=== PATIENT | male | born 1935 | race Caucasian/White ===

== ENCOUNTER 2017-01-14 07:39 | Emergency (ER) | payer MEDICARE, OTHER ==
--- NOTE | 2017-01-14 09:01 | ER Document Report ---
ED Fall - General Chief Complaint: Shoulder Pain Stated Complaint: SYNCOPE Time seen by provider: 08:57 Mode of Arrival: Medic Information source: Patient, Relative Notes: 81-year-old male presents to ED for left shoulder pain after having a possible syncopal episode this morning around 3:00. Patient is on Plavix. Patient denies headache but states he does have left shoulder pain. Patient is not sure why he fell. - HPI Occurred: This morning Where: Home Context: Lost balance - Patient states he is not sure if he lost his balance or if he just blacked out Associated symptoms: None Location of injury/pain: Shoulder - Left shoulder Quality of pain: Burning, Sharp Severity: Moderate Pain Level: 3 - Related data Allergies/Adverse Reactions: No Known Allergies Allergy (Unverified 04/01/14 01:48) Past Medical History - General Information source: Patient - Social History Smoking Status: Never Smoker Cigarette use (# per day): No Smoking Education Provided: No Frequency of alcohol use: None Drug Abuse: None Lives with: Family Family History: Reviewed & Not Pertinent, Other - Not obtainable due to patient condition - Past Medical History Cardiac Medical History: Reports: Hx Congestive Heart Failure, Hx Heart Attack - per family, Hx Hypercholesterolemia, Hx Hypertension Pulmonary Medical History: Reports: None Denies: Hx Tuberculosis EENT Medical History: Reports: None Neurological Medical History: Reports: Other - Previous syncopal episodes Endocrine Medical History: Reports: Hx Diabetes Mellitus Type 2 - On an insulin pump Renal/ Medical History: Reports: None Malignancy Medical History: Reports None GI Medical History: Reports: None Musculoskeltal Medical History: Reports Hx Arthritis, Reports Hx Musculoskeletal Deformity, Reports Hx Musculoskeletal Trauma Skin Medical History: Reports None Psychiatric Medical History: Reports: None Traumatic Medical History: Reports: None Infectious Medical History: Reports: None Past Surgical History: Reports: Hx Cardiac Surgery - stent - Immunizations Hx Diphtheria, Pertussis, Tetanus Vaccination: Yes Hx Pneumococcal Vaccination: 12/08/13 Review of Systems - Review of Systems Constitutional: No symptoms reported EENT: No symptoms reported Cardiovascular: Syncope - Possible syncopal episode Respiratory: No symptoms reported Gastrointestinal: No symptoms reported Genitourinary: No symptoms reported Male Genitourinary: No symptoms reported Musculoskeletal: Other - Left shoulder pain Skin: No symptoms reported Hematologic/Lymphatic: No symptoms reported Neurological/Psychological: No symptoms reported -: Yes All other systems reviewed and negative Physical Exam - Vital signs Vitals: Temp Pulse Resp BP Pulse Ox 98.1 F 76 18 129/56 H 97 01/14/17 08:00 01/14/17 08:00 01/14/17 08:00 01/14/17 08:00 01/14/17 08:00 Interpretation: Normal - General General appearance: Appears well, Alert - HEENT Head: Normocephalic, Atraumatic Eyes: Normal Pupils: PERRL - Respiratory Respiratory status: No respiratory distress Chest status: Nontender Breath sounds: Normal Chest palpation: Normal - Cardiovascular Rhythm: Regular Heart sounds: Normal auscultation Murmur: No - Abdominal Inspection: Normal Distension: No distension Bowel sounds: Normal Tenderness: Nontender Organomegaly: No organomegaly - Back Back: Normal, Nontender - Extremities General upper extremity: Normal inspection, Normal color, Normal temperature General lower extremity: Normal inspection, Nontender, Normal color, Normal ROM , Normal temperature, Normal weight bearing. No: Arnulfo's sign Shoulder: Tender, Limited ROM - Neurological Neuro grossly intact: Yes Cognition: Normal Orientation: AAOx4 [place] Coma Scale Eye Opening: Spontaneous [place] Coma Scale Verbal: Oriented [place] Coma Scale Motor: Obeys Commands Anthony Coma Scale Total: 15 Speech: Normal Motor strength normal: LUE, RUE, LLE, RLE Sensory: Normal - Psychological Associated symptoms: Normal affect, Normal mood - Skin Skin Temperature: Warm Skin Moisture: Dry Skin Color: Normal Course - Re-evaluation Re-evalutation: 01/14/17 10:06 Discussed x-ray and CT with patient. CT was ordered due to fall and patient on Plavix Dr. Akanksha Lehman was consulted she improved the CAT scan. 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 We'll have patient follow-up with orthopedic due to left shoulder pain. - Vital Signs Vital signs: Temp Pulse Resp BP Pulse Ox 97.9 F 78 18 142/67 H 95 01/14/17 10:20 01/14/17 10:20 01/14/17 10:20 01/14/17 10:20 01/14/17 10:20 - Laboratory Result Diagrams: 01/14/17 08:03 01/14/17 08:03 Laboratory results interpreted by me: 01/14/17 01/14/17 08:03 08:03 RBC 4.34 L Hgb 13.3 L Lymphocytes % 12.7 L Glucose 169 H Total Protein 5.9 L Albumin 3.2 L - Diagnostic Test Radiology reviewed: Image reviewed, Reports reviewed Discharge - Discharge Clinical Impression: Fall Qualifiers: Encounter type: initial encounter Qualified Code(s): W19.XXXA - Unspecified fall, initial encounter Left shoulder pain Qualifiers: Chronicity: acute Qualified Code(s): M25.512 - Pain in left shoulder Condition: Stable Disposition: HOME, SELF-CARE Instructions: Exercise Program for the Shoulder ([facility]) Additional Instructions: Shoulder Injury You have injured your shoulder. This usually results from stretching or tearing of the tendons during trauma. Time and protection are required in order to heal properly. Many injuries are quite disabling, and should be taken seriously. Initial treatment includes cold packs and a sling to rest the shoulder. The physician has assessed the seriousness of your injury, and has outlined a treatment plan. Understand that this treatment may change, depending on how you progress. If a re-examination was recommended, it is important that you follow up as instructed. Some shoulder injuries (such as partial tear of the rotator cuff) are only suspected after you've failed to improve. Call us if there's severe pain, numbness, or loss of function. Acetaminophen Acetaminophen may be taken for pain relief or fever control. It's much safer than aspirin, offering a wider range of "safe" dosages. It is safe during . Some brand names are Tylenol, Panadol, Datril, Anacin 3, Tempra, and Liquiprin. Acetaminophen can be repeated every four hours. The following are maximum recommended dosages: WEIGHT Dose Drops Elixir Chewable( 80mg) (LBS.) drprs=droppers tsp=teaspoon 6 40 mg .4 ml (1/2) 6-11 80 mg .8 ml (full) 1/2 tsp 1 tab 12-16 120 mg 1 1/2 drprs 3/4 tsp 1 1/2 tabs 17-23 160 mg 2 drprs 1 tsp 2 tabs 24-30 240 mg 3 drprs 1 1/2 tsp 3 tabs 30-35 320 mg 2 tsp 4 tabs 36-41 360 mg 2 1/4 tsp 4 1 /2 tabs 42-47 400 mg 2 1/2 tsp 5 tabs 48-53 480 mg 3 tsp 6 tabs 54-59 520 mg 3 1/4 tsp 6 1 /2 tabs 60-64 560 mg 3 1/2 tsp 7 tabs 65-70 600 mg 3 3/4 tsp 7 1 /2 tabs 71-76 640 mg 4 tsp 8 tabs 77-82 720 mg 4 1/2 tsp 9 tabs 83-88 800 mg 5 tsp 10 tabs >89 pounds or adults 650 mg to 900 mg Acetaminophen can be repeated every four hours. Maximum daily dose not to exceed 4000 mg. These maximum recommended dosages are slightly higher than the dosages written on the product container, but these dosages are very safe and well below the toxic dosage for acetaminophen. FOLLOW-UP CARE: If you have been referred to a physician for follow-up care, call the physician s office for an appointment as you were instructed or within the next two days. If you experience worsening or a significant change in your symptoms, notify the physician immediately or return to the Emergency Department at any time for re-evaluation. Forms: Elevated Blood Pressure Referrals: PARKER ANGELES MD [Primary Care Provider] - Follow up as needed DARIEL SCHULZ MD [ACTIVE STAFF] - Follow up as needed
[2017-01-14 09:09] LABS: ABSOLUTE EOSINOPHILS # (AUTO) 0.3 10^3/uL (0.0-0.6); ABSOLUTE MONOCYTES (AUTO) 0.8 10^3/uL (0.1-1.4); ABSOLUTE NEUT (AUTO) 5.6 10^3/uL (1.7-8.2); BASOPHILS % (AUTO) 0.4 % (0-2); EOSINOPHILS % (AUTO) 4.2 % (0-6); HEMOGLOBIN 13.3 g/dL (13.5-17.0); HGB HCT DIFFERENCE 1.9; LYMPHOCYTES % (AUTO) 12.7 % (13-45); MEAN CORPUSCULAR HEMOGLOBIN 30.6 pg (27.0-33.4); MEAN CORPUSCULAR HGB CONC 34.9 g/dL (32.0-36.0); MEAN CORPUSCULAR VOLUME 88 fl (80-97); RED BLOOD COUNT 4.34 10^6/uL (4.35-5.55); RED CELL DISTRIBUTION WIDTH 13.2 % (11.5-14.0); SEGMENTED NEUTROPHILS % (AUTO) 72.7 % (42-78); WHITE BLOOD COUNT 7.7 10^3/uL (4.0-10.5)
[2017-01-14 09:15] LABS: ALANINE AMINOTRANSFERASE 44 U/L (21-72); ALBUMIN 3.2 g/dL (3.5-5.0); ALKALINE PHOSPHATASE 79 U/L (38-126); ANION GAP 13 (5-19); ASPARTATE AMINO TRANSFERASE 33 U/L (17-59); BILIRUBIN,TOTAL 0.8 mg/dL (0.2-1.3); BLOOD UREA NITROGEN 14 mg/dL (7-20); CARBON DIOXIDE 23 mmol/L (22-30); CHLORIDE 103 mmol/L (98-107); CREATINE KINASE 82 U/L (55-170); CREATININE RESULT 0.72 mg/dL (0.52-1.25); GLUCOSE 169 mg/dL (75-110); POTASSIUM 4.1 mmol/L (3.6-5.0); SODIUM 138.7 mmol/L (137-145); TOTAL PROTEIN 5.9 g/dL (6.3-8.2)
[2017-01-14 09:25] LABS: CREATINE KINASE MB 1.56 ng/mL (<4.55)
[2017-01-14 09:28] LABS: TROPONIN I < 0.012 ng/mL
[2017-01-14 10:33] VITALS: BP 142/67
--- NOTE | 2017-01-14 16:11 | EKG REPORT ---
SEVERITY:- ABNORMAL ECG - SINUS RHYTHM RIGHT BUNDLE BRANCH BLOCK : Confirmed by: Evelia Kumar MD 14-Jan-2017 16:10:52
== END 2017-01-14 10:30 | disposition home or self-care (01) ==
LOC: ER 07:39
DX: M25.512 Pain in left shoulder (principal); R55 Syncope and collapse; W19.XXXA Unspecified fall, initial encounter
CPT/HCPCS: 36415; 70450; 80053; 82550; 82553; 84484; 85025; 93005; 93010; 99284

== ENCOUNTER 2017-05-21 00:27 | Inpatient (IN) | payer MEDICARE, OTHER ==
--- NOTE | 2017-05-21 01:08 | ER Document Report ---
ED Blood Sugar Problem - General Chief Complaint: Low Blood Sugar Stated Complaint: POSSIBLE LOW BLOOD SUGER LEVEL Time Seen by Provider: 05/21/17 01:04 Mode of Arrival: Stretcher Information source: Emergency Med Personnel - [facility] Patient complains to provider of: Altered mental status, low blood sugar Onset: This evening Quality of pain: No pain Notes: Patient is an 81-year-old male brought to the emergency room by EMS for low blood sugar, patient's son reports he spoke to him around 6 PM and he was acting normal, a caregiver stop by at 10 PM to check on patient, found him on the floor, cold, clammy, unresponsive, blood sugar was measured to be 36, family and caregiver are unsure how long patient was in this condition, EMS arrived and administered IV dextrose, patient's family members report he is still not quite back to his baseline status at this point in time even though his blood sugar has been adequately improved, they deny any recent illness or injury, no cough, cold or congestion, no recent fevers, no nausea, vomiting or diarrhea, patient lives at home alone, has a history of diabetes as well as other medical problems, including Alzheimer's, he has an insulin pump, family is really unable to provide accurate details given the fact the patient lives home alone - Related Data Allergies/Adverse Reactions: No Known Allergies Allergy (Unverified 04/01/14 01:48) Past Medical History - General Information source: Relative, Emergency Med Personnel - Social History Smoking Status: Former Smoker Family History: Reviewed & Not Pertinent, Other - Not obtainable due to patient condition - Past Medical History Cardiac Medical History: Reports: Hx Congestive Heart Failure, Hx Heart Attack - per family, Hx Hypercholesterolemia, Hx Hypertension Pulmonary Medical History: Denies: Hx Tuberculosis Endocrine Medical History: Reports: Hx Diabetes Mellitus Type 2 - On an insulin pump Musculoskeltal Medical History: Reports Hx Arthritis, Reports Hx Musculoskeletal Deformity, Reports Hx Musculoskeletal Trauma Psychiatric Medical History: Reports: Hx Schizophrenia Past Surgical History: Reports: Hx Cardiac Surgery - stent - Immunizations Hx Diphtheria, Pertussis, Tetanus Vaccination: Yes Hx Pneumococcal Vaccination: 12/08/13 Review of Systems - Review of Systems -: Yes ROS unobtainable due to patient's medical condition Neurological/Psychological: No symptoms reported Physical Exam - Vital signs Vitals: Resp Pulse Ox 22 H 92 05/21/17 00:29 05/21/17 00:29 Interpretation: Tachypneic - General General appearance: Alert - HEENT Head: Normocephalic, Atraumatic Eyes: Normal Conjunctiva: Normal Extraocular movements intact: Yes Eyelashes: Normal Pupils: PERRL Mucous membranes: Dry Pharynx: Normal Neck: Normal - Respiratory Respiratory status: No respiratory distress Chest status: Nontender Breath sounds: Normal Chest palpation: Normal - Cardiovascular Rhythm: Regular Heart sounds: Normal auscultation Murmur: No - Abdominal Distension: Distended Bowel sounds: Hypoactive Tenderness: Nontender Organomegaly: No organomegaly - Back Back: Normal - Extremities General upper extremity: Normal inspection General lower extremity: Normal inspection - Neurological Orientation: Disoriented to place, Disoriented to time, Disoriented to events Anthony Coma Scale Eye Opening: Spontaneous [place] Coma Scale Verbal: Confused Anthony Coma Scale Motor: Obeys Commands Anthony Coma Scale Total: 14 Cranial nerves: Normal - Skin Skin Temperature: Cool Skin Moisture: Dry Skin Color: Pale Course - Re-evaluation Re-evalutation: 05/21/17 02:40 Patient with hypercapnia and acidosis, likely related to low blood sugar and unknown time of patient being hypoxic related to this, patient was discussed with the hospitalist who agrees to admit for further evaluation and treatment - Vital Signs Vital signs: Temp Pulse Resp BP Pulse Ox 97.9 F 18 157/109 H 94 05/21/17 01:00 05/21/17 01:01 05/21/17 01:00 05/21/17 01:01 - Laboratory Result Diagrams: 05/21/17 01:21 05/21/17 01:21 Laboratory results interpreted by me: 05/21/17 05/21/17 05/21/17 00:33 01:21 01:21 WBC 11.7 H Seg Neutrophils % 85.2 H Lymphocytes % 8.0 L Absolute Neutrophils 9.9 H VBG pH VBG pCO2 BUN 27 H POC Glucose 111 H 05/21/17 01:21 WBC Seg Neutrophils % Lymphocytes % Absolute Neutrophils VBG pH 7.24 L VBG pCO2 66.3 H* BUN POC Glucose - Diagnostic Test Radiology reviewed: Image reviewed, Reports reviewed - EKG Interpretation by Me EKG shows normal: Sinus rhythm [place]/QRS: RBBB Additional EKG results interpreted by me: 05/21/17 02:41 Ventricular trigeminy - Transfer of Care Care transferred to following provider: Dr. Sparks Critical Care Note - Critical Care Note Total time excluding time spent on procedures (mins): 40 Comments: Patient with altered mental status, low blood sugar, hypercapnic on blood gas, likely from possible anoxic brain injury related to hypoglycemia, patient was discussed with the hospitalist who agrees to admit for further evaluation and treatment Discharge - Discharge Clinical Impression: Hypercapnic acidosis, Hypoglycemia, Metabolic encephalopathy Condition: Serious Disposition: ADMITTED INPATIENT Admitting Provider: Hospitalist Unit Admitted: [facility]
[2017-05-21 01:37] LABS: VENOUS BLOOD BASE EXCESS -1.6 mmol/L; VENOUS BLOOD HCO3 27.6 mmol/L (20-32); VENOUS BLOOD PH 7.24 (7.30-7.42)
[2017-05-21 01:44] LABS: ABSOLUTE BASOPHILS # (AUTO) 0.1 10^3/uL (0.0-0.2); ABSOLUTE EOSINOPHILS # (AUTO) 0.1 10^3/uL (0.0-0.6); ABSOLUTE LYMPHOCYTES (AUTO) 0.9 10^3/uL (0.5-4.7); ABSOLUTE MONOCYTES (AUTO) 0.7 10^3/uL (0.1-1.4); ABSOLUTE NEUT (AUTO) 9.9 10^3/uL (1.7-8.2); BASOPHILS % (AUTO) 0.5 % (0-2); EOSINOPHILS % (AUTO) 0.5 % (0-6); HEMOGLOBIN 15.5 g/dL (13.5-17.0); HGB HCT DIFFERENCE 1.5; MEAN CORPUSCULAR HGB CONC 34.4 g/dL (32.0-36.0); MEAN CORPUSCULAR VOLUME 90 fl (80-97); MONOCYTES % (AUTO) 5.8 % (3-13); RED BLOOD COUNT 4.99 10^6/uL (4.35-5.55); RED CELL DISTRIBUTION WIDTH 13.2 % (11.5-14.0); SEGMENTED NEUTROPHILS % (AUTO) 85.2 % (42-78); WHITE BLOOD COUNT 11.7 10^3/uL (4.0-10.5)
[2017-05-21 01:48] LABS: VENOUS BLOOD PCO2 66.3 mmHg (35-63)
[2017-05-21 01:52] LABS: ALANINE AMINOTRANSFERASE 37 U/L (21-72); ALBUMIN 4.3 g/dL (3.5-5.0); ALKALINE PHOSPHATASE 107 U/L (38-126); ANION GAP 13 (5-19); ASPARTATE AMINO TRANSFERASE 57 U/L (17-59); BILIRUBIN,DIRECT 0.3 mg/dL (0.0-0.4); BILIRUBIN,TOTAL 0.7 mg/dL (0.2-1.3); BLOOD UREA NITROGEN 27 mg/dL (7-20); CALCIUM 9.2 mg/dL (8.4-10.2); CARBON DIOXIDE 24 mmol/L (22-30); CHLORIDE 105 mmol/L (98-107); CREATININE RESULT 1.12 mg/dL (0.52-1.25); GLUCOSE 84 mg/dL (75-110); POTASSIUM 3.9 mmol/L (3.6-5.0); SODIUM 142.1 mmol/L (137-145); TOTAL PROTEIN 7.8 g/dL (6.3-8.2)
--- NOTE | 2017-05-21 01:56 | RADIOLOGY REPORT (SQ) ---
EXAM DESCRIPTION: CHEST SINGLE VIEW COMPLETED DATE/TIME: 05/21/2017 1:48 am REASON FOR STUDY: ams COMPARISON: 04/28/2014 EXAM PARAMETERS: NUMBER OF VIEWS: One view. TECHNIQUE: Single frontal radiographic view of the chest acquired. RADIATION DOSE: NA LIMITATIONS: None. FINDINGS: LUNGS AND PLEURA: No opacities, masses or pneumothorax. No pleural effusion. MEDIASTINUM AND HILAR STRUCTURES: No masses. Contour normal. HEART AND VASCULAR STRUCTURES: Heart normal in size. Normal vasculature. BONES: No acute findings. HARDWARE: None in the chest. OTHER: No other significant finding. IMPRESSION: NO ACUTE RADIOGRAPHIC FINDING IN THE CHEST. TECHNICAL DOCUMENTATION: JOB ID: [id number]
--- NOTE | 2017-05-21 01:56 | RADIOLOGY REPORT (SQ) ---
EXAM DESCRIPTION: CT HEAD WITHOUT COMPLETED DATE/TIME: 05/21/2017 1:47 am REASON FOR STUDY: ams, fall, low glucose COMPARISON: 01/14/2017 TECHNIQUE: Axial images acquired through the brain without intravenous contrast. Images reviewed wi th bone, brain and subdural windows. Images stored on PACS. All CT scanners at this facility use dose modulation, iterative reconstruction, and/or weight based d osing when appropriate to reduce radiation dose to as low as reasonably achievable (ALARA). [facility]: Dose Right [facility]: CareDose [facility]: Dose Right [facility]: Teradose 4D [facility]: SocialVolt RADIATION DOSE: mGy. LIMITATIONS: None. FINDINGS: VENTRICLES: Prominent. CEREBRUM: No masses. No hemorrhage. No midline shift. Areas of low density in the white matter mos t likely due to chronic micro-vascular ischemic change. No evidence for acute infarction. CEREBELLUM: Old cerebellar infarcts. No hemorrhage. No mass effect. EXTRAAXIAL SPACES: Age-related involutional change. No fluid collections. No masses. ORBITS AND GLOBE: No intra- or extraconal masses. Normal contour of globe without masses. CALVARIUM: No fracture. PARANASAL SINUSES: No fluid or mucosal thickening. SOFT TISSUES: No mass or hematoma. OTHER: No other significant finding. IMPRESSION: CHRONIC CHANGES OF ATROPHY AND MICROVASCULAR ISCHEMIA. Old cerebellar infarcts. NO ACUTE PROCESS. TECHNICAL DOCUMENTATION: JOB ID: [id number] Quality ID # [id number]: Final reports with documentation of one or more dose reduction techniques (e.g., Au tomated exposure control, adjustment of the mA and/or kV according to patient size, use of iterative reconstruction technique) 2010 [employer]- All Rights Reserved
[2017-05-21 02:01] LABS: MAGNESIUM 2.1 mg/dL (1.6-2.3)
[2017-05-21 02:06] LABS: ALCOHOL < 10 mg/dL (NONE DETECTED)
[2017-05-21] MEDS ORDERED: ONDANSETRON HCL INJ/PF 4 MG/2 ML SDV ONE ×2 (02:18→03:22)
[2017-05-21] MEDS ORDERED: PHARMACY COMMUNICATION ORDER MC NR (02:30)
[2017-05-21] MEDS ORDERED: LORAZEPAM INJ 2 MG/1 ML VIAL IV ONE (03:02)
[2017-05-21] MEDS ORDERED: GLUCAGON,HUMAN RECOMB 1 MG INJ IM PRN (03:15)
[2017-05-21] MEDS ORDERED: DEXTROSE 50%-WATER 25 GM/50 ML DISP.SYRIN IV PRN ×2 (03:15)
[2017-05-21] MEDS ORDERED: DEXTROSE 40% GEL 15 GM TUBE PO PRN ×2 (03:15)
--- NOTE | 2017-05-21 03:26 | RADIOLOGY REPORT (SQ) ---
EXAM DESCRIPTION: ABDOMEN 2 VIEWS COMPLETED DATE/TIME: 05/21/2017 3:18 am REASON FOR STUDY: distension vomiting COMPARISON: 11/26/2013 NUMBER OF VIEWS: Two views. TECHNIQUE: Supine and erect/decubitus radiographic images of the abdomen acquired. LIMITATIONS: None. FINDINGS: FREE AIR: None. No abnormal gas collections. LUNG BASES: Clear. BOWEL GAS PATTERN: Gastric distension. Small and large bowel normal. CALCIFICATIONS: No suspicious calcifications. SOFT TISSUES: No gross mass or suggestion of organomegaly. HARDWARE: None in the abdomen. BONES: No acute fracture. No worrisome bone lesions. OTHER: No other significant finding. IMPRESSION: Marked gastric distention. TECHNICAL DOCUMENTATION: JOB ID: [id number] [employer]- All Rights Reserved
[2017-05-21] MEDS: IPRATROPIUM/ALBUTEROL 0.5-2.5 MG/3 ML AMPUL NEB PRN (03:31)
[2017-05-21] MEDS ORDERED: LIDOCAINE 1% INJ-PF (10 MG/ML) 30 ML SDV ONE (03:46)
[2017-05-21] MEDS ORDERED: ALBUTEROL SULFATE 0.083% NEB 2.5 MG/3 ML AMPUL NEB ONE (03:47)
[2017-05-21] MEDS ORDERED: ETOMIDATE INJ/PF 20 MG/10 ML SDV IV ONE (04:00)
[2017-05-21 04:38] LABS: ARTERIAL BLOOD BASE EXCESS -1.4 mmol/L; ARTERIAL BLOOD O2 SATURATION 45.6 % (94-98)
--- NOTE | 2017-05-21 04:39 | RADIOLOGY REPORT (SQ) ---
EXAM DESCRIPTION: CHEST SINGLE VIEW COMPLETED DATE/TIME: 05/21/2017 4:31 am REASON FOR STUDY: DB COMPARISON: 05/21/2017 0130 hours EXAM PARAMETERS: NUMBER OF VIEWS: One view. TECHNIQUE: Single frontal radiographic view of the chest acquired. RADIATION DOSE: NA LIMITATIONS: None. FINDINGS: LUNGS AND PLEURA: Basilar opacities not seen previously. Question aspiration complex. MEDIASTINUM AND HILAR STRUCTURES: No masses. Contour normal. HEART AND VASCULAR STRUCTURES: Heart normal in size. Normal vasculature. BONES: No acute findings. HARDWARE: Nasogastric tube tip in the stomach. OTHER: No other significant finding. IMPRESSION: Basilar opacities not seen previously. Question aspiration complex. TECHNICAL DOCUMENTATION: JOB ID: [id number]
--- NOTE | 2017-05-21 05:19 | RADIOLOGY REPORT (SQ) ---
EXAM DESCRIPTION: CT ABD/PELVIS WITH IV ONLY COMPLETED DATE/TIME: 05/21/2017 4:47 am REASON FOR STUDY: abd pain, vomiting COMPARISON: None. TECHNIQUE: CT scan of the abdomen and pelvis performed using helical scanning technique with dynamic intravenous contrast injection. No oral contrast. Images reviewed with lung, soft tissue, and bone windows. Reconstructed coronal and sagittal MPR images reviewed. Delayed images for evaluation of the urinary system also acquired. All images stored on PACS. All CT scanners at this facility use dose modulation, iterative reconstruction, and/or weight based d osing when appropriate to reduce radiation dose to as low as reasonably achievable (ALARA). [facility]: Dose Right [facility]: CareDose [facility]: Dose Right [facility]: Teradose 4D [facility]: u.sit CONTRAST TYPE AND DOSE: contrast/concentration: Isovue 370.00 mg/ml; Total Contrast Delivered: 94.0 ml; Total Saline Delivered: 58.8 ml RENAL FUNCTION: Creatinine 1.12 RADIATION DOSE: Up-to-date CT equipment and radiation dose reduction techniques were employed. CTDIv ol: 16.6 - 19.9 mGy. DLP: 2067 mGy-cm.. LIMITATIONS: None. FINDINGS: LOWER CHEST: Bilateral pleural effusions. Air bronchograms indicating basilar pneumonia. LIVER: Normal size. No masses. No dilated ducts. SPLEEN: Normal size. No focal lesions. PANCREAS: No masses. No significant calcifications. No adjacent inflammation or peripancreatic fluid collections. Pancreatic duct not dilated. GALLBLADDER: No identified stones by CT criteria. No inflammatory changes to suggest cholecystitis. ADRENAL GLANDS: No significant masses or asymmetry. RIGHT KIDNEY AND URETER: Right renal cyst. No significant calcifications. No hydronephrosis or hy droureter. LEFT KIDNEY AND URETER: No solid masses. No significant calcifications. No hydronephrosis or hydr oureter. AORTA AND VESSELS: No aneurysm. No dissection. Renal arteries, SMA, celiac without stenosis. RETROPERITONEUM: No retroperitoneal adenopathy, hemorrhage or masses. BOWEL AND PERITONEAL CAVITY: No masses or inflammatory changes. No free fluid or peritoneal masses. APPENDIX: Normal. PELVIS: No mass. No free fluid. Normal bladder. ABDOMINAL WALL: No masses. No hernias. BONES: No significant or acute findings. OTHER: NG tube. Stomach decompressed. IMPRESSION: Bilateral pleural effusions with bilateral pneumonia. No acute intra-abdominal process. TECHNICAL DOCUMENTATION: JOB ID: [id number] Quality ID # [id number]: Final reports with documentation of one or more dose reduction techniques (e.g., Au tomated exposure control, adjustment of the mA and/or kV according to patient size, use of iterative reconstruction technique) 2010 [employer]- All Rights Reserved
--- NOTE | 2017-05-21 05:20 | RADIOLOGY REPORT (SQ) ---
EXAM DESCRIPTION: KUB/ABDOMEN (SINGLE VIEW) COMPLETED DATE/TIME: 05/21/2017 5:01 am REASON FOR STUDY: NGT COMPARISON: 05/21/2017 0301 hours NUMBER OF VIEWS: One view. TECHNIQUE: Supine radiographic image of the abdomen acquired. LIMITATIONS: None. FINDINGS: BOWEL GAS PATTERN: Stomach decompressed. CALCIFICATIONS: No suspicious calcifications. SOFT TISSUES: No gross mass or suggestion of organomegaly. HARDWARE: Nasogastric tube tip in the stomach. BONES: No acute fracture. No worrisome bone lesions. OTHER: Contrast in the kidneys. IMPRESSION: Decompression of the stomach after placement of NG tube. TECHNICAL DOCUMENTATION: JOB ID: [id number] [employer]- All Rights Reserved
[2017-05-21] MEDS ORDERED: LEVOFLOXACIN 750 MG/D5W RTU 150 ML IV ONE (05:24)
[2017-05-21 05:41] LABS: APPEARANCE,URINE SLIGHTLY-CLOUDY; BILIRUBIN,URINE NEGATIVE (NEGATIVE); GLUCOSE, URINE 50 mg/dL (NEGATIVE); KETONES,URINE NEGATIVE (NEGATIVE); LEUKOCYTE ESTERASE,URINE NEGATIVE (NEGATIVE); NITRITE,URINE NEGATIVE (NEGATIVE); PROTEIN,URINE 100 mg/dL (NEGATIVE); URINE SPECIFIC GRAVITY 1.029; UROBILINOGEN,URINE NEGATIVE mg/dL (<2.0)
[2017-05-21 06:08] LABS: CREATINE KINASE MB 3.08 ng/mL (<4.55)
[2017-05-21 06:09] LABS: ARTERIAL BLOOD BASE EXCESS -1.8 mmol/L; ARTERIAL BLOOD O2 SATURATION 98.2 % (94-98)
[2017-05-21 06:11] LABS: TROPONIN I < 0.012 ng/mL
[2017-05-21] MEDS ORDERED: ACETAMINOPHEN 325 MG TABLET PO PRN (06:22)
[2017-05-21] MEDS ORDERED: GUAIFENESIN SYRP 200 MG/10 ML UDC PO PRN (06:22)
[2017-05-21] MEDS ORDERED: MINERAL OIL ENEMA 133 ML PR PRN (06:24)
[2017-05-21] MEDS ORDERED: POTASSI CL 20 MEQ/D5-1/2NS 1L 1,000 ML IV ONE (06:36)
--- NOTE | 2017-05-21 06:50 | PDOC H&P ---
History of Present Illness Admission Date/PCP: 05/21/17 02:20 PARKER ANGELES MD Patient complains of: Altered mental status History of Present Illness: ESNTHIL WALDEN JR is a 81 year old male with a past medical history of diabetes, depression, anxiety, COPD, diastolic heart failure and coronary artery disease who would been in his usual state of health until approximately 4 hours prior to being found by caregiver on the floor, cold, clammy and unresponsive. Blood sugar was found to be 36 EMS arrived administering IV dextrose and brought to the emergency room for evaluation. Family members at bedside verify he is not mentating at baseline. His initial workup is unremarkable but develops nausea with vomiting and abdominal distention. An abdominal series was obtained showing market gastric distention, an NG tube was placed, CT abdomen however is unremarkable for intra-abdominal process however shows bilateral pneumonia with small effusions. He started on BiPAP, empiric antibiotics and referred to the hospitalist for admission. Patient is unable to provide history. Family members are no longer at bedside. Past Medical History Cardiac Medical History: Reports: Congestive Heart Failure, Myocardial Infarction - per family, Hyperlipidema, Hypertension Pulmonary Medical History: Denies: Tuberculosis Endocrine Medical History: Reports: Diabetes Mellitus Type 2 - On an insulin pump Musculoskeltal Medical History: Reports: Arthritis Hematology: Denies: Anemia, Sickle Cell Disease Social History Information Source: Emergency Med Personnel, [facility] Records Lives with: Alone Smoking Status: Former Smoker Frequency of Alcohol Use: None Hx Recreational Drug Use: No Hx Prescription Drug Abuse: No - Advance Directive Resuscitation Status: Full Code Family History Family History: Reviewed & Not Pertinent, Other - Not obtainable due to patient condition Parental Family History Reviewed: Yes - Unobtainable Children Family History Reviewed: Yes - Unobtainable Sibling(s) Family History Reviewed.: Yes - Unobtainable Medication/Allergy Home Medications: Aspirin [Aspirin 81 mg Chewable Tablet] 81 mg PO DAILY 04/01/14 Atorvastatin Calcium 10 mg PO QHS 04/01/14 Citalopram Hydrobromide [Celexa 40 mg Tablet] 40 mg PO DAILY 04/01/14 Insulin Glargine,Hum.rec.anlog [Lantus] 50 units SQ QHS 04/01/14 Insulin Lispro [Humalog] 04/01/14 Loratadine [Claritin] 10 mg PO DAILY 06/03/14 Metoprolol Tartrate [Lopressor 50 mg Tablet] 50 mg PO BID 04/01/14 Metoprolol Tartrate [Lopressor 50 mg Tablet] 50 mg PO BID 04/01/14 Ticagrelor [Brilinta 90 mg Tablet] 90 mg PO BID 04/01/14 Tiotropium [place] [Spiriva Handihaler 18 mcg/dose (30 Dose)] 1 inh IH DAILY 01/10 Allergies/Adverse Reactions: No Known Allergies Allergy (Verified 05/21/17 06:13) Review of Systems ROS unobtainable: Due to mental status - Unobtainable Physical Exam Vital Signs: Temp Pulse Resp BP Pulse Ox 97.9 F 22 H 115/59 L 100 05/21/17 01:00 05/21/17 06:15 05/21/17 06:15 05/21/17 06:15 General appearance: PRESENT: disheveled, mild distress Head exam: PRESENT: atraumatic, normocephalic Eye exam: PRESENT: conjunctiva pink, EOMI, PERRLA. ABSENT: scleral icterus Ear exam: PRESENT: normal external ear exam Mouth exam: PRESENT: moist, tongue midline Neck exam: ABSENT: carotid bruit, JVD, lymphadenopathy, thyromegaly Respiratory exam: PRESENT: accessory muscle use, crackles, prolonged expiratory phas, rhonchi, symmetrical, tachypnea Cardiovascular exam: PRESENT: RRR. ABSENT: diastolic murmur, rubs, systolic murmur Pulses: PRESENT: normal dorsalis pedis pul Vascular exam: PRESENT: normal capillary refill GI/Abdominal exam: PRESENT: normal bowel sounds, soft. ABSENT: distended, guarding, mass, organolmegaly, rebound, tenderness Rectal exam: PRESENT: deferred Extremities exam: PRESENT: +1 edema Neurological exam: PRESENT: alert, altered, awake, oriented to person, CN II- XII grossly intact. ABSENT: motor sensory deficit Skin exam: PRESENT: dry, intact, warm. ABSENT: cyanosis, rash Results Laboratory Results: 05/21/17 05/21/17 05/21/17 04:25 05:15 05:55 Carbonic Acid 1.71 H 1.16 HCO3/H2CO3 Ratio 15:1 19:1 ABG pH 7.29 L 7.39 ABG pCO2 56.7 H 38.4 ABG pO2 28.4 L* 115.8 H ABG HCO3 26.4 H 22.8 ABG O2 Saturation 45.6 L 98.2 H ABG Base Excess -1.4 -1.8 FiO2 100% 100% Urine Color YELLOW Urine Appearance SLIGHTLY-CLOUDY Urine pH 5.0 Ur Specific [place] 1.029 Urine Protein 100 H Urine Glucose (UA) 50 H Urine Ketones NEGATIVE Urine Blood NEGATIVE Urine Nitrite NEGATIVE Ur Leukocyte Esterase NEGATIVE Urine WBC (Auto) 2 Urine RBC (Auto) 1 05/21/17 05/21/17 05:32 05:32 Creatine Kinase 112 CK-MB (CK-2) 3.08 Troponin I < 0.012 Impressions: Abdomen X-Ray 05/21/17 00:00 IMPRESSION: Marked gastric distention. Head CT 05/21/17 01:35 IMPRESSION: CHRONIC CHANGES OF ATROPHY AND MICROVASCULAR ISCHEMIA. Old cerebellar infarcts. NO ACUTE PROCESS. Abdomen/Pelvis CT 05/21/17 04:00 IMPRESSION: Bilateral pleural effusions with bilateral pneumonia. No acute intra-abdominal process. KUB X-Ray 05/21/17 04:30 IMPRESSION: Decompression of the stomach after placement of NG tube. Assessment & Plan - Diagnosis (1) Pneumonia Is this a current diagnosis for this admission?: YesPlan: Community-acquired pneumonia, empiric antibiotics, albuterol and Atrovent, supplemental oxygen and BiPAP as needed. Follow-up CBC blood and sputum culture (2) Encephalopathy Is this a current diagnosis for this admission?: YesPlan: Multifactorial secondary to hypoglycemia and acute illness however it is unclear how long he has hypoglycemic event persisted. His son spoke with him approximately 4 hours prior to being found hypoglycemic. Continue supportive measures D5 half-normal saline with 20 potassium 150/h with Accu-Cheks every 6 hours. (3) Ileus Is this a current diagnosis for this admission?: YesPlan: Likely secondary to hypoglycemia versus pneumonia. Suggested by marketed gastric distention improved with NG decompression. Supportive care introduction of diet as tolerated. (4) Hypoglycemia Is this a current diagnosis for this admission?: YesPlan: Likely secondary to pneumonia and poor p.o. intake. He is receiving D5 half- normal saline with 20 potassium at 150 an hour with Accu-Cheks every 6 hours. - Time Time Spent: 50 to 70 Minutes - Inpatient Certification Medical Necessity: Need Close Monitoring Due to Risk of Patient Decompensation
[2017-05-21] MEDS: IPRATROPIUM/ALBUTEROL 0.5-2.5 MG/3 ML AMPUL NEB SCH ×3 (08:15→19:58)
[2017-05-21] MEDS ORDERED: ACETAMINOPHEN SOLN 325 MG/10.15 ML UDCUP NG PRN (08:16)
[2017-05-21] MEDS ORDERED: GUAIFENESIN SYRP 200 MG/10 ML UDC NG PRN (08:17)
[2017-05-21] MEDS ORDERED: (PENDING PHARMACY ID) (Citalopram Hydrobromide [Celexa 40 Mg Tablet] 40 MG) PO SCH (10:00)
[2017-05-21] MEDS: METOPROLOL TARTRATE 50 MG TABLET NG SCH ×2 (10:31→21:03)
[2017-05-21] MEDS: ASPIRIN 81 MG TABLET, CHEWABLE NG SCH (10:31)
[2017-05-21] MEDS: TIOTROPIUM BROMIDE DPI 5 CAP/KIT (18 MCG/CAP) IH SCH (10:31)
[2017-05-21] MEDS: CITALOPRAM HYDROBROMIDE 20 MG TABLET PO SCH (10:31)
[2017-05-21 12:10] LABS: CREATINE KINASE MB 6.99 ng/mL (<4.55)
[2017-05-21 12:16] LABS: TROPONIN I < 0.012 ng/mL
--- NOTE | 2017-05-21 12:54 | PDOC PROGRESS REPORT ---
Subjective Progress Note for:: 05/21/17 Physical Exam Vital Signs: Temp Pulse Resp BP Pulse Ox 98.6 F 84 16 108/47 L 94 05/21/17 11:12 05/21/17 11:12 05/21/17 11:12 05/21/17 11:12 05/21/17 11:12 Intake & Output 05/20/17 05/21/17 05/22/17 06:59 06:59 06:59 Intake Total 0 Output Total 0 Balance 0 Weight 87.8 kg GENERAL: This is a well-developed well-nourished appearing white male resting on bilevel Pap currently in no acute distress. HEART: Regular rate and rhythm. No murmurs, rubs or gallops. LUNGS: Left lower lobe coarse breath sounds with equal rise and fall of the chest. The patient is currently on bilevel Pap at the bedside. His FiO2 has been turned down to 75% from 100%. ABDOMEN: Soft, nontender, nondistended with normoactive bowel sounds EXTREMETIES: No clubbing, cyanosis or edema. 1+ peripheral pulses bilaterally. NEURO: Awake, alert and oriented 3. (The patient was just reoriented prior to my coming into the room. Just before this he was found to be only oriented 2) . Cranial nerves II through XII are grossly intact. Results Laboratory Results: 05/21/17 05/21/17 11:28 11:28 Creatine Kinase 192 H CK-MB (CK-2) 6.99 H Troponin I < 0.012 Impressions: Abdomen X-Ray 05/21/17 00:00 IMPRESSION: Marked gastric distention. Head CT 05/21/17 01:35 IMPRESSION: CHRONIC CHANGES OF ATROPHY AND MICROVASCULAR ISCHEMIA. Old cerebellar infarcts. NO ACUTE PROCESS. Abdomen/Pelvis CT 05/21/17 04:00 IMPRESSION: Bilateral pleural effusions with bilateral pneumonia. No acute intra-abdominal process. KUB X-Ray 05/21/17 04:30 IMPRESSION: Decompression of the stomach after placement of NG tube. Assessment & Plan - Diagnosis (1) Acute respiratory failure with hypoxemia Plan: The patient is currently on bilevel Pap. He seems to be tolerating this well. We will just wean down his FiO2. I will continue to follow. He is received a breathing treatment. His respiratory failure secondary to what is likely a community-acquired pneumonia. (2) Pneumonia Qualifiers: Pneumonia type: due to unspecified organism Laterality: bilateral Lung location: lower lobe of lung Qualified Code(s): J18.9 - Pneumonia, unspecified organism Is this a current diagnosis for this admission?: YesPlan: Continue current antibiotics. Monitor white blood cell count. (3) Hypoglycemia Is this a current diagnosis for this admission?: YesPlan: Resolved. Continue to monitor with before meals at bedtime blood glucose checks (4) Ileus Is this a current diagnosis for this admission?: Yes (5) Metabolic encephalopathy Plan: Improved. The patient is currently oriented. - Time Time Spent with patient: 15-24 minutes - Inpatient Certification Medical Necessity: Need Close Monitoring Due to Risk of Patient Decompensation
[2017-05-21] MEDS: INSULIN LISPRO 100 UNIT/ML 3 ML VIAL SUBCUT PRN ×2 (13:36→23:02)
[2017-05-21] MEDS: HEPARIN SOD (PORCINE) 5,000 UNIT/ML 1 ML SYRINGE SUBCUT SCH ×2 (13:36→21:03)
--- NOTE | 2017-05-21 13:51 | EKG REPORT ---
SEVERITY:- ABNORMAL ECG - SINUS RHYTHM VENTRICULAR TRIGEMINY RIGHT BUNDLE BRANCH BLOCK : Confirmed by: Evelia Kumar MD 21-May-2017 13:50:12
--- NOTE | 2017-05-21 13:51 | EKG REPORT ---
SEVERITY:- ABNORMAL ECG - SINUS TACHYCARDIA RIGHT BUNDLE BRANCH BLOCK : Confirmed by: Evelia Kumar MD 21-May-2017 13:50:08
[2017-05-21] MEDS ORDERED: INSULIN LISPRO 100 UNIT/ML 3 ML VIAL SUBCUT ONE ×2 (16:45→18:30)
[2017-05-21 18:11] LABS: TROPONIN I < 0.012 ng/mL
[2017-05-21] MEDS: ATORVASTATIN CALCIUM 10 MG TABLET NG SCH (21:02)
[2017-05-21] MEDS ORDERED: HUM INSULIN NPH/REG INSULIN HM 100 UNIT/1 ML 3 ML SUBCUT ONE (23:17)
[2017-05-22] MEDS: IPRATROPIUM/ALBUTEROL 0.5-2.5 MG/3 ML AMPUL NEB SCH ×4 (02:12→22:13)
[2017-05-22 05:05] LABS: ABSOLUTE LYMPHOCYTES (AUTO) 0.8 10^3/uL (0.5-4.7); ABSOLUTE MONOCYTES (AUTO) 1.3 10^3/uL (0.1-1.4); ABSOLUTE NEUT (AUTO) 12.1 10^3/uL (1.7-8.2); BASOPHILS % (AUTO) 0.2 % (0-2); EOSINOPHILS % (AUTO) 0.1 % (0-6); HEMATOCRIT 32.7 % (37.9-51.0); HGB HCT DIFFERENCE 0.6; LYMPHOCYTES % (AUTO) 5.7 % (13-45); MEAN CORPUSCULAR HGB CONC 33.9 g/dL (32.0-36.0); MEAN CORPUSCULAR VOLUME 92 fl (80-97); RED BLOOD COUNT 3.58 10^6/uL (4.35-5.55); RED CELL DISTRIBUTION WIDTH 13.5 % (11.5-14.0); WHITE BLOOD COUNT 14.2 10^3/uL (4.0-10.5)
[2017-05-22 05:06] LABS: HEMOGLOBIN 11.1 g/dL (13.5-17.0)
[2017-05-22] MEDS: HEPARIN SOD (PORCINE) 5,000 UNIT/ML 1 ML SYRINGE SUBCUT SCH ×3 (05:07→22:21)
[2017-05-22 05:28] LABS: ANION GAP 11 (5-19); BLOOD UREA NITROGEN 35 mg/dL (7-20); CALCIUM 8.1 mg/dL (8.4-10.2); CARBON DIOXIDE 21 mmol/L (22-30); CHLORIDE 103 mmol/L (98-107); CREATININE RESULT 1.26 mg/dL (0.52-1.25); GLUCOSE 361 mg/dL (75-110); POTASSIUM 4.3 mmol/L (3.6-5.0); SODIUM 134.6 mmol/L (137-145)
[2017-05-22] MEDS: INSULIN REG, HUMAN 100 UNIT/ML 3 ML VIAL (PYX) SUBCUT SCH ×3 (08:25→15:55)
[2017-05-22] MEDS: TIOTROPIUM BROMIDE DPI 5 CAP/KIT (18 MCG/CAP) IH SCH (09:06)
[2017-05-22] MEDS: LEVOFLOXACIN 750 MG/D5W RTU 150 ML IV SCH (09:06)
[2017-05-22] MEDS: METOPROLOL TARTRATE 50 MG TABLET NG SCH ×2 (09:06→22:21)
[2017-05-22] MEDS: ASPIRIN 81 MG TABLET, CHEWABLE NG SCH (09:06)
[2017-05-22] MEDS: CITALOPRAM HYDROBROMIDE 20 MG TABLET PO SCH (09:06)
[2017-05-22] MEDS ORDERED: DEXTROSE 40% GEL 15 GM TUBE X 2 PO PRN (09:08)
[2017-05-22] MEDS ORDERED: DEXTROSE 50%-WATER SYRINGE 25 GM/50 ML DOSE IV PRN (09:08)
[2017-05-22] MEDS ORDERED: GLUCAGON,HUMAN RECOMB 1 MG INJ IM PRN (09:08)
[2017-05-22] MEDS ORDERED: DEXTROSE 50%-WATER SYRINGE 12.5 GM/25 ML DOSE IV PRN (09:08)
[2017-05-22] MEDS ORDERED: DEXTROSE 40% GEL 15 GM TUBE PO PRN (09:08)
[2017-05-22] MEDS ORDERED: CLOPIDOGREL BISULFATE 75 MG TABLET PO ONE (10:23)
--- NOTE | 2017-05-22 10:24 | PDOC PROGRESS REPORT ---
Subjective Progress Note for:: 05/22/17 Subjective:: The patient had no acute events overnight. He states that he has no chest pain or shortness of breath. He was on bilevel Pap and tolerated that well. He was transitioned to nasal cannula for breakfast. Physical Exam Vital Signs: Temp Pulse Resp BP Pulse Ox 97.5 F 95 23 H 127/51 H 98 05/22/17 07:13 05/22/17 07:52 05/22/17 07:52 05/22/17 07:13 05/22/17 07:52 Intake & Output 05/21/17 05/22/17 05/23/17 06:59 06:59 06:59 Intake Total 1787 Output Total 650 Balance 1137 Weight 86.3 kg GENERAL: This is a well-developed well-nourished appearing white male resting on nasal cannula at 5 L/min currently in no acute distress. HEART: Regular rate and rhythm. No murmurs, rubs or gallops. LUNGS: Left lower lobe crackles are auscultated with equal rise and fall of the chest. ABDOMEN: Nondistended EXTREMETIES: No clubbing, cyanosis or edema. 1+ peripheral pulses bilaterally. NEURO: Awake, alert and oriented 3. Although the patient is oriented, it is evident that he is confused and still able to pass the orienting questions. He responds inappropriately to other basic questions such as whether or not he had breakfast. The patient does remember having breakfast despite an empty tray being in front of him and he is just having finished breakfast before I walked in the door. Cranial nerves II through XII are grossly intact. Results Laboratory Results: 05/22/17 03:52 05/22/17 03:52 05/22/17 05/22/17 03:52 03:52 WBC 14.2 H RBC 3.58 L Hgb 11.1 L D Hct 32.7 L MCV 92 MCH 31.0 MCHC 33.9 RDW 13.5 Plt Count 143 L Seg Neutrophils % 85.0 H Lymphocytes % 5.7 L Monocytes % 9.0 Eosinophils % 0.1 Basophils % 0.2 Absolute Neutrophils 12.1 H Absolute Lymphocytes 0.8 Absolute Monocytes 1.3 Absolute Eosinophils 0.0 Absolute Basophils 0.0 Sodium 134.6 L Potassium 4.3 Chloride 103 Carbon Dioxide 21 L Anion Gap 11 BUN 35 H Creatinine 1.26 H Est GFR ( Amer) > 60 Est GFR (Non-Af Amer) 55 L Glucose 361 H Calcium 8.1 L Magnesium 2.0 05/21/17 05/21/17 05/21/17 11:28 11:28 17:19 Creatine Kinase 192 H 405 H CK-MB (CK-2) 6.99 H Troponin I < 0.012 05/21/17 17:19 Creatine Kinase CK-MB (CK-2) 10.90 H Troponin I < 0.012 Impressions: Abdomen X-Ray 05/21/17 00:00 IMPRESSION: Marked gastric distention. Head CT 05/21/17 01:35 IMPRESSION: CHRONIC CHANGES OF ATROPHY AND MICROVASCULAR ISCHEMIA. Old cerebellar infarcts. NO ACUTE PROCESS. Abdomen/Pelvis CT 05/21/17 04:00 IMPRESSION: Bilateral pleural effusions with bilateral pneumonia. No acute intra-abdominal process. KUB X-Ray 05/21/17 04:30 IMPRESSION: Decompression of the stomach after placement of NG tube. Assessment & Plan - Diagnosis (1) Acute respiratory failure with hypoxemia Plan: Respiratory failure secondary to community-acquired pneumonia. The patient is on bilevel Pap at night. He is able to be transitioned to nasal cannula during the day without having to return to BiPAP. Overall he is improved. Hopefully we will be able to wean his O2 down. Continue various inhalers and DuoNeb's. (2) Pneumonia Qualifiers: Pneumonia type: due to unspecified organism Laterality: bilateral Lung location: lower lobe of lung Qualified Code(s): J18.9 - Pneumonia, unspecified organism Is this a current diagnosis for this admission?: YesPlan: Continue current antibiotics. The patient is currently on Levaquin. Monitor white blood cell count. This went up overnight. This may be a transient finding before he resumes going back down. If it continues to trend upward or if the patient spikes any fevers we will need to add on an additional agent likely vancomycin. (3) Hypoglycemia Is this a current diagnosis for this admission?: YesPlan: Resolved. Continue to monitor with before meals at bedtime blood glucose checks. (4) Diabetes Plan: The patient presented with hypoglycemia. Now his sugars are running close to 500. He was given 15 units of 7030 overnight along with a dose of regular insulin. I have changed him to Lantus 20 units nightly and added on 5 units before meals of regular insulin along with sliding scale insulin before meals and at bedtime. We will see what his blood sugars do today and adjust accordingly. At home the patient is on an insulin pump and states that his daughter manages that. The patient lives alone I do not know how frequently his daughter comes to monitor his blood sugars. Based on the patient's conversation and obvious mild cognitive impairment, I do have concerns about the patient being on an insulin pump alone. (5) Ileus Is this a current diagnosis for this admission?: YesPlan: Ileus seems to be improved. The patient had 2 incontinent bowel movements overnight. (6) Metabolic encephalopathy Plan: Improved. The patient is currently oriented. However it should be noted that the patient exhibits some level of cognitive impairment that is readily noticeable with basic conversation. (7) Hypertension Plan: Continue home medications metoprolol. (8) Dyslipidemia Plan: Continue atorvastatin. (9) Congestive heart failure Qualifiers: Congestive heart failure chronicity: chronic Plan: Has a history of congestive heart failure. This is likely acute on chronic. That this is likely systolic given that he has bibasilar crackles and no lower extremity edema. Looks as though he is on Plavix at home. I am not clear if the patient has had previous stents for not but he does have a history of [place]. Will give a one-time dose of Lasix. Restart his Plavix. Continue metoprolol. Continue to monitor. - Time Time Spent with patient: 15-24 minutes Anticipated discharge: Home Within: within 48 hours - Inpatient Certification Medical Necessity: Need Close Monitoring Due to Risk of Patient Decompensation
[2017-05-22] MEDS ORDERED: LORAZEPAM 1 MG TABLET PO ONE (11:15)
[2017-05-22] MEDS ORDERED: FUROSEMIDE INJ/PF 20 MG/2 ML SDV IV ONE (11:15)
[2017-05-22] MEDS ORDERED: LISINOPRIL 5 MG TABLET PO ONE (11:30)
[2017-05-22] MEDS: INSULIN LISPRO 100 UNIT/ML 3 ML VIAL SUBCUT PRN ×2 (12:01→15:55)
[2017-05-22] MEDS ORDERED: INSULIN REG, HUMAN 100 UNIT/ML 3 ML VIAL (PYX) SUBCUT ONE (14:00)
[2017-05-22] MEDS: IPRATROPIUM/ALBUTEROL 0.5-2.5 MG/3 ML AMPUL NEB PRN (19:45)
[2017-05-22] MEDS ORDERED: INSULIN GLARGINE,HUM.REC.ANLOG 300 UNIT/3 ML INSULN.PEN SUBCUT SCH (22:00)
[2017-05-22] MEDS ORDERED: LORAZEPAM 1 MG TABLET PO SCH (22:00)
[2017-05-22] MEDS: ATORVASTATIN CALCIUM 10 MG TABLET NG SCH (22:21)
[2017-05-22] MEDS ORDERED: LORAZEPAM INJ 2 MG/1 ML VIAL ONE (23:34)
[2017-05-23] MEDS ORDERED: LORAZEPAM INJ 2 MG/1 ML VIAL IV ONE (00:15)
[2017-05-23] MEDS: IPRATROPIUM/ALBUTEROL 0.5-2.5 MG/3 ML AMPUL NEB SCH ×4 (02:34→20:27)
[2017-05-23 05:41] LABS: ABSOLUTE BASOPHILS # (AUTO) 0.1 10^3/uL (0.0-0.2); ABSOLUTE LYMPHOCYTES (AUTO) 0.9 10^3/uL (0.5-4.7); ABSOLUTE MONOCYTES (AUTO) 1.2 10^3/uL (0.1-1.4); ABSOLUTE NEUT (AUTO) 12.3 10^3/uL (1.7-8.2); BASOPHILS % (AUTO) 0.4 % (0-2); EOSINOPHILS % (AUTO) 0.1 % (0-6); HEMATOCRIT 32.5 % (37.9-51.0); HEMOGLOBIN 11.1 g/dL (13.5-17.0); HGB HCT DIFFERENCE 0.8; LYMPHOCYTES % (AUTO) 6.1 % (13-45); MEAN CORPUSCULAR HEMOGLOBIN 31.2 pg (27.0-33.4); MEAN CORPUSCULAR HGB CONC 34.3 g/dL (32.0-36.0); MEAN CORPUSCULAR VOLUME 91 fl (80-97); MONOCYTES % (AUTO) 8.4 % (3-13); RED BLOOD COUNT 3.57 10^6/uL (4.35-5.55); RED CELL DISTRIBUTION WIDTH 13.3 % (11.5-14.0); WHITE BLOOD COUNT 14.4 10^3/uL (4.0-10.5)
[2017-05-23 05:54] LABS: ANION GAP 11 (5-19); BLOOD UREA NITROGEN 33 mg/dL (7-20); CALCIUM 8.7 mg/dL (8.4-10.2); CARBON DIOXIDE 21 mmol/L (22-30); CHLORIDE 103 mmol/L (98-107); CREATININE RESULT 1.06 mg/dL (0.52-1.25); GLUCOSE 389 mg/dL (75-110)
[2017-05-23] MEDS: HEPARIN SOD (PORCINE) 5,000 UNIT/ML 1 ML SYRINGE SUBCUT SCH ×3 (06:32→22:06)
[2017-05-23] MEDS: INSULIN REG, HUMAN 100 UNIT/ML 3 ML VIAL (PYX) SUBCUT SCH (08:43)
[2017-05-23] MEDS: INSULIN LISPRO 100 UNIT/ML 3 ML VIAL SUBCUT PRN ×3 (08:44→22:18)
[2017-05-23] MEDS ORDERED: LORAZEPAM INJ 2 MG/1 ML VIAL IV PRN (09:37)
[2017-05-23] MEDS: CITALOPRAM HYDROBROMIDE 20 MG TABLET PO SCH (09:59)
[2017-05-23] MEDS: ASPIRIN 81 MG TABLET, CHEWABLE NG SCH (09:59)
[2017-05-23] MEDS ORDERED: (PENDING PHARMACY ID) (Citalopram Hydrobromide [Celexa 40 Mg Tablet] 40 MG) PO SCH (10:00)
[2017-05-23] MEDS: CLOPIDOGREL BISULFATE 75 MG TABLET PO SCH (10:00)
[2017-05-23] MEDS: LEVOFLOXACIN 750 MG/D5W RTU 150 ML IV SCH (10:00)
[2017-05-23] MEDS ORDERED: (PENDING PHARMACY ID) (Lisinopril [Zestril] 2.5 MG) PO SCH (10:00)
[2017-05-23] MEDS: LISINOPRIL 5 MG TABLET PO SCH (10:02)
[2017-05-23] MEDS: METOPROLOL TARTRATE 50 MG TABLET NG SCH ×2 (10:04→22:07)
--- NOTE | 2017-05-23 10:22 | PDOC PROGRESS REPORT ---
Subjective Progress Note for:: 05/23/17 Subjective:: reason for visit: f/u pneumonia, ams, hypoglycemia hospital course: per other's notes - "SENTHIL WALDEN JR is a 81 year old male with a past medical history of diabetes, depression, anxiety, COPD, diastolic heart failure and coronary artery disease who would been in his usual state of health until approximately 4 hours prior to being found by caregiver on the floor, cold, clammy and unresponsive. Blood sugar was found to be 36 EMS arrived administering IV dextrose and brought to the emergency room for evaluation. Family members at bedside verify he is not mentating at baseline. His initial workup is unremarkable but develops nausea with vomiting and abdominal distention. An abdominal series was obtained showing market gastric distention, an NG tube was placed, CT abdomen however is unremarkable for intra- abdominal process however shows bilateral pneumonia with small effusions. He started on BiPAP, empiric antibiotics and referred to the hospitalist for admission. Patient is unable to provide history. Family members are no longer at bedside." his respiratory status seems to have stabilized but his mentation continues to wax and wane with behavior disturbances most notable at night requiring intermittent ativan to keep him calm and safe. he remains on BiPAP, an ABG at presentation shows hypercapneic and hypoxic resp failure improved with NiPPV, review of the old record shows a similar pattern in the past. he received a dose of ativan around 0100 this morning and remains somnolent and unable to participate in his exam. ROS: unobtainable due to his mental state Physical Exam Vital Signs: Temp Pulse Resp BP Pulse Ox 98.4 F 87 20 141/52 H 96 05/23/17 07:39 05/23/17 07:39 05/23/17 07:39 05/23/17 07:39 05/23/17 07:39 Intake & Output 05/22/17 05/23/17 05/24/17 06:59 06:59 06:59 Intake Total 1787 1330 Output Total 650 975 Balance 1137 355 Weight 86.3 kg General appearance: PRESENT: no acute distress, well-developed, well-nourished Head exam: PRESENT: atraumatic, normocephalic Mouth exam: PRESENT: dry mucosa, neck supple, other - BIPAP in place Respiratory exam: PRESENT: crackles, decreased breath sounds - rt base. ABSENT : accessory muscle use Cardiovascular exam: PRESENT: RRR. ABSENT: systolic murmur Pulses: PRESENT: normal radial pulses, normal dorsalis pedis pul GI/Abdominal exam: PRESENT: normal bowel sounds, soft. ABSENT: guarding Extremities exam: PRESENT: pedal edema - trace Musculoskeletal exam: PRESENT: other - muscle tone normal Neurological exam: PRESENT: altered, reflexes normal Skin exam: PRESENT: dry, warm Results Laboratory Results: 05/23/17 04:24 05/23/17 04:24 05/23/17 05/23/17 04:24 04:24 WBC 14.4 H RBC 3.57 L Hgb 11.1 L Hct 32.5 L MCV 91 MCH 31.2 MCHC 34.3 RDW 13.3 Plt Count 147 L Seg Neutrophils % 85.0 H Lymphocytes % 6.1 L Monocytes % 8.4 Eosinophils % 0.1 Basophils % 0.4 Absolute Neutrophils 12.3 H Absolute Lymphocytes 0.9 Absolute Monocytes 1.2 Absolute Eosinophils 0.0 Absolute Basophils 0.1 Sodium 135.0 L Potassium 5.0 Chloride 103 Carbon Dioxide 21 L Anion Gap 11 BUN 33 H Creatinine 1.06 Est GFR ( Amer) > 60 Est GFR (Non-Af Amer) > 60 Glucose 389 H Calcium 8.7 Magnesium 2.0 05/21/17 05/21/17 05/21/17 11:28 11:28 17:19 Creatine Kinase 192 H 405 H CK-MB (CK-2) 6.99 H Troponin I < 0.012 05/21/17 17:19 Creatine Kinase CK-MB (CK-2) 10.90 H Troponin I < 0.012 Impressions: Abdomen X-Ray 05/21/17 00:00 IMPRESSION: Marked gastric distention. Head CT 05/21/17 01:35 IMPRESSION: CHRONIC CHANGES OF ATROPHY AND MICROVASCULAR ISCHEMIA. Old cerebellar infarcts. NO ACUTE PROCESS. Abdomen/Pelvis CT 05/21/17 04:00 IMPRESSION: Bilateral pleural effusions with bilateral pneumonia. No acute intra-abdominal process. KUB X-Ray 05/21/17 04:30 IMPRESSION: Decompression of the stomach after placement of NG tube. Status: Image reviewed by me - agree with rads Assessment & Plan - Diagnosis (1) Diabetes Qualifiers: Diabetes mellitus type: type 2 Diabetes mellitus complication status: with unspecified complications Diabetes mellitus fpc insulin use: with rodent exterminator use Qualified Code(s): E11.8 - Type 2 diabetes mellitus with unspecified complications; Z79.4 - shelter (current) use of insulin Is this a current diagnosis for this admission?: YesPlan: insulin pump removed due to hypoglycemia at presentation now running a bit high , will increase his basal insulin and continue SSI (2) Hypoglycemia Is this a current diagnosis for this admission?: YesPlan: no recurrence; as above (3) Metabolic encephalopathy Is this a current diagnosis for this admission?: YesPlan: improved but not back to baseline; difficult to state how long the effects of the hypoglycemia might linger further complicated by the hypercapnea present on admission. (4) Pneumonia Qualifiers: Pneumonia type: due to unspecified organism Laterality: bilateral Lung location: lower lobe of lung Qualified Code(s): J18.9 - Pneumonia, unspecified organism Is this a current diagnosis for this admission?: YesPlan: continue levaquin, nebs, O2 and NiPPV as needed (5) Acute respiratory failure with hypoxia and hypercapnia Is this a current diagnosis for this admission?: YesPlan: pulmonary toilet as his mental state will permit, continue intermittent and nocturnal BIPAP as he will tolerate unclear at this time whether he uses home o2 or bipap, will need to clarify with family - Time Time Spent with patient: 35 or more minutes Medications reviewed and adjusted accordingly: Yes
[2017-05-23] MEDS: TIOTROPIUM BROMIDE DPI 5 CAP/KIT (18 MCG/CAP) IH SCH (10:27)
[2017-05-23] MEDS: IPRATROPIUM/ALBUTEROL 0.5-2.5 MG/3 ML AMPUL NEB PRN (20:22)
[2017-05-23] MEDS ORDERED: INSULIN GLARGINE,HUM.REC.ANLOG 300 UNIT/3 ML INSULN.PEN SUBCUT SCH (22:00)
[2017-05-23] MEDS: ATORVASTATIN CALCIUM 10 MG TABLET NG SCH (22:07)
[2017-05-24] MEDS: IPRATROPIUM/ALBUTEROL 0.5-2.5 MG/3 ML AMPUL NEB SCH ×4 (02:14→20:06)
[2017-05-24 05:40] LABS: ABSOLUTE EOSINOPHILS # (AUTO) 0.3 10^3/uL (0.0-0.6); BASOPHILS % (AUTO) 0.4 % (0-2); EOSINOPHILS % (AUTO) 3.2 % (0-6); HEMATOCRIT 32.7 % (37.9-51.0); HEMOGLOBIN 11.3 g/dL (13.5-17.0); HGB HCT DIFFERENCE 1.2; LYMPHOCYTES % (AUTO) 9.6 % (13-45); MEAN CORPUSCULAR HEMOGLOBIN 31.4 pg (27.0-33.4); MEAN CORPUSCULAR HGB CONC 34.6 g/dL (32.0-36.0); MEAN CORPUSCULAR VOLUME 91 fl (80-97); MONOCYTES % (AUTO) 9.4 % (3-13); RED CELL DISTRIBUTION WIDTH 13.4 % (11.5-14.0); SEGMENTED NEUTROPHILS % (AUTO) 77.4 % (42-78); WHITE BLOOD COUNT 10.4 10^3/uL (4.0-10.5)
[2017-05-24] MEDS: HEPARIN SOD (PORCINE) 5,000 UNIT/ML 1 ML SYRINGE SUBCUT SCH ×3 (05:48→22:28)
[2017-05-24 05:58] LABS: ANION GAP 9 (5-19); BLOOD UREA NITROGEN 27 mg/dL (7-20); CARBON DIOXIDE 25 mmol/L (22-30); CHLORIDE 105 mmol/L (98-107); CREATININE RESULT 0.93 mg/dL (0.52-1.25); GLUCOSE 250 mg/dL (75-110); SODIUM 138.8 mmol/L (137-145)
[2017-05-24] MEDS: INSULIN LISPRO 100 UNIT/ML 3 ML VIAL SUBCUT PRN ×4 (08:37→22:34)
[2017-05-24] MEDS: CLOPIDOGREL BISULFATE 75 MG TABLET PO SCH (10:33)
[2017-05-24] MEDS: METOPROLOL TARTRATE 50 MG TABLET NG SCH ×2 (10:33→22:27)
[2017-05-24] MEDS: LEVOFLOXACIN 750 MG/D5W RTU 150 ML IV SCH (10:33)
[2017-05-24] MEDS: LISINOPRIL 5 MG TABLET PO SCH (10:33)
[2017-05-24] MEDS: CITALOPRAM HYDROBROMIDE 20 MG TABLET PO SCH (10:33)
[2017-05-24] MEDS: ASPIRIN 81 MG TABLET, CHEWABLE NG SCH (10:33)
--- NOTE | 2017-05-24 11:40 | PDOC PROGRESS REPORT ---
Subjective Progress Note for:: 05/24/17 Subjective:: reason for visit: f/u pneumonia, ams, hypoglycemia hospital course: per other's notes - "SENTHIL WALDEN JR is a 81 year old male with a past medical history of diabetes, depression, anxiety, COPD, diastolic heart failure and coronary artery disease who would been in his usual state of health until approximately 4 hours prior to being found by caregiver on the floor, cold, clammy and unresponsive. Blood sugar was found to be 36 EMS arrived administering IV dextrose and brought to the emergency room for evaluation. Family members at bedside verify he is not mentating at baseline. His initial workup is unremarkable but develops nausea with vomiting and abdominal distention. An abdominal series was obtained showing market gastric distention, an NG tube was placed, CT abdomen however is unremarkable for intra- abdominal process however shows bilateral pneumonia with small effusions. He started on BiPAP, empiric antibiotics and referred to the hospitalist for admission. Patient is unable to provide history. Family members are no longer at bedside." his respiratory status seems to have stabilized but his mentation continues to wax and wane with behavior disturbances most notable at night requiring intermittent ativan to keep him calm and safe. he remains on BiPAP at night, an ABG at presentation shows hypercapneic and hypoxic resp failure improved with NiPPV, review of the old record shows a similar pattern in the past. he is much more interactive with me this morning, very emotionally labile crying at the thought of lying helpless on the floor at home and fearful of dying. he knows he is in the hospital but cannot remember specifics. he is calm for the most part and participates with PT and nursing care. he denies chest pain, fever/chills, n/v/d. ROS: all systems reviewed, see above, remaining systems negative though his mentation is such that reliability is still suspect Physical Exam Vital Signs: Temp Pulse Resp BP Pulse Ox 99.0 F 82 18 128/63 H 97 05/24/17 07:19 05/24/17 07:47 05/24/17 07:47 05/24/17 07:19 05/24/17 07:47 Intake & Output 05/23/17 05/24/17 05/25/17 06:59 06:59 06:59 Intake Total 1330 745 Output Total 975 1000 Balance 355 -255 Weight 86.5 kg General appearance: PRESENT: no acute distress, well-developed, well-nourished Head exam: PRESENT: atraumatic, normocephalic Mouth exam: PRESENT: moist mucosa, neck supple, Respiratory exam: PRESENT: crackles, decreased breath sounds - rt base. ABSENT : accessory muscle use Cardiovascular exam: PRESENT: RRR. ABSENT: systolic murmur Pulses: PRESENT: normal radial pulses, normal dorsalis pedis pul GI/Abdominal exam: PRESENT: normal bowel sounds, soft. ABSENT: guarding Extremities exam: PRESENT: pedal edema - trace Musculoskeletal exam: PRESENT: other - muscle tone normal, moves all 4 though strength is 4/5 at best in major groups, follows commands Neurological exam: PRESENT: alert and awake, oriented to person and place, reflexes normal Skin exam: PRESENT: dry, warm Results Laboratory Results: 05/24/17 04:51 05/24/17 04:51 05/24/17 05/24/17 04:51 04:51 WBC 10.4 RBC 3.60 L Hgb 11.3 L Hct 32.7 L MCV 91 MCH 31.4 MCHC 34.6 RDW 13.4 Plt Count 162 Seg Neutrophils % 77.4 Lymphocytes % 9.6 L Monocytes % 9.4 Eosinophils % 3.2 Basophils % 0.4 Absolute Neutrophils 8.0 Absolute Lymphocytes 1.0 Absolute Monocytes 1.0 Absolute Eosinophils 0.3 Absolute Basophils 0.0 Sodium 138.8 Potassium 4.0 Chloride 105 Carbon Dioxide 25 Anion Gap 9 BUN 27 H Creatinine 0.93 Est GFR ( Amer) > 60 Est GFR (Non-Af Amer) > 60 Glucose 250 H Calcium 9.0 05/21/17 05/21/17 05/21/17 11:28 11:28 17:19 Creatine Kinase 192 H 405 H CK-MB (CK-2) 6.99 H Troponin I < 0.012 05/21/17 17:19 Creatine Kinase CK-MB (CK-2) 10.90 H Troponin I < 0.012 Assessment & Plan - Diagnosis (1) Metabolic encephalopathy Is this a current diagnosis for this admission?: YesPlan: improved but not back to baseline; waxing and waning but overall trend is for the better. difficult to state how long the effects of the hypoglycemia might linger, further complicated by the hypercapnea present on admission. (2) Hypoglycemia Is this a current diagnosis for this admission?: YesPlan: resolved with d/c of insulin pump. no recurrence; cover with SSI (3) Pneumonia Qualifiers: Pneumonia type: due to unspecified organism Laterality: bilateral Lung location: lower lobe of lung Qualified Code(s): J18.9 - Pneumonia, unspecified organism Is this a current diagnosis for this admission?: YesPlan: improved but not back to baseline; continue levaquin, nebs, O2 and NiPPV as needed, particularly at night (4) Acute respiratory failure with hypoxia and hypercapnia Is this a current diagnosis for this admission?: YesPlan: pulmonary toilet as his mental state will permit, continue intermittent and nocturnal BIPAP as he will tolerate unclear at this time whether he uses home o2 or bipap, will need to clarify with family (5) Diabetes Qualifiers: Diabetes mellitus type: type 2 Diabetes mellitus complication status: with unspecified complications Diabetes mellitus half-way insulin use: with half-way use Qualified Code(s): E11.8 - Type 2 diabetes mellitus with unspecified complications; Z79.4 - senior living (current) use of insulin Is this a current diagnosis for this admission?: YesPlan: insulin pump removed due to hypoglycemia at presentation now running a bit high , will increase his basal insulin and continue SSI - Time Time Spent with patient: 25-34 minutes Medications reviewed and adjusted accordingly: Yes Anticipated discharge: Home with Homehealth Within: within 72 hours
[2017-05-24] MEDS: TIOTROPIUM BROMIDE DPI 5 CAP/KIT (18 MCG/CAP) IH SCH (14:19)
[2017-05-24] MEDS: ATORVASTATIN CALCIUM 10 MG TABLET NG SCH (22:28)
[2017-05-24] MEDS: INSULIN GLARGINE,HUM.REC.ANLOG 300 UNIT/3 ML INSULN.PEN SUBCUT SCH (22:35)
[2017-05-25] MEDS: IPRATROPIUM/ALBUTEROL 0.5-2.5 MG/3 ML AMPUL NEB SCH ×4 (02:08→19:39)
[2017-05-25] MEDS: HEPARIN SOD (PORCINE) 5,000 UNIT/ML 1 ML SYRINGE SUBCUT SCH ×3 (05:24→21:11)
[2017-05-25] MEDS: INSULIN LISPRO 100 UNIT/ML 3 ML VIAL SUBCUT PRN ×3 (07:52→21:29)
[2017-05-25] MEDS: ASPIRIN 81 MG TABLET, CHEWABLE NG SCH (09:34)
[2017-05-25] MEDS: CLOPIDOGREL BISULFATE 75 MG TABLET PO SCH (09:34)
[2017-05-25] MEDS: LISINOPRIL 5 MG TABLET PO SCH (09:34)
[2017-05-25] MEDS: CITALOPRAM HYDROBROMIDE 20 MG TABLET PO SCH (09:34)
[2017-05-25] MEDS: LEVOFLOXACIN 750 MG TABLET PO SCH (09:34)
[2017-05-25] MEDS: METOPROLOL TARTRATE 50 MG TABLET NG SCH ×2 (09:35→21:11)
[2017-05-25] MEDS: TIOTROPIUM BROMIDE DPI 5 CAP/KIT (18 MCG/CAP) IH SCH (09:35)
--- NOTE | 2017-05-25 10:26 | PDOC PROGRESS REPORT ---
Subjective Progress Note for:: 05/25/17 Subjective:: reason for visit: f/u pneumonia, ams, hypoglycemia hospital course: per other's notes - "SENTHIL WALDEN JR is a 81 year old male with a past medical history of diabetes, depression, anxiety, COPD, diastolic heart failure and coronary artery disease who would been in his usual state of health until approximately 4 hours prior to being found by caregiver on the floor, cold, clammy and unresponsive. Blood sugar was found to be 36 EMS arrived administering IV dextrose and brought to the emergency room for evaluation. Family members at bedside verify he is not mentating at baseline. His initial workup is unremarkable but develops nausea with vomiting and abdominal distention. An abdominal series was obtained showing market gastric distention, an NG tube was placed, CT abdomen however is unremarkable for intra- abdominal process however shows bilateral pneumonia with small effusions. He started on BiPAP, empiric antibiotics and referred to the hospitalist for admission. Patient is unable to provide history. Family members are no longer at bedside." his respiratory status seems to have stabilized but his mentation continues to wax and wane with behavior disturbances most notable at night requiring intermittent ativan to keep him calm and safe. An ABG at presentation shows hypercapneic and hypoxic resp failure improved with NiPPV, review of the old record shows a similar pattern in the past. he remains more interactive with me this morning, not as emotionally labile. he remembers me from yesterday as his doctor at [facility] but still cannot remember specifics and still gets confused at times. he is calm for the most part and participates with PT and nursing care. he denies chest pain, fever /chills, n/v/d. Review of telemetry reveals frequent PVCs, occasional bigeminy but mostly artifact and no clinically significant arrhytthmia. ROS: all systems reviewed, see above, remaining systems negative though his mentation is such that reliability is still suspect Physical Exam Vital Signs: Temp Pulse Resp BP Pulse Ox 99.2 F 104 H 18 139/68 H 96 05/25/17 03:29 05/25/17 08:07 05/25/17 08:07 05/25/17 03:29 05/25/17 08:07 Intake & Output 05/24/17 05/25/17 05/26/17 06:59 06:59 06:59 Intake Total 745 755 Output Total 1000 475 Balance -255 280 Weight 86.5 kg 81.6 kg General appearance: PRESENT: no acute distress, well-developed, well-nourished Head exam: PRESENT: atraumatic, normocephalic Mouth exam: PRESENT: moist mucosa, neck supple, Respiratory exam: PRESENT: coarse crackles bilat and decreased breath sounds - rt base. ABSENT: accessory muscle use Cardiovascular exam: PRESENT: RRR. ABSENT: systolic murmur Pulses: PRESENT: normal radial pulses, normal dorsalis pedis pul GI/Abdominal exam: PRESENT: normal bowel sounds, soft. ABSENT: guarding Extremities exam: PRESENT: pedal edema - trace Musculoskeletal exam: PRESENT: other - muscle tone normal, moves all 4 though strength is 4/5 at best in major groups, follows commands Neurological exam: PRESENT: alert and awake, oriented to person and place, reflexes normal Skin exam: PRESENT: dry, warm Results Laboratory Results: 05/24/17 04:51 05/24/17 04:51 05/21/17 05/21/17 05/21/17 11:28 11:28 17:19 Creatine Kinase 192 H 405 H CK-MB (CK-2) 6.99 H Troponin I < 0.012 05/21/17 17:19 Creatine Kinase CK-MB (CK-2) 10.90 H Troponin I < 0.012 Assessment & Plan - Diagnosis (1) Metabolic encephalopathy Is this a current diagnosis for this admission?: YesPlan: improved but not back to baseline; waxing and waning but overall trend continues for the better. difficult to state how long the effects of the hypoglycemia might linger, further complicated by the hypercapnea and hypoxia present on admission. (2) Hypoglycemia Is this a current diagnosis for this admission?: YesPlan: resolved with d/c of insulin pump and treatment. no recurrence; cover with basal/SSI (3) Pneumonia Qualifiers: Pneumonia type: due to unspecified organism Laterality: bilateral Lung location: lower lobe of lung Qualified Code(s): J18.9 - Pneumonia, unspecified organism Is this a current diagnosis for this admission?: YesPlan: improved but not back to baseline; continue levaquin, nebs, O2 and NiPPV as needed, particularly at night (4) Acute respiratory failure with hypoxia and hypercapnia Is this a current diagnosis for this admission?: YesPlan: pulmonary toilet as his mental state will permit, continue intermittent and nocturnal BIPAP as he will tolerate unclear at this time whether he uses home o2 or bipap, will need to clarify with family and continue attemtps to wean. f/u cxr in am (5) Diabetes Qualifiers: Diabetes mellitus type: type 2 Diabetes mellitus complication status: with unspecified complications Diabetes mellitus skilled nursing insulin use: with long term acute care registered nurse use Qualified Code(s): E11.8 - Type 2 diabetes mellitus with unspecified complications; Z79.4 - [facility] (current) use of insulin Is this a current diagnosis for this admission?: Yes - Time Time Spent with patient: 25-34 minutes Medications reviewed and adjusted accordingly: Yes - Plan Summary Plan Summary: ok to downgrade, condition continues to improve. I suspect he would benefit from a short course of rehab in a monitored setting before returning home to independent living, social science manager already involved.
[2017-05-25] MEDS ORDERED: IPRATROPIUM/ALBUTEROL 0.5-2.5 MG/3 ML AMPUL NEB PRN (12:20)
[2017-05-25] MEDS: ATORVASTATIN CALCIUM 10 MG TABLET NG SCH (21:10)
[2017-05-25] MEDS: INSULIN GLARGINE,HUM.REC.ANLOG 300 UNIT/3 ML INSULN.PEN SUBCUT SCH (21:23)
[2017-05-25] MEDS ORDERED: INSULIN LISPRO 100 UNIT/ML 3 ML VIAL SUBCUT ONE (22:30)
[2017-05-26] MEDS: IPRATROPIUM/ALBUTEROL 0.5-2.5 MG/3 ML AMPUL NEB SCH ×4 (02:23→20:30)
[2017-05-26] MEDS: HEPARIN SOD (PORCINE) 5,000 UNIT/ML 1 ML SYRINGE SUBCUT SCH ×3 (05:24→21:51)
[2017-05-26 05:26] LABS: ABSOLUTE EOSINOPHILS # (AUTO) 0.5 10^3/uL (0.0-0.6); ABSOLUTE LYMPHOCYTES (AUTO) 1.2 10^3/uL (0.5-4.7); ABSOLUTE MONOCYTES (AUTO) 1.3 10^3/uL (0.1-1.4); ABSOLUTE NEUT (AUTO) 5.4 10^3/uL (1.7-8.2); BASOPHILS % (AUTO) 0.6 % (0-2); EOSINOPHILS % (AUTO) 5.7 % (0-6); HEMATOCRIT 35.7 % (37.9-51.0); HEMOGLOBIN 12.4 g/dL (13.5-17.0); HGB HCT DIFFERENCE 1.5; LYMPHOCYTES % (AUTO) 14.4 % (13-45); MEAN CORPUSCULAR HEMOGLOBIN 31.3 pg (27.0-33.4); MEAN CORPUSCULAR HGB CONC 34.7 g/dL (32.0-36.0); MEAN CORPUSCULAR VOLUME 90 fl (80-97); MONOCYTES % (AUTO) 15.5 % (3-13); RED BLOOD COUNT 3.96 10^6/uL (4.35-5.55); RED CELL DISTRIBUTION WIDTH 13.1 % (11.5-14.0); SEGMENTED NEUTROPHILS % (AUTO) 63.8 % (42-78); WHITE BLOOD COUNT 8.5 10^3/uL (4.0-10.5)
[2017-05-26 05:39] LABS: ANION GAP 10 (5-19); BLOOD UREA NITROGEN 23 mg/dL (7-20); CALCIUM 9.1 mg/dL (8.4-10.2); CARBON DIOXIDE 27 mmol/L (22-30); CHLORIDE 103 mmol/L (98-107); CREATININE RESULT 0.96 mg/dL (0.52-1.25); GLUCOSE 65 mg/dL (75-110); POTASSIUM 4.1 mmol/L (3.6-5.0); SODIUM 140.4 mmol/L (137-145)
--- NOTE | 2017-05-26 08:23 | RADIOLOGY REPORT (SQ) ---
EXAM DESCRIPTION: CHEST SINGLE VIEW COMPLETED DATE/TIME: 05/26/2017 7:46 am REASON FOR STUDY: pneumonia COMPARISON: 05/21/2017. EXAM PARAMETERS: NUMBER OF VIEWS: One view. TECHNIQUE: Single frontal radiographic view of the chest acquired. RADIATION DOSE: NA LIMITATIONS: None. FINDINGS: LUNGS AND PLEURA: Faint basilar density slightly increased. No pleural effusion. No pneu mothorax. MEDIASTINUM AND HILAR STRUCTURES: No masses. Contour normal. HEART AND VASCULAR STRUCTURES: Heart upper limits of normal in size. Normal vasculature. BONES: No acute findings. HARDWARE: None in the chest. OTHER: No other significant finding. IMPRESSION: SLIGHT INCREASE IN BASILAR ATELECTASIS VERSUS INFILTRATE. TECHNICAL DOCUMENTATION: JOB ID: [id number]
--- NOTE | 2017-05-26 10:27 | PDOC PROGRESS REPORT ---
Subjective Progress Note for:: 05/26/17 Subjective:: reason for visit: f/u pneumonia, ams, hypoglycemia hospital course: per other's notes - "SENTHIL WALDEN JR is a 81 year old male with a past medical history of diabetes, depression, anxiety, COPD, diastolic heart failure and coronary artery disease who would been in his usual state of health until approximately 4 hours prior to being found by caregiver on the floor, cold, clammy and unresponsive. Blood sugar was found to be 36 EMS arrived administering IV dextrose and brought to the emergency room for evaluation. Family members at bedside verify he is not mentating at baseline. His initial workup is unremarkable but develops nausea with vomiting and abdominal distention. An abdominal series was obtained showing market gastric distention, an NG tube was placed, CT abdomen however is unremarkable for intra- abdominal process however shows bilateral pneumonia with small effusions. He started on BiPAP, empiric antibiotics and referred to the hospitalist for admission. Patient is unable to provide history. Family members are no longer at bedside." An ABG at presentation shows hypercapneic and hypoxic resp failure improved with NiPPV, review of the old record shows a similar pattern in the past. his respiratory status seems to have stabilized but his mentation continues to wax and wane with behavior disturbances most notable at night requiring intermittent ativan to keep him calm and safe. This happened again last night and since the ativan he is somnolent and slow to respond, a little more confused for me this morning. he is calm for the most part and participates with PT and nursing care. he denies chest pain, fever/chills, n/v/d. Review of telemetry reveals frequent PVCs, occasional bigeminy but mostly artifact and no clinically significant arrhytthmia. ROS: all systems reviewed, see above, remaining systems negative though his mentation is such that reliability remains suspect Physical Exam Vital Signs: Temp Pulse Resp BP Pulse Ox 97.6 F 79 16 131/57 H 91 L 05/26/17 08:00 05/26/17 08:15 05/26/17 08:15 05/26/17 08:00 05/26/17 08:15 Intake & Output 05/25/17 05/26/17 05/27/17 06:59 06:59 06:59 Intake Total 755 1198 Output Total 965 425 Balance 280 773 Weight 81.6 kg 81.2 kg General appearance: PRESENT: no acute distress, well-developed, well-nourished, lethargic Head exam: PRESENT: atraumatic, normocephalic Mouth exam: PRESENT: moist mucosa, neck supple, Respiratory exam: PRESENT: coarse crackles bilat and decreased breath sounds - rt base. ABSENT: accessory muscle use Cardiovascular exam: PRESENT: RRR. ABSENT: systolic murmur Pulses: PRESENT: normal radial pulses, normal dorsalis pedis pul GI/Abdominal exam: PRESENT: normal bowel sounds, soft. ABSENT: guarding Extremities exam: PRESENT: pedal edema - trace Musculoskeletal exam: PRESENT: other - muscle tone normal, moves all 4 though strength is 4/5 at best in major groups, follows only simple commands Neurological exam: PRESENT: sluggish, oriented to person only, reflexes normal Skin exam: PRESENT: dry, warm Results Laboratory Results: 05/26/17 04:44 05/26/17 04:44 05/26/17 05/26/17 04:44 04:44 WBC 8.5 RBC 3.96 L Hgb 12.4 L Hct 35.7 L MCV 90 MCH 31.3 MCHC 34.7 RDW 13.1 Plt Count 206 Seg Neutrophils % 63.8 Lymphocytes % 14.4 Monocytes % 15.5 H Eosinophils % 5.7 Basophils % 0.6 Absolute Neutrophils 5.4 Absolute Lymphocytes 1.2 Absolute Monocytes 1.3 Absolute Eosinophils 0.5 Absolute Basophils 0.0 Sodium 140.4 Potassium 4.1 Chloride 103 Carbon Dioxide 27 Anion Gap 10 BUN 23 H Creatinine 0.96 Est GFR ( Amer) > 60 Est GFR (Non-Af Amer) > 60 Glucose 65 L Calcium 9.1 05/21/17 05/21/17 05/21/17 11:28 11:28 17:19 Creatine Kinase 192 H 405 H CK-MB (CK-2) 6.99 H Troponin I < 0.012 05/21/17 17:19 Creatine Kinase CK-MB (CK-2) 10.90 H Troponin I < 0.012 Impressions: Chest X-Ray 05/26/17 07:00 IMPRESSION: SLIGHT INCREASE IN BASILAR ATELECTASIS VERSUS INFILTRATE. Status: Imported from PACS Assessment & Plan - Diagnosis (1) Metabolic encephalopathy Is this a current diagnosis for this admission?: YesPlan: improved but not back to baseline; waxing and waning but overall trend continues for the better until he owns and requires anxiolytic that sets him back. difficult to state how long the effects of the hypoglycemia might linger, further complicated by the hypercapnea and hypoxia present on admission. (2) Hypoglycemia Is this a current diagnosis for this admission?: YesPlan: resolved with d/c of insulin pump and treatment. no recurrence; cover with basal/SSI (3) Pneumonia Qualifiers: Pneumonia type: due to unspecified organism Laterality: bilateral Lung location: lower lobe of lung Qualified Code(s): J18.9 - Pneumonia, unspecified organism Is this a current diagnosis for this admission?: YesPlan: improved but not back to baseline; continue levaquin, nebs, O2 and NiPPV as needed, particularly at night (4) Acute respiratory failure with hypoxia and hypercapnia Is this a current diagnosis for this admission?: YesPlan: pulmonary toilet as his mental state will permit, continue intermittent and nocturnal BIPAP as he will tolerate unclear at this time whether he uses home o2 or bipap, will need to clarify with family and continue attemtps to wean. f/u cxr looks no worse, about the same (5) Diabetes Qualifiers: Diabetes mellitus type: type 2 Diabetes mellitus complication status: with unspecified complications Diabetes mellitus joint terminal attack controller insulin use: with longterm use Qualified Code(s): E11.8 - Type 2 diabetes mellitus with unspecified complications; Z79.4 - [facility] (current) use of insulin Is this a current diagnosis for this admission?: Yes - Time Time Spent with patient: 15-24 minutes Medications reviewed and adjusted accordingly: Yes Anticipated discharge: SNF - seems like the best for him in the short term as it remains difficult to predict when his mentation will clear enough to return home to independent living
[2017-05-26] MEDS: CITALOPRAM HYDROBROMIDE 20 MG TABLET NG SCH (11:57)
[2017-05-26] MEDS: METOPROLOL TARTRATE 50 MG TABLET PO SCH ×2 (11:58→21:56)
[2017-05-26] MEDS: CLOPIDOGREL BISULFATE 75 MG TABLET PO SCH (11:58)
[2017-05-26] MEDS: ASPIRIN 81 MG TABLET, CHEWABLE NG SCH (11:58)
[2017-05-26] MEDS: LEVOFLOXACIN 750 MG TABLET PO SCH (11:59)
[2017-05-26] MEDS: LISINOPRIL 5 MG TABLET PO SCH (11:59)
[2017-05-26] MEDS: TIOTROPIUM BROMIDE DPI 5 CAP/KIT (18 MCG/CAP) IH SCH (12:00)
[2017-05-26] MEDS: INSULIN LISPRO 100 UNIT/ML 3 ML VIAL SUBCUT PRN ×3 (12:13→21:53)
[2017-05-26] MEDS ORDERED: INSULIN LISPRO 100 UNIT/ML 3 ML VIAL SUBCUT ONE (17:15)
[2017-05-26] MEDS: ATORVASTATIN CALCIUM 10 MG TABLET NG SCH (21:49)
[2017-05-26] MEDS: INSULIN GLARGINE,HUM.REC.ANLOG 300 UNIT/3 ML INSULN.PEN SUBCUT SCH (21:55)
[2017-05-26] MEDS: LORAZEPAM INJ 2 MG/1 ML VIAL IV SCH (21:57)
[2017-05-27] MEDS: IPRATROPIUM/ALBUTEROL 0.5-2.5 MG/3 ML AMPUL NEB SCH ×4 (02:01→19:47)
[2017-05-27] MEDS: HEPARIN SOD (PORCINE) 5,000 UNIT/ML 1 ML SYRINGE SUBCUT SCH ×3 (05:47→22:00)
[2017-05-27] MEDS: INSULIN LISPRO 100 UNIT/ML 3 ML VIAL SUBCUT PRN ×4 (08:18→22:12)
[2017-05-27] MEDS: LEVOFLOXACIN 750 MG TABLET PO SCH (09:33)
[2017-05-27] MEDS: LISINOPRIL 5 MG TABLET PO SCH (09:33)
[2017-05-27] MEDS: CLOPIDOGREL BISULFATE 75 MG TABLET PO SCH (09:33)
[2017-05-27] MEDS: ASPIRIN 81 MG TABLET, CHEWABLE NG SCH (09:33)
[2017-05-27] MEDS: METOPROLOL TARTRATE 50 MG TABLET PO SCH ×2 (09:34→22:13)
[2017-05-27] MEDS: CITALOPRAM HYDROBROMIDE 20 MG TABLET NG SCH (09:34)
[2017-05-27] MEDS: TIOTROPIUM BROMIDE DPI 5 CAP/KIT (18 MCG/CAP) IH SCH (09:35)
--- NOTE | 2017-05-27 11:05 | PDOC PROGRESS REPORT ---
Subjective Progress Note for:: 05/27/17 Subjective:: reason for visit: f/u pneumonia, ams, hypoglycemia hospital course: per other's notes - "SENTHIL WALDEN JR is a 81 year old male with a past medical history of diabetes, depression, anxiety, COPD, diastolic heart failure and coronary artery disease who would been in his usual state of health until approximately 4 hours prior to being found by caregiver on the floor, cold, clammy and unresponsive. Blood sugar was found to be 36 EMS arrived administering IV dextrose and brought to the emergency room for evaluation. Family members at bedside verify he is not mentating at baseline. His initial workup is unremarkable but develops nausea with vomiting and abdominal distention. An abdominal series was obtained showing market gastric distention, an NG tube was placed, CT abdomen however is unremarkable for intra- abdominal process however shows bilateral pneumonia with small effusions. He started on BiPAP, empiric antibiotics and referred to the hospitalist for admission. Patient is unable to provide history. Family members are no longer at bedside." An ABG at presentation shows hypercapneic and hypoxic resp failure improved with NiPPV, review of the old record shows a similar pattern in the past. Review of telemetry revealed frequent PVCs, occasional bigeminy but mostly artifact and no clinically significant arrhytthmia. his respiratory status seems to have stabilized but his mentation continues to wax and wane with behavior disturbances most notable at night requiring intermittent ativan to keep him calm and safe. he is calm for the most part and participates with PT and nursing care. his son reports progressive short term memory loss rapidly worsening over the last couple of months with wild swings in his emotions but no violent behaviors. ROS: he denies chest pain, fever/chills, n/v/d. all systems reviewed, see above , remaining systems negative though his mentation is such that reliability remains suspect Physical Exam Vital Signs: Temp Pulse Resp BP Pulse Ox 99.2 F 84 16 158/65 H 97 05/27/17 08:11 05/27/17 08:11 05/27/17 08:11 05/27/17 08:11 05/27/17 08:11 Intake & Output 05/26/17 05/27/17 05/28/17 06:59 06:59 06:59 Intake Total 1198 405 Output Total 425 200 Balance 773 205 Weight 81.2 kg 81.1 kg General appearance: PRESENT: no acute distress, well-developed, well-nourished Head exam: PRESENT: atraumatic, normocephalic Mouth exam: PRESENT: moist mucosa, neck supple, Respiratory exam: PRESENT: coarse crackles and decreased breath sounds - rt base. ABSENT: accessory muscle use Cardiovascular exam: PRESENT: RRR. ABSENT: systolic murmur Pulses: PRESENT: normal radial pulses, normal dorsalis pedis pul GI/Abdominal exam: PRESENT: normal bowel sounds, soft. ABSENT: guarding Extremities exam: PRESENT: pedal edema - trace Musculoskeletal exam: PRESENT: other - muscle tone normal, moves all 4 though strength is 4/5 at best in major groups, follows only simple commands Neurological exam: PRESENT: oriented to person only, patella reflexes normal, emotional labile - happy to weeping in the same sentence Skin exam: PRESENT: dry, warm Results Laboratory Results: 05/26/17 04:44 05/26/17 04:44 05/21/17 05/21/17 05/21/17 11:28 11:28 17:19 Creatine Kinase 192 H 405 H CK-MB (CK-2) 6.99 H Troponin I < 0.012 05/21/17 17:19 Creatine Kinase CK-MB (CK-2) 10.90 H Troponin I < 0.012 Assessment & Plan - Diagnosis (1) Pneumonia Qualifiers: Pneumonia type: due to unspecified organism Laterality: bilateral Lung location: lower lobe of lung Qualified Code(s): J18.9 - Pneumonia, unspecified organism Is this a current diagnosis for this admission?: YesPlan: improved but not back to baseline; continue levaquin, nebs, O2 and NiPPV only as needed for apnea or resp distress (2) Acute respiratory failure with hypoxia and hypercapnia Is this a current diagnosis for this admission?: YesPlan: pulmonary toilet as his mental state will permit, continue intermittent and nocturnal BIPAP as he will tolerate unclear at this time whether he uses home o2 or bipap, will need to clarify with family and continue attemtps to wean. f/u cxr looks no worse, about the same (3) Hypoglycemia Is this a current diagnosis for this admission?: YesPlan: resolved with d/c of insulin pump and treatment. no recurrence; cover with basal/SSI (4) Metabolic encephalopathy Is this a current diagnosis for this admission?: Yes (5) Diabetes Qualifiers: Diabetes mellitus type: type 2 Diabetes mellitus complication status: with unspecified complications Diabetes mellitus nursing home insulin use: with lip of shank cutter use Qualified Code(s): E11.8 - Type 2 diabetes mellitus with unspecified complications; Z79.4 - care home (current) use of insulin Is this a current diagnosis for this admission?: Yes (6) Vascular dementia with behavior disturbance Is this a current diagnosis for this admission?: YesPlan: I suspect this is complicating his presentation and may account for it actually , if he is unable to continue to self administer his insulin at home. - Time Time Spent with patient: 25-34 minutes Anticipated discharge: SNF Within: within 48 hours
[2017-05-27] MEDS ORDERED: INSULIN LISPRO 100 UNIT/ML 3 ML VIAL SUBCUT ONE (17:30)
[2017-05-27] MEDS: ATORVASTATIN CALCIUM 10 MG TABLET NG SCH (21:59)
[2017-05-27] MEDS: INSULIN GLARGINE,HUM.REC.ANLOG 300 UNIT/3 ML INSULN.PEN SUBCUT SCH (22:02)
[2017-05-27] MEDS: LORAZEPAM INJ 2 MG/1 ML VIAL IV SCH (22:03)
[2017-05-28] MEDS: IPRATROPIUM/ALBUTEROL 0.5-2.5 MG/3 ML AMPUL NEB SCH ×4 (02:35→20:00)
[2017-05-28] MEDS: HEPARIN SOD (PORCINE) 5,000 UNIT/ML 1 ML SYRINGE SUBCUT SCH ×3 (06:26→21:54)
--- NOTE | 2017-05-28 08:44 | PDOC PROGRESS REPORT ---
Subjective Progress Note for:: 05/28/17 Subjective:: reason for visit: f/u pneumonia, ams, hypoglycemia hospital course: per other's notes - "SENTHIL WALDEN JR is a 81 year old male with a past medical history of diabetes, depression, anxiety, COPD, diastolic heart failure and coronary artery disease who would been in his usual state of health until approximately 4 hours prior to being found by caregiver on the floor, cold, clammy and unresponsive. Blood sugar was found to be 36 EMS arrived administering IV dextrose and brought to the emergency room for evaluation. Family members at bedside verify he is not mentating at baseline. His initial workup is unremarkable but develops nausea with vomiting and abdominal distention. An abdominal series was obtained showing market gastric distention, an NG tube was placed, CT abdomen however is unremarkable for intra- abdominal process however shows bilateral pneumonia with small effusions. He started on BiPAP, empiric antibiotics and referred to the hospitalist for admission. Patient is unable to provide history. Family members are no longer at bedside." An ABG at presentation shows hypercapneic and hypoxic resp failure improved with NiPPV, review of the old record shows a similar pattern in the past. Review of telemetry revealed frequent PVCs, occasional bigeminy but mostly artifact and no clinically significant arrhytthmia. his respiratory status seems to have stabilized. his mentation waxes and wanes with behavior disturbances most notable at night requiring intermittent ativan to keep him calm and safe. he is calm for the most part and participates with PT and nursing care. his son reports progressive short term memory loss rapidly worsening over the last couple of months with wild swings in his emotions but no violent behaviors. ROS: he denies chest pain, fever/chills, n/v/d. all systems reviewed, see above , remaining systems negative though his mentation is such that reliability remains suspect Physical Exam Vital Signs: Temp Pulse Resp BP Pulse Ox 99.7 F 99 16 121/63 94 05/28/17 04:21 05/28/17 04:21 05/28/17 04:21 05/28/17 04:21 05/28/17 04:21 Intake & Output 05/27/17 05/28/17 05/29/17 06:59 06:59 06:59 Intake Total 405 1380 Output Total 200 800 Balance 205 580 Weight 81.1 kg 81 kg General appearance: PRESENT: no acute distress, well-developed, well-nourished Head exam: PRESENT: atraumatic, normocephalic Mouth exam: PRESENT: moist mucosa, neck supple, Respiratory exam: PRESENT: rt base coarse crackles and decreased breath sounds ABSENT: accessory muscle use Cardiovascular exam: PRESENT: RRR. ABSENT: systolic murmur Pulses: PRESENT: normal radial pulses, normal dorsalis pedis pul GI/Abdominal exam: PRESENT: normal bowel sounds, soft. ABSENT: guarding Extremities exam: PRESENT: pedal edema - trace Musculoskeletal exam: PRESENT: other - muscle tone normal, moves all 4 and able to follow commands Skin exam: PRESENT: dry, warm Results Laboratory Results: 05/26/17 04:44 05/26/17 04:44 05/21/17 05/21/17 05/21/17 11:28 11:28 17:19 Creatine Kinase 192 H 405 H CK-MB (CK-2) 6.99 H Troponin I < 0.012 05/21/17 17:19 Creatine Kinase CK-MB (CK-2) 10.90 H Troponin I < 0.012 Assessment & Plan - Diagnosis (1) Pneumonia Qualifiers: Pneumonia type: due to unspecified organism Laterality: bilateral Lung location: lower lobe of lung Qualified Code(s): J18.9 - Pneumonia, unspecified organism Is this a current diagnosis for this admission?: Yes (2) Acute respiratory failure with hypoxia and hypercapnia Is this a current diagnosis for this admission?: Yes (3) Hypoglycemia Is this a current diagnosis for this admission?: Yes (4) Metabolic encephalopathy Is this a current diagnosis for this admission?: Yes (5) Diabetes Qualifiers: Diabetes mellitus type: type 2 Diabetes mellitus complication status: with unspecified complications 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 use Qualified Code(s): E11.8 - Type 2 diabetes mellitus with unspecified complications; Z79.4 - [facility] (current) use of insulin Is this a current diagnosis for this admission?: Yes (6) Vascular dementia with behavior disturbance Is this a current diagnosis for this admission?: Yes - Time Time Spent with patient: 15-24 minutes Anticipated discharge: SNF - Plan Summary Plan Summary: pt has not required NIPPV/BiPAP since 05/24 and weaned down to minimal supplemental O2 indicating he is out of the danger zone and will not routinely need BiPAP or non-invasive positive pressure ventilation going forward. He walked the halls yesterday with assistance marking a continued improvement in his condition. he is having some low BSs during the night or first thing in the morning so will adjust his long acting insulin to daily dosing rather than qhs and monitor for improvement. at this point awaiting placement options but he is medically stable for transfer as soon as bed available, he is NOT safe for discharge to independent living at this time.
[2017-05-28] MEDS: LISINOPRIL 5 MG TABLET PO SCH (10:29)
[2017-05-28] MEDS: LEVOFLOXACIN 750 MG TABLET PO SCH (10:29)
[2017-05-28] MEDS: ASPIRIN 81 MG TABLET, CHEWABLE NG SCH (10:30)
[2017-05-28] MEDS: CLOPIDOGREL BISULFATE 75 MG TABLET PO SCH (10:30)
[2017-05-28] MEDS: METOPROLOL TARTRATE 50 MG TABLET PO SCH ×2 (10:30→21:53)
[2017-05-28] MEDS: CITALOPRAM HYDROBROMIDE 20 MG TABLET NG SCH (10:30)
[2017-05-28] MEDS: TIOTROPIUM BROMIDE DPI 5 CAP/KIT (18 MCG/CAP) IH SCH (10:36)
[2017-05-28] MEDS: INSULIN LISPRO 100 UNIT/ML 3 ML VIAL SUBCUT PRN ×3 (12:52→22:45)
[2017-05-28] MEDS: HYDROCODONE/ACETAMINOPHEN 5-325 MG TABLET PO PRN ×2 (14:10→21:53)
[2017-05-28] MEDS: ATORVASTATIN CALCIUM 10 MG TABLET NG SCH (21:53)
[2017-05-28] MEDS: LORAZEPAM INJ 2 MG/1 ML VIAL IV SCH (21:54)
[2017-05-29] MEDS: IPRATROPIUM/ALBUTEROL 0.5-2.5 MG/3 ML AMPUL NEB SCH ×3 (02:30→14:17)
[2017-05-29] MEDS: HEPARIN SOD (PORCINE) 5,000 UNIT/ML 1 ML SYRINGE SUBCUT SCH ×2 (05:11→13:32)
[2017-05-29 05:19] LABS: ABSOLUTE BASOPHILS # (AUTO) 0.1 10^3/uL (0.0-0.2); ABSOLUTE EOSINOPHILS # (AUTO) 0.4 10^3/uL (0.0-0.6); ABSOLUTE LYMPHOCYTES (AUTO) 0.9 10^3/uL (0.5-4.7); ABSOLUTE NEUT (AUTO) 4.5 10^3/uL (1.7-8.2); BASOPHILS % (AUTO) 1.3 % (0-2); EOSINOPHILS % (AUTO) 5.4 % (0-6); HEMATOCRIT 34.5 % (37.9-51.0); HGB HCT DIFFERENCE 1.5; MEAN CORPUSCULAR HEMOGLOBIN 31.6 pg (27.0-33.4); MEAN CORPUSCULAR HGB CONC 34.8 g/dL (32.0-36.0); MEAN CORPUSCULAR VOLUME 91 fl (80-97); MONOCYTES % (AUTO) 14.2 % (3-13); RED CELL DISTRIBUTION WIDTH 13.2 % (11.5-14.0); SEGMENTED NEUTROPHILS % (AUTO) 66.1 % (42-78); WHITE BLOOD COUNT 6.9 10^3/uL (4.0-10.5)
[2017-05-29 05:53] LABS: ANION GAP 7 (5-19); BLOOD UREA NITROGEN 18 mg/dL (7-20); CALCIUM 8.7 mg/dL (8.4-10.2); CARBON DIOXIDE 27 mmol/L (22-30); CHLORIDE 100 mmol/L (98-107); CREATININE RESULT 0.87 mg/dL (0.52-1.25); GLUCOSE 241 mg/dL (75-110); POTASSIUM 4.4 mmol/L (3.6-5.0); SODIUM 134.4 mmol/L (137-145)
[2017-05-29] MEDS: INSULIN LISPRO 100 UNIT/ML 3 ML VIAL SUBCUT PRN (07:57)
[2017-05-29] MEDS: METOPROLOL TARTRATE 50 MG TABLET PO SCH (09:21)
[2017-05-29] MEDS: LISINOPRIL 5 MG TABLET PO SCH (09:21)
[2017-05-29] MEDS: CLOPIDOGREL BISULFATE 75 MG TABLET PO SCH (09:21)
[2017-05-29] MEDS: CITALOPRAM HYDROBROMIDE 20 MG TABLET NG SCH (09:21)
[2017-05-29] MEDS: TIOTROPIUM BROMIDE DPI 5 CAP/KIT (18 MCG/CAP) IH SCH (09:21)
[2017-05-29] MEDS: ASPIRIN 81 MG TABLET, CHEWABLE NG SCH (09:21)
[2017-05-29] MEDS ORDERED: INSULIN GLARGINE,HUM.REC.ANLOG 300 UNIT/3 ML INSULN.PEN SUBCUT SCH (10:00)
--- NOTE | 2017-05-29 10:57 | PDOC PROGRESS REPORT ---
Subjective Progress Note for:: 05/29/17 Subjective:: reason for visit: f/u pneumonia, ams, hypoglycemia hospital course: per other's notes - "SENTHIL WALDEN JR is a 81 year old male with a past medical history of diabetes, depression, anxiety, COPD, diastolic heart failure and coronary artery disease who would been in his usual state of health until approximately 4 hours prior to being found by caregiver on the floor, cold, clammy and unresponsive. Blood sugar was found to be 36 EMS arrived administering IV dextrose and brought to the emergency room for evaluation. Family members at bedside verify he is not mentating at baseline. His initial workup is unremarkable but develops nausea with vomiting and abdominal distention. An abdominal series was obtained showing market gastric distention, an NG tube was placed, CT abdomen however is unremarkable for intra- abdominal process however shows bilateral pneumonia with small effusions. He started on BiPAP, empiric antibiotics and referred to the hospitalist for admission. Patient is unable to provide history. Family members are no longer at bedside." An ABG at presentation shows hypercapneic and hypoxic resp failure improved with NiPPV, review of the old record shows a similar pattern in the past. Review of telemetry revealed frequent PVCs, occasional bigeminy but mostly artifact and no clinically significant arrhythmia. his respiratory status seems to have stabilized. his mentation waxes and wanes with behavior disturbances most notable at night requiring intermittent ativan to keep him calm and safe. he is calm for the most part and participates with PT and nursing care. his son reports progressive short term memory loss rapidly worsening over the last couple of months with wild swings in his emotions but no violent behaviors. ROS: c/o sharp, stabbing neck radiating into his shoulders, worse with any movement, better with lying down and resting, with asct'd stiffness but no fevers/chills, REAVES, vision or hearing loss/tinnitus and no paresthesias. he denies chest pain, fever/chills, n/v/d. all systems reviewed, see above, remaining systems negative though his mentation is such that reliability remains suspect Physical Exam Vital Signs: Temp Pulse Resp BP Pulse Ox 98.4 F 85 20 151/68 H 91 L 05/29/17 07:33 05/29/17 08:16 05/29/17 08:16 05/29/17 07:33 05/29/17 08:16 Intake & Output 05/28/17 05/29/17 05/30/17 06:59 06:59 06:59 Intake Total 1380 1368 Output Total 800 600 Balance 580 768 Weight 81 kg 82.5 kg General appearance: PRESENT: mild acute distress due to pain in his neck, he is crying and quite emotional, well-developed, well-nourished Head exam: PRESENT: atraumatic, normocephalic Mouth exam: PRESENT: moist mucosa, neck supple, NECK: limited ROM due to pain on flexion or extension, muscles are supple and no LAD, no bruit or stridor; palpable crepitus and arthritic changes with lordosis of cervical spine, no paresthesias on compression of the spine cephalad. Respiratory exam: PRESENT: bilat base coarse crackles and decreased breath sounds ABSENT: accessory muscle use, wheezes Cardiovascular exam: PRESENT: RRR. ABSENT: systolic murmur Pulses: PRESENT: normal radial pulses, normal dorsalis pedis pul GI/Abdominal exam: PRESENT: normal bowel sounds, soft. ABSENT: guarding Extremities exam: PRESENT: pedal edema - trace NEURO: no facial asymmetry or loss of sensation to light touch, tongue protrudes midline, muscle strength is 5/5 and symmetric, EOMI Musculoskeletal exam: PRESENT: other - muscle tone normal, moves all 4 and able to follow commands Skin exam: PRESENT: dry, warm Results Laboratory Results: 05/29/17 04:24 05/29/17 04:24 05/29/17 05/29/17 04:24 04:24 WBC 6.9 RBC 3.80 L Hgb 12.0 L Hct 34.5 L MCV 91 MCH 31.6 MCHC 34.8 RDW 13.2 Plt Count 226 Seg Neutrophils % 66.1 Lymphocytes % 13.0 Monocytes % 14.2 H Eosinophils % 5.4 Basophils % 1.3 Absolute Neutrophils 4.5 Absolute Lymphocytes 0.9 Absolute Monocytes 1.0 Absolute Eosinophils 0.4 Absolute Basophils 0.1 Sodium 134.4 L Potassium 4.4 Chloride 100 Carbon Dioxide 27 Anion Gap 7 BUN 18 Creatinine 0.87 Est GFR ( Amer) > 60 Est GFR (Non-Af Amer) > 60 Glucose 241 H Calcium 8.7 05/21/17 05/21/17 05/21/17 11:28 11:28 17:19 Creatine Kinase 192 H 405 H CK-MB (CK-2) 6.99 H Troponin I < 0.012 05/21/17 17:19 Creatine Kinase CK-MB (CK-2) 10.90 H Troponin I < 0.012 Assessment & Plan - Diagnosis (1) Cervical spine pain Is this a current diagnosis for this admission?: YesPlan: new; i suspect this is from immobility in the setting of underlying arthritis of the spine, facet joints, etc. will ck cspine series and cover with pain meds in the interim. continue to encourage monitored activity. (2) Pneumonia Qualifiers: Pneumonia type: due to unspecified organism Laterality: bilateral Lung location: lower lobe of lung Qualified Code(s): J18.9 - Pneumonia, unspecified organism Is this a current diagnosis for this admission?: YesPlan: improved but not back to baseline; finished a course of levaquin, nebs, 91% on RA now (3) Acute respiratory failure with hypoxia and hypercapnia Is this a current diagnosis for this admission?: YesPlan: resolved (4) Hypoglycemia Is this a current diagnosis for this admission?: YesPlan: resolved with d/c of insulin pump and treatment. no recurrence; cover with basal/SSI (5) Metabolic encephalopathy Is this a current diagnosis for this admission?: YesPlan: improved and probably at his new baseline; waxing and waning but overall trend continues for the better until he and requires anxiolytic at night. 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 - Time Time Spent with patient: 15-24 minutes Medications reviewed and adjusted accordingly: Yes Anticipated discharge: SNF - Plan Summary Plan Summary: pt has not required NIPPV/BiPAP since 05/24 and weaned down to minimal supplemental O2 indicating he is out of the danger zone and will not routinely need BiPAP or non-invasive positive pressure ventilation going forward. He walked the halls yesterday with assistance marking a continued improvement in his condition. at this point awaiting placement options but he is medically stable for transfer as soon as bed available, he is NOT safe for discharge to independent living at this time.
--- NOTE | 2017-05-29 12:35 | PDOC TRANSFER SUMMARY ---
General - Admit/Disc Date/PCP Admission Date/Primary Care Provider: 05/21/17 06:22 PARKER ANGELES MD Discharge Date: 05/29/17 - Discharge Diagnosis (1) Cervical spine pain Is this a current diagnosis for this admission?: YesSummary: arthritic pain exacerbated by acute illness, recent fall and immobility; no fracture or dislocation by my read of imaging. continue PT and pain control at SNF. (2) Pneumonia Is this a current diagnosis for this admission?: YesSummary: improved but not back to baseline; finished a course of levaqdiane nebs, 91% on RA now (3) Acute respiratory failure with hypoxia and hypercapnia Is this a current diagnosis for this admission?: YesSummary: resolved, as above (4) Hypoglycemia Is this a current diagnosis for this admission?: YesSummary: resolved with d/c of insulin pump and treatment. no recurrence; cover with basal/SSI (5) Metabolic encephalopathy Is this a current diagnosis for this admission?: YesSummary: improved and probably at his new baseline; waxing and waning but overall trend continues for the better until he and requires anxiolytic at night. (6) Diabetes Is this a current diagnosis for this admission?: YesSummary: insulin pump removed due to hypoglycemia at presentation now running a bit high , will increase his basal insulin and continue SSI (7) Vascular dementia with behavior disturbance Is this a current diagnosis for this admission?: YesSummary: I suspect this is complicating his presentation and may account for it actually , if so then he is unable to continue to self administer his insulin at home. - Additional Information Resuscitation Status: Full Code Discharge Diet: Diabetic Discharge Activity: Slowly Increase Activity, Supervised Activity, Walk Frequently Home Medications: Aspirin [Aspirin 81 mg Chewable Tablet] 81 mg PO DAILY 05/21/17 Atorvastatin Calcium [Lipitor 80 mg Tablet] 80 mg PO QHS 05/21/17 Cetirizine HCl [Allergy Relief] 10 mg PO DAILY 05/21/17 Citalopram Hydrobromide [Celexa 40 mg Tablet] 40 mg PO DAILY 05/21/17 Clopidogrel Bisulfate [Plavix 75 mg Tablet] 75 mg PO DAILY 05/21/17 Lisinopril [Zestril] 2.5 mg PO DAILY 05/21/17 Metoprolol Tartrate [Lopressor 50 mg Tablet] 50 mg PO Q12 05/21/17 Nitroglycerin 1 tab SL Q5MP PRN 05/21/17 Acetaminophen [Tylenol Soln 325 mg/10.15 ml Udcup] 650 mg NG Q4HP PRN udc 05/29 Aspirin [Aspirin 81 mg Chewable Tablet] 81 mg NG DAILY tab.chew 05/29/17 Hydrocodone/Acetaminophen [Sebring 5-325 mg Tablet] 1 tab PO Q6HP PRN #10 tablet 05/29/17 Insulin Aspart [Novolog Insulin 100 Unit/1 ml 10 ml] 0 unit SUBCUT .SLD SCALE # 10 ml 05/29/17 Insulin Glargine,Hum.rec.anlog [Lantus Insulin 100 Unit/mL] 40 unit SUBCUT DAILY insuln.pen 05/29/17 Ipratropium/Albuterol Sulfate [Duoneb 3 ml Ampul] 3 ml NEB RTQ6HP PRN vial.neb 05/29/17 Lorazepam [Ativan 1 mg Tablet] 0.5 mg PO BIDP PRN #10 tablet 05/29/17 Metoprolol Tartrate [Lopressor 50 mg Tablet] 50 mg PO Q12 tablet 05/29/17 Mineral Oil [Fleet Mineral Oil Enema 133 ml] 133 ml AR BIDP PRN enema 05/29/17 Tiotropium [place] [Spiriva Handihaler 5 Cap/Kit (18 Mcg/Cap)] 1 cap IH DAILY kit 05/29/17 History of Present Illness Admission Date/PCP: 05/21/17 06:22 PARKER ANGELES MD Patient complains of: Altered mental status History of Present Illness: SENTHIL WALDEN JR is a 81 year old male with a past medical history of diabetes, depression, anxiety, COPD, diastolic heart failure and coronary artery disease who would been in his usual state of health until approximately 4 hours prior to being found by caregiver on the floor, cold, clammy and unresponsive. Blood sugar was found to be 36 EMS arrived administering IV dextrose and brought to the emergency room for evaluation. Family members at bedside verify he is not mentating at baseline. His initial workup is unremarkable but develops nausea with vomiting and abdominal distention. An abdominal series was obtained showing market gastric distention, an NG tube was placed, CT abdomen however is unremarkable for intra-abdominal process however shows bilateral pneumonia with small effusions. He started on BiPAP, empiric antibiotics and referred to the hospitalist for admission. Patient is unable to provide history. Family members are no longer at bedside. Hospital Course Hospital Course: An ABG at presentation shows hypercapneic and hypoxic resp failure improved with NiPPV, review of the old record shows a similar pattern in the past. Review of telemetry revealed frequent PVCs, occasional bigeminy but mostly artifact and no clinically significant arrhythmia. He was admitted for IV abx and pulmonary toilet improving gradually over the next several days finally weaning off supplemental O2 yesterday. his respiratory status seems to have stabilized. his mentation waxes and wanes with behavior disturbances most notable at night requiring intermittent ativan to keep him calm and safe. he is calm for the most part and participates with PT and nursing care. his son reports progressive short term memory loss rapidly worsening over the last couple of months with wild swings in his emotions but no violent behaviors. I suspect this is his new baseline and do not think he can function independently alone in his home at this time. It is possible these are lingering effects of the illness that will clear gradually over time. His hypoglycemia resolved with cessation of his insulin pump though his BSs are wildly labile and required frequent titration of his long and short acting insulin. He will need close outpt monitoring and treatment. This morning started c/o sharp, stabbing neck radiating into his shoulders, worse with any movement, better with lying down and resting, with asct'd stiffness but no fevers/chills, REAVES, vision or hearing loss/tinnitus and no paresthesias. he denies chest pain, fever/chills, n/v/d. all systems reviewed, see above, remaining systems negative though his mentation is such that reliability remains suspect. xrays of the cspine show no fracture or dislocation that I can see. I suspect this is 2/2 immobility for the last several days due to his illness and should improve as his activity does and with analgesics and PT at the facility. At this point he is stable for transfer to facility for ongoing care. Physical Exam Vital Signs: Temp Pulse Resp BP Pulse Ox 98.4 F 85 20 151/68 H 91 L 05/29/17 07:33 05/29/17 08:16 05/29/17 08:16 05/29/17 07:33 05/29/17 08:16 Intake & Output 05/28/17 05/29/17 05/30/17 06:59 06:59 06:59 Intake Total 1380 1368 Output Total 800 600 Balance 580 768 Weight 81 kg 82.5 kg General appearance: PRESENT: mild acute distress due to pain in his neck, he is crying and quite emotional, well-developed, well-nourished Head exam: PRESENT: atraumatic, normocephalic Mouth exam: PRESENT: moist mucosa, neck supple, NECK: limited ROM due to pain on flexion or extension, muscles are supple and no LAD, no bruit or stridor; palpable crepitus and arthritic changes with lordosis of cervical spine, no paresthesias on compression of the spine cephalad. Respiratory exam: PRESENT: bilat base coarse crackles and decreased breath sounds ABSENT: accessory muscle use, wheezes Cardiovascular exam: PRESENT: RRR. ABSENT: systolic murmur Pulses: PRESENT: normal radial pulses, normal dorsalis pedis pul GI/Abdominal exam: PRESENT: normal bowel sounds, soft. ABSENT: guarding Extremities exam: PRESENT: pedal edema - trace NEURO: no facial asymmetry or loss of sensation to light touch, tongue protrudes midline, muscle strength is 5/5 and symmetric, EOMI Musculoskeletal exam: PRESENT: other - muscle tone normal, moves all 4 and able to follow commands Skin exam: PRESENT: dry, warm Results Laboratory Results: 05/29/17 04:24 05/29/17 04:24 05/29/17 05/29/17 04:24 04:24 WBC 6.9 RBC 3.80 L Hgb 12.0 L Hct 34.5 L MCV 91 MCH 31.6 MCHC 34.8 RDW 13.2 Plt Count 226 Seg Neutrophils % 66.1 Lymphocytes % 13.0 Monocytes % 14.2 H Eosinophils % 5.4 Basophils % 1.3 Absolute Neutrophils 4.5 Absolute Lymphocytes 0.9 Absolute Monocytes 1.0 Absolute Eosinophils 0.4 Absolute Basophils 0.1 Sodium 134.4 L Potassium 4.4 Chloride 100 Carbon Dioxide 27 Anion Gap 7 BUN 18 Creatinine 0.87 Est GFR ( Amer) > 60 Est GFR (Non-Af Amer) > 60 Glucose 241 H Calcium 8.7 05/21/17 05/21/17 05/21/17 11:28 11:28 17:19 Creatine Kinase 192 H 405 H CK-MB (CK-2) 6.99 H Troponin I < 0.012 05/21/17 17:19 Creatine Kinase CK-MB (CK-2) 10.90 H Troponin I < 0.012 Impressions: Abdomen X-Ray 05/21/17 00:00 IMPRESSION: Marked gastric distention. Head CT 05/21/17 01:35 IMPRESSION: CHRONIC CHANGES OF ATROPHY AND MICROVASCULAR ISCHEMIA. Old cerebellar infarcts. NO ACUTE PROCESS. Abdomen/Pelvis CT 05/21/17 04:00 IMPRESSION: Bilateral pleural effusions with bilateral pneumonia. No acute intra-abdominal process. KUB X-Ray 05/21/17 04:30 IMPRESSION: Decompression of the stomach after placement of NG tube. Chest X-Ray 05/26/17 07:00 IMPRESSION: SLIGHT INCREASE IN BASILAR ATELECTASIS VERSUS INFILTRATE. Transfer Plan - Disposition Transfer Plan: to [facility] for rehab; son is in agreement. - Time Spent with Patient Time spent with patient: Greater than 30 Minutes Qualifiers PATEINT BEING DISCHARGED WITH ANY OF THE FOLLOWING DIAGNOSIS?: No VTE patient discharged on overlapping Therapy?: No Reason(s) for not prescribing Overlap Therapy:: Not indicated
[2017-05-29] MEDS ORDERED: INSULIN LISPRO 100 UNIT/ML 3 ML VIAL SUBCUT ONE (13:00)
--- NOTE | 2017-05-29 14:12 | RADIOLOGY REPORT (SQ) ---
EXAM DESCRIPTION: CERV SP 3 VIEW OR LESS COMPLETED DATE/TIME: 05/29/2017 10:20 am REASON FOR STUDY: NECK PAIN AFTER FALL COMPARISON: None. NUMBER OF VIEWS: Three views. TECHNIQUE: AP, lateral and odontoid radiographic images acquired of the cervical spine. LIMITATIONS: None. FINDINGS: MINERALIZATION: Normal. ALIGNMENT: Anatomic. VERTEBRAE: Vertebral bodies of normal height. DISCS: Disc space narrowing with osteophytes. HARDWARE: None in the spine. SOFT TISSUES: No masses or calcifications. Lung apices clear. OTHER: No other significant finding. IMPRESSION: CHRONIC DEGENERATIVE CHANGES. NO ACUTE RADIOGRAPHIC FINDING IN THE CERVICAL SPINE. TECHNICAL DOCUMENTATION: JOB ID: [id number] [employer]- All Rights Reserved
[2017-05-29] MEDS ORDERED: GUAIFENESIN SYRP 200 MG/10 ML UDC PO PRN (14:24)
[2017-05-29] MEDS ORDERED: ACETAMINOPHEN 325 MG TABLET PO PRN (14:26)
[2017-05-29 16:33] VITALS: BP 124/38
[2017-05-29] MEDS ORDERED: ATORVASTATIN CALCIUM 10 MG TABLET PO SCH (22:00)
[2017-05-30] MEDS ORDERED: ASPIRIN 81 MG TABLET, CHEWABLE PO SCH (10:00)
[2017-05-30] MEDS ORDERED: CITALOPRAM HYDROBROMIDE 20 MG TABLET PO SCH (10:00)
== END 2017-05-29 16:00 | DRG 189 ==
LOC: ER 00:27 → EH 02:20 → UNDOADMIN 02:20 → 3N 06:22 → EH 07:51 → 4S 05-29 00:10
PROVIDERS: ADMIT Internal Medicine; ATTEND Internal Medicine
PROC: 5A09457 Assistance with Respiratory Ventilation, 24-96 Consecutive Hours, Continuous Positive Airway Pressure (ICD-10-PCS; principal; 2017-05-21)
DX: J96.02 Acute respiratory failure with hypercapnia (principal); J18.9 Pneumonia, unspecified organism; G93.41 Metabolic encephalopathy; J44.0 Chronic obstructive pulmonary disease with (acute) lower respiratory infection; I50.22 Chronic systolic (congestive) heart failure; J96.01 Acute respiratory failure with hypoxia; M54.2 Cervicalgia; E11.649 Type 2 diabetes mellitus with hypoglycemia without coma; F01.50 Vascular dementia, unspecified severity, without behavioral disturbance, psychotic disturbance, mood disturbance, and anxiety; F32.9 Major depressive disorder, single episode, unspecified; F41.9 Anxiety disorder, unspecified; Z79.82 Long term (current) use of aspirin; Z79.899 Other long term (current) drug therapy; Z79.4 Long term (current) use of insulin; Z87.891 Personal history of nicotine dependence
CPT/HCPCS: 36415; 70450; 71010; 72040; 74000; 74020; 74177; 80048; 80053; 80307; 81001; 82550; 82553; 82803; 82962; 83605; 83735; 84484; 85025; 87040; 87086; 93005; 93010; 94640; 94660; 99291; G8978-GP; G8979-GP; J1644; J1815; J1940; J1956; J2060; J2405; J3480; J3490; J7620

== ENCOUNTER 2018-07-23 14:32 | Emergency (ER) | payer MEDICARE, OTHER ==
--- NOTE | 2018-07-23 16:24 | ER Document Report ---
ED General - General Chief Complaint: Abnormal Lab Results Stated Complaint: DIABETIC Time Seen by Provider: 07/23/18 15:35 Mode of Arrival: Ambulatory Information source: Patient Notes: This is a 82-year-old man with a history of diabetes, hypertension, coronary artery disease and a cognitive deficit. Patient is brought into the emergency room because of concerns for DKA. Patient does have a lesion underneath the left arm which patient's daughter states is been draining. They deny fever. The patient denies pain. TRAVEL OUTSIDE OF THE [place] IN LAST 30 DAYS: No - HPI Onset: Last week Onset/Duration: Gradual Quality of pain: No pain Severity: None Pain Level: Denies Associated symptoms: Nonproductive cough, Other - Rash. denies: Chest pain, Fever, Shortness of breath Exacerbated by: Denies Relieved by: Denies Similar symptoms previously: No Recently seen / treated by doctor: No - Related Data Allergies/Adverse Reactions: propoxyphene [From Darvon] Adverse Reaction (Verified 07/23/18 14:33) Past Medical History - General Information source: Relative - Social History Smoking Status: Never Smoker Cigarette use (# per day): No Chew tobacco use (# tins/day): No Frequency of alcohol use: None Drug Abuse: None Lives with: Family Family History: Reviewed & Not Pertinent, Other - Not obtainable due to patient condition Patient has suicidal ideation: No Patient has homicidal ideation: No - Past Medical History Cardiac Medical History: Reports: Hx Congestive Heart Failure, Hx Heart Attack - per family, Hx Hypercholesterolemia, Hx Hypertension Pulmonary Medical History: Denies: Hx Tuberculosis Endocrine Medical History: Reports: Hx Diabetes Mellitus Type 2 Renal/ Medical History: Denies: Hx Peritoneal Dialysis Musculoskeletal Medical History: Reports Hx Arthritis, Reports Hx Musculoskeletal Deformity, Reports Hx Musculoskeletal Trauma Psychiatric Medical History: Reports: Hx Depression, Hx Schizophrenia Past Surgical History: Reports: Hx Cardiac Surgery - stent - Immunizations Hx Diphtheria, Pertussis, Tetanus Vaccination: Yes Hx Pneumococcal Vaccination: 12/08/13 Review of Systems - Review of Systems Constitutional: denies: Chills, Fever EENT: No symptoms reported Cardiovascular: No symptoms reported. denies: Chest pain, Palpitations, Heart racing Respiratory: Cough. denies: Short of breath, Wheezing Gastrointestinal: denies: Abdominal pain, Nausea, Vomiting Genitourinary: No symptoms reported Male Genitourinary: No symptoms reported Musculoskeletal: No symptoms reported Skin: See HPI Hematologic/Lymphatic: No symptoms reported Neurological/Psychological: No symptoms reported Physical Exam - Vital signs Vitals: Temp Pulse Resp BP Pulse Ox 97.5 F 63 14 95/47 L 98 07/23/18 14:41 07/23/18 14:41 07/23/18 14:41 07/23/18 14:41 07/23/18 14:41 Notes: Physical exam: GENERAL: 82-year-old man, comfortable in the stretcher, no acute distress. HEAD: Atraumatic, normocephalic. EYES: Pupils equal round and reactive to light, extraocular movements intact, sclera anicteric, conjunctiva are normal. ENT: TMs normal, nares patent, oropharynx clear without exudates. Moist mucous membranes. NECK: Normal range of motion, supple without obvious mass or JVD. LUNGS: Breath sounds clear to auscultation bilaterally and equal. No wheezes rales or rhonchi. HEART: Regular rate and rhythm without murmurs, rubs or gallops. ABDOMEN: Soft, normoactive bowel sounds. No tenderness to palpation. No guarding, no rebound. No masses appreciated. Perianal area: Skin clear, no abscesses. Scrotum: Clear, no skin changes EXTREMITIES: Normal range of motion, no pitting or edema. No clubbing or cyanosis. NEUROLOGICAL: Cranial nerves II through XII grossly intact. Normal speech, moving all extremities. PSYCH: Normal mood, normal affect. SKIN: She does have multiple ant bites to both lower extremities. In the left axilla, he does have a small erythematous areas which are hard, 1 of these areas have been draining. There is no fluctuance or drainage at this time. There is no palpable abscesses here. Course - Vital Signs Vital signs: Temp Pulse Resp BP Pulse Ox 98.6 F 64 18 148/63 H 98 07/23/18 19:14 07/23/18 19:14 07/23/18 19:14 07/23/18 19:14 07/23/18 19:14 - Laboratory Result Diagrams: 07/23/18 15:56 07/23/18 15:56 Laboratory results interpreted by me: 07/23/18 07/23/18 07/23/18 15:39 15:56 15:56 RBC 3.96 L Hgb 12.4 L Hct 35.5 L Eosinophils % 7.1 H Sodium 135.4 L Glucose 316 H POC Glucose 346 H Total Protein 5.7 L Albumin 3.1 L Urine Protein Urine Glucose (UA) Urine Urobilinogen 07/23/18 15:56 RBC Hgb Hct Eosinophils % Sodium Glucose POC Glucose Total Protein Albumin Urine Protein >=500 H Urine Glucose (UA) >=500 H Urine Urobilinogen 2.0 H - Diagnostic Test Radiology reviewed: Image reviewed, Reports reviewed - Chest x-ray shows no infiltrates Discharge - Discharge Clinical Impression: Diabetes, Dehydration, Folliculitis Condition: Stable Disposition: HOME, SELF-CARE Additional Instructions: As we discussed, there was no evidence of DKA today. You were dehydrated and your blood pressure improved with IV fluids. Last blood pressure was 141/74. Your chest x-ray was clear. Your kidney function was good. Chest x-ray was clear. The left arm shows a folliculitis which is infection of the follicle. There is no evidence of abscess at this time. The oral antibiotic as prescribed. You could also apply bacitracin once daily over the red area. Return to the emergency room for increasing pain or swelling to the armpit or development of fever (temperature greater than 100.5). It is very important that you clean the area daily underneath your armpits as well as hands and feet given your diabetes. You are at risk of infections getting out of control if you do not do this. Prescriptions: Bacitracin Zinc [Bacitracin Oint 15 gm] 1 applic TP DAILY #1 tube Cephalexin Monohydrate [Keflex 500 mg Capsule] 500 mg PO QID #28 capsule Referrals: PARKER ANGELES MD [Primary Care Provider] - Follow up in 3-5 days (Follow-up with Dr. Lorenzo in 3-5 days. Please bring a copy of today's labs and x-ray report with you when you go.)
--- NOTE | 2018-07-23 16:52 | RADIOLOGY REPORT (SQ) ---
EXAM DESCRIPTION: CHEST SINGLE VIEW COMPLETED DATE/TIME: 07/23/2018 4:44 pm REASON FOR STUDY: weakness, cough COMPARISON: AP chest 05/26/2017, 05/21/2017 EXAM PARAMETERS: NUMBER OF VIEWS: One view. TECHNIQUE: Single frontal radiographic view of the chest acquired. RADIATION DOSE: NA LIMITATIONS: None. FINDINGS: LUNGS AND PLEURA: No opacities, masses or pneumothorax. No pleural effusion. MEDIASTINUM AND HILAR STRUCTURES: No masses. Contour normal. HEART AND VASCULAR STRUCTURES: Heart normal in size. Normal vasculature. BONES: No acute findings. HARDWARE: None in the chest. OTHER: No other significant finding. IMPRESSION: NO ACUTE RADIOGRAPHIC FINDING IN THE CHEST. TECHNICAL DOCUMENTATION: JOB ID: [id number] [employer]- All Rights Reserved Reading location - IP/workstation name: [email or web address]
[2018-07-23] MEDS ORDERED: ONDANSETRON HCL INJ/PF 4 MG/2 ML SDV IV ONE (17:16)
[2018-07-23 17:25] LABS: VENOUS BLOOD BASE EXCESS 3.7 mmol/L; VENOUS BLOOD PCO2 52.4 mmHg (35-63); VENOUS BLOOD PH 7.38 (7.30-7.42)
[2018-07-23 17:26] LABS: ABSOLUTE BASOPHILS # (AUTO) 0.1 10^3/uL (0.0-0.2); ABSOLUTE EOSINOPHILS # (AUTO) 0.5 10^3/uL (0.0-0.6); ABSOLUTE LYMPHOCYTES (AUTO) 1.2 10^3/uL (0.5-4.7); ABSOLUTE MONOCYTES (AUTO) 0.8 10^3/uL (0.1-1.4); ABSOLUTE NEUT (AUTO) 4.7 10^3/uL (1.7-8.2); BASOPHILS % (AUTO) 0.7 % (0-2); EOSINOPHILS % (AUTO) 7.1 % (0-6); HEMATOCRIT 35.5 % (37.9-51.0); HEMOGLOBIN 12.4 g/dL (13.5-17.0); MEAN CORPUSCULAR HEMOGLOBIN 31.2 pg (27.0-33.4); MEAN CORPUSCULAR HGB CONC 34.9 g/dL (32.0-36.0); MEAN CORPUSCULAR VOLUME 90 fl (80-97); MONOCYTES % (AUTO) 11.1 % (3-13); PLATELET COUNT 184 10^3/uL (150-450); RED BLOOD COUNT 3.96 10^6/uL (4.35-5.55); RED CELL DISTRIBUTION WIDTH 12.9 % (11.5-14.0); SEGMENTED NEUTROPHILS % (AUTO) 64.1 % (42-78); TOTAL CELLS COUNTED % (AUTO) 100 %; WHITE BLOOD COUNT 7.3 10^3/uL (4.0-10.5)
[2018-07-23 17:29] LABS: APPEARANCE,URINE SLIGHTLY-CLOUDY; BILIRUBIN,URINE NEGATIVE (NEGATIVE); COLOR,URINE AMBER; GLUCOSE, URINE >=500 mg/dL (NEGATIVE); KETONES,URINE NEGATIVE (NEGATIVE); LEUKOCYTE ESTERASE,URINE NEGATIVE (NEGATIVE); NITRITE,URINE NEGATIVE (NEGATIVE); PROTEIN,URINE >=500 mg/dL (NEGATIVE); URINE SPECIFIC GRAVITY 1.026
[2018-07-23 17:30] LABS: ALANINE AMINOTRANSFERASE 35 U/L (21-72); ALBUMIN 3.1 g/dL (3.5-5.0); ALKALINE PHOSPHATASE 98 U/L (38-126); ANION GAP 8 (5-19); ASPARTATE AMINO TRANSFERASE 21 U/L (17-59); BILIRUBIN,DIRECT 0.2 mg/dL (0.0-0.4); BILIRUBIN,TOTAL 0.6 mg/dL (0.2-1.3); BLOOD UREA NITROGEN 19 mg/dL (7-20); CALCIUM 9.1 mg/dL (8.4-10.2); CARBON DIOXIDE 29 mmol/L (22-30); CHLORIDE 98 mmol/L (98-107); GLUCOSE 316 mg/dL (75-110); POTASSIUM 4.5 mmol/L (3.6-5.0); SODIUM 135.4 mmol/L (137-145); TOTAL PROTEIN 5.7 g/dL (6.3-8.2)
[2018-07-23 19:15] VITALS: BP 148/63
== END 2018-07-23 19:23 | disposition home or self-care (01) ==
LOC: ER 14:32
DX: E11.9 Type 2 diabetes mellitus without complications (principal); L73.9 Follicular disorder, unspecified; E86.0 Dehydration; I25.10 Atherosclerotic heart disease of native coronary artery without angina pectoris; I50.9 Heart failure, unspecified; I11.0 Hypertensive heart disease with heart failure
CPT/HCPCS: 36415; 71045; 80053; 81001; 82803; 82962; 83605; 85025; 87086; 99284; J2405

== ENCOUNTER → 2019-05-14 | Outpatient (CLI) | payer MEDICARE, OTHER ==
[2019-05-14 10:53] LABS: HEMATOCRIT 33.4 % (37.9-51.0); HEMOGLOBIN 11.4 g/dL (13.5-17.0); MEAN CORPUSCULAR HEMOGLOBIN 31.1 pg (27.0-33.4); MEAN CORPUSCULAR HGB CONC 34.2 g/dL (32.0-36.0); MEAN CORPUSCULAR VOLUME 91 fl (80-97); PLATELET COUNT 201 10^3/uL (150-450); RED BLOOD COUNT 3.67 10^6/uL (4.35-5.55); RED CELL DISTRIBUTION WIDTH 13.7 % (11.5-14.0); WHITE BLOOD COUNT 7.3 10^3/uL (4.0-10.5)
[2019-05-14 11:10] LABS: ANION GAP 6 (5-19); BLOOD UREA NITROGEN 16 mg/dL (7-20); CALCIUM 9.2 mg/dL (8.4-10.2); CARBON DIOXIDE 31 mmol/L (22-30); CHLORIDE 102 mmol/L (98-107); GLUCOSE 107 mg/dL (75-110); POTASSIUM 4.4 mmol/L (3.6-5.0)
== END ==
LOC: OD 10:01
PROVIDERS: ATTEND Family Medicine
DX: E87.8 Other disorders of electrolyte and fluid balance, not elsewhere classified (principal)
CPT/HCPCS: 36415; 80048; 85027

== ENCOUNTER 2019-07-10 19:37 | Inpatient (IN) | payer MEDICARE, OTHER ==
--- NOTE | 2019-07-10 20:17 | ER Document Report ---
ED General - General Stated Complaint: REFUSING TO EAT Time Seen by Provider: 07/10/19 20:16 Primary Care Provider: ROSA JEAN MD [Primary Care Provider] - Follow up as needed Mode of Arrival: Stretcher Information source: Patient, Emergency Med Personnel Notes: HISTORY OF PRESENT ILLNESS: Patient is a 83-year-old male with an extensive past medical history including dementia and coronary disease currently on Plavix who presents with mechanical fall 3 to 4 days ago. Patient reports that he was attempting to stand and walk at his living facility when he fell forward, striking the right side of his face on the ground. He denies losing consciousness and remembers the entire event, reports that he told facility staff but "they did not bring me until now." Location: Face, head Onset: 3 days ago Provocation: None Quality: Aching Radiation: None Severity: Mild Timing: [employer] Get[employer] Associated symptoms: Denies vision changes, no ataxia, no numbness/tingling of extremities, no confusion or disorientation, no bleeding REVIEW OF SYSTEMS: CONSTITUTIONAL : Denies fever or chills, no sweats. Denies recent illness. EENT: Denies eye, ear, throat, or mouth pain or symptoms. Denies nasal or sinus congestion. CARDIOVASCULAR: Denies chest pain. RESPIRATORY: Denies cough, cold, or chest congestion. Denies shortness of breath, difficulty breathing, or wheezing. GASTROINTESTINAL: Denies abdominal pain. Denies nausea, vomiting, or diarrhea. Denies constipation. GENITOURINARY: Denies difficulty urinating, painful urination, burning, frequency, or blood in urine. MUSCULOSKELETAL: Positive for right-sided facial pain as well as mild left posterior scalp pain. Denies neck or back pain or joint pain or swelling. SKIN: Denies rash or skin lesions. HEMATOLOGIC : Denies easy bruising or bleeding. LYMPHATIC: Denies swollen, enlarged glands. NEUROLOGICAL: Denies altered mental status or loss of consciousness. Denies headache. Denies weakness or paralysis or loss of use of either side. Denies problems with gait or speech. Denies sensory or motor loss. PSYCHIATRIC: Denies anxiety or stress or depression. All other systems reviewed and negative. PHYSICAL EXAMINATION: GENERAL: Frail but well-appearing, well-nourished and in no acute distress. HEAD: Mild tenderness to the left posterior occipital scalp without bleeding or lesion, mild swelling, normocephalic. No scalp deformity, depression, or crepitance. EYES: Pupils are 2mm and equal/round/reactive to light, extraocular movements intact, sclera anicteric, conjunctiva are normal. ENT: Nares patent bilaterally, oropharynx clear without exudates or palatal petechia. Moist mucous membranes. No tonsil hypertrophy. NECK: Normal range of motion, supple without lymphadenopathy. LUNGS: Breath sounds present, equal, and clear to auscultation bilaterally. No wheezes, rales, or rhonchi. HEART: Regular rate and rhythm without murmurs, rubs, or gallops. 2+ peripheral pulses. Normal capillary refill. ABDOMEN: Soft, nontender, nondistended. Normoactive bowel sounds. No guarding, no rebound. No masses appreciated. BACK: Normal contour, no midline tenderness. Rectal exam deferred. GENITAL: Deferred. EXTREMITIES: Normal range of motion, no pitting or edema. No cyanosis. NEUROLOGICAL: No focal neurological deficits. Moves all extremities spontaneously and on command. PSYCH: Normal mood, normal affect. No suicidal thoughts/ideations. No homicidal thoughts/ideations. No hallucinations. SKIN: Warm, dry, normal turgor, no rashes or lesions noted. ASSESSMENT AND PLAN: This patient is a 83-year-old male who presents with facial pain and scalp swelling after mechanical fall. 1. Will obtain CT scans of the head/cervical spine and reassess. 2. Will feed the patient if scans are negative. TRAVEL OUTSIDE OF THE [place] IN LAST 30 DAYS: No - HPI Patient complains to provider of: Fall Onset: Other - 3 days ago Onset/Duration: Sudden Quality of pain: Achy Severity: None Pain Level: Denies Associated symptoms: None Exacerbated by: Denies Relieved by: Denies Similar symptoms previously: No Recently seen / treated by doctor: No - Related Data Allergies/Adverse Reactions: propoxyphene [From Darvon] Adverse Reaction (Verified 02/18/19 09:51) Past Medical History - General Information source: Patient, Emergency Med Personnel, Outside Facility Records Cannot obtain history due to: Dementia - Social History Smoking Status: Never Smoker Chew tobacco use (# tins/day): No Frequency of alcohol use: None Drug Abuse: None Lives with: Assisted Family History: CAD, DM, Other - Not obtainable due to patient condition Patient has suicidal ideation: No Patient has homicidal ideation: No - Past Medical History Cardiac Medical History: Reports: Hx Congestive Heart Failure, Hx Coronary Artery Disease, Hx Heart Attack - per family, Hx Hypercholesterolemia, Hx Hypertension Pulmonary Medical History: Reports: None Denies: Hx Tuberculosis EENT Medical History: Reports: None Neurological Medical History: Reports: None Endocrine Medical History: Reports: Hx Diabetes Mellitus Type 2 Renal/ Medical History: Reports: None. Denies: Hx Peritoneal Dialysis Malignancy Medical History: Reports None GI Medical History: Reports: None Musculoskeletal Medical History: Reports Hx Arthritis, Reports Hx Musculoskeletal Deformity, Reports Hx Musculoskeletal Trauma Skin Medical History: Denies Hx Eczema, Denies Hx Psoriasis Psychiatric Medical History: Reports: Hx Anxiety, Hx Dementia, Hx Depression, Hx Schizophrenia Traumatic Medical History: Reports: None Infectious Medical History: Reports: None Past Surgical History: Reports: Hx Appendectomy, Hx Cardiac Surgery - stent - Immunizations Hx Diphtheria, Pertussis, Tetanus Vaccination: Yes Hx Pneumococcal Vaccination: 12/08/13 Review of Systems - Review of Systems Constitutional: No symptoms reported EENT: No symptoms reported Cardiovascular: No symptoms reported Respiratory: No symptoms reported Gastrointestinal: No symptoms reported Genitourinary: No symptoms reported Male Genitourinary: No symptoms reported Musculoskeletal: No symptoms reported Skin: No symptoms reported Hematologic/Lymphatic: No symptoms reported Neurological/Psychological: No symptoms reported -: Yes All other systems reviewed and negative Physical Exam - Vital signs Vitals: Temp Pulse Resp BP Pulse Ox 98.2 F 81 24 H 130/73 H 97 07/10/19 19:53 07/10/19 19:53 07/10/19 19:53 07/10/19 19:53 07/10/19 19:53 Interpretation: Normal Course - Re-evaluation Re-evalutation: 07/10/19 21:43 CT scans of the head and cervical spine are negative for acute fracture or other pathology. Will discharge the patient home with strict return precautions and follow-up with your primary physician. All results were explained to and discussed with the patient, and all questions addressed and answered for the patient. The patient voices both understanding and agreeing with the plan. - Vital Signs Vital signs: Temp Pulse Resp BP Pulse Ox 98.2 F 81 20 134/69 H 98 07/10/19 19:53 07/10/19 19:53 07/10/19 20:09 07/10/19 20:01 07/10/19 20:09 - Diagnostic Test Radiology reviewed: Image reviewed, Reports reviewed Discharge - Discharge Clinical Impression: Fall Qualifiers: Encounter type: initial encounter Qualified Code(s): W19.XXXA - Unspecified fall, initial encounter Condition: Good Disposition: HOME, SELF-CARE Additional Instructions: You have been evaluated in the Emergency Department for falling and hitting her head. While here, you had CAT scans of both your head and neck which showed no acute injuries and it is now safe to be discharged home. Please follow-up with your primary physician as instructed in one week to be rechecked. Return to the Emergency Department if you experience confusion/disorientation, inability to walk, vision changes, headaches, or any other concerning symptoms. Referrals: ROSA JEAN MD [Primary Care Provider] - Follow up as needed Print Language: Honduran
--- NOTE | 2019-07-10 21:36 | RADIOLOGY REPORT (SQ) ---
CT cervical spine without contrast HISTORY: Neck pain, trauma. This exam was performed according to our departmental dose-optimization program which includes automated exposure control, adjustment of the mA and/or kVp according to patient size and/or use of iterative reconstruction technique where applicable. FINDINGS: No acute fracture or subluxation. Moderate degenerative changes at C4-5, C5-C6 and C6-7. No significant prevertebral soft tissue swelling. Facets are normally aligned. No significant prevertebral soft tissue swelling. Moderate degenerative changes at C1-2. Odontoid process is intact. IMPRESSION: No fracture or subluxation. Moderate multilevel degenerative changes.
--- NOTE | 2019-07-10 21:37 | RADIOLOGY REPORT (SQ) ---
EXAM DESCRIPTION: CT HEAD WITHOUT IV CONTRAST COMPLETED DATE/TME: 07/10/2019 20:54 CLINICAL HISTORY: 83 years, Male, Fall Compared to CT head dated 05/21/2017. This exam was performed according to our departmental dose-optimization program which includes automated exposure control, adjustment of the mA and/or kVp according to patient size and/or use of iterative reconstruction technique where applicable. FINDINGS: No acute intracranial hemorrhage, mass effect or midline shift. No extra-axial fluid collections. Ventricles and subarachnoid spaces are moderately dilated consistent with cerebral atrophy. Mild patchy hypodense areas in periventricular white matter both cerebral hemispheres consistent with chronic small vessel ischemic changes. Visualized paranasal sinuses and the mastoid air cells are clear. The skull is intact. IMPRESSION: No acute intracranial hemorrhage. Mild chronic ischemic changes.
[2019-07-10] MEDS ORDERED: HALOPERIDOL LACTATE INJ 5 MG/1 ML VIAL IM ONE (23:41)
[2019-07-11] MEDS ORDERED: METFORMIN HCL 500 MG TABLET PO SCH (08:00)
[2019-07-11] MEDS ORDERED: LISINOPRIL 5 MG TABLET PO SCH (10:00)
[2019-07-11] MEDS ORDERED: CITALOPRAM HYDROBROMIDE 20 MG TABLET PO SCH (10:00)
[2019-07-11] MEDS ORDERED: CLOPIDOGREL BISULFATE 75 MG TABLET PO SCH (10:00)
[2019-07-11] MEDS: HUM INSULIN NPH/REG INSULIN HM 100 UNIT/1 ML 3 ML SUBCUT SCH ×2 (10:36→16:43)
[2019-07-11] MEDS: METOPROLOL TARTRATE 25 MG TABLET PO SCH ×2 (10:41→21:27)
[2019-07-11] MEDS: MEMANTINE HCL 10 MG TABLET PO SCH ×2 (11:20→21:27)
[2019-07-11 12:58] LABS: BLOOD UREA NITROGEN 43 mg/dL (7-20); CALCIUM 9.3 mg/dL (8.4-10.2)
[2019-07-11 13:03] LABS: CHLORIDE 87 mmol/L (98-107)
[2019-07-11 13:14] LABS: ANION GAP 32 (5-19)
[2019-07-11 13:16] LABS: CARBON DIOXIDE 8 mmol/L (22-30); GLUCOSE 928 mg/dL (75-110); POTASSIUM 6.1 mmol/L (3.6-5.0)
--- NOTE | 2019-07-11 13:31 | ER Document Report ---
Doctor's Note Notes: 07/11/19 13:28 Patient was evaluated upon his arrival last night for a fall in which he hit the right side of his face causing significant bruising. He had a CT scan of his head and C-spine which were negative last night. Patient is diabetic and as we were planning on discharging the patient to go back to his residence at a local assisted living, and Accu-Chek was done that read high. Patient vomited once and was able to drink fluids after that. Patient was given his usual 70s/30 insulin and an hour later a repeat Accu-Chek was read as "high". I then ordered a Chem-7 which came back showing the patient had a blood sugar of over 900. Patient will be admitted to the hospitalist service for fluids and blood sugar maintenance.
[2019-07-11] MEDS ORDERED: NORMAL SALINE 1000 ML 1,000 ML IV ONE (14:00)
[2019-07-11] MEDS ORDERED: INSULIN REG, HUMAN 100 UNIT/ML 3 ML VIAL (PYX) IV ONE (14:02)
[2019-07-11 14:32] LABS: VENOUS BLOOD HCO3 10.6 mmol/L (20-32); VENOUS BLOOD PCO2 31.4 mmHg (35-63)
[2019-07-11 14:33] LABS: VENOUS BLOOD PH 7.15 (7.30-7.42)
[2019-07-11 14:36] LABS: HEMATOCRIT 36.1 % (37.9-51.0); HEMOGLOBIN 11.2 g/dL (13.5-17.0); MEAN CORPUSCULAR HEMOGLOBIN 31.4 pg (27.0-33.4); MEAN CORPUSCULAR HGB CONC 31.1 g/dL (32.0-36.0); MEAN CORPUSCULAR VOLUME 101 fl (80-97); PLATELET COUNT 319 10^3/uL (150-450); RED BLOOD COUNT 3.58 10^6/uL (4.35-5.55); RED CELL DISTRIBUTION WIDTH 14.2 % (11.5-14.0); WHITE BLOOD COUNT 24.1 10^3/uL (4.0-10.5)
[2019-07-11 14:59] LABS: ADD MANUAL MICROSCOPIC YES; APPEARANCE,URINE CLOUDY; BILIRUBIN,URINE NEGATIVE (NEGATIVE); COLOR,URINE YELLOW; GLUCOSE, URINE >=500 mg/dL (NEGATIVE); KETONES,URINE 20 mg/dL (NEGATIVE); LEUKOCYTE ESTERASE,URINE LARGE (NEGATIVE); NITRITE,URINE NEGATIVE (NEGATIVE); PROTEIN,URINE 100 mg/dL (NEGATIVE); URINE SPECIFIC GRAVITY 1.017
[2019-07-11 15:00] LABS: ABSOLUTE LYMPHOCYTES# (MANUAL) 1.9 10^3/uL (0.5-4.7); ABSOLUTE MONOCYTES # (MANUAL) 2.2 10^3/uL (0.1-1.4); BASOPHILS % (MANUAL) 0 % (0-2); EOSINOPHILS % (MANUAL) 0 % (0-6); LYMPHOCYTES % (MANUAL) 8 % (13-45); MONOCYTES % (MANUAL) 9 % (3-13); SEGMENTED NEUTROPHILS % (MAN) 83 % (42-78); TOTAL CELLS COUNTED 100
[2019-07-11 15:01] LABS: ALKALINE PHOSPHATASE 116 U/L (38-126); ASPARTATE AMINO TRANSFERASE 35 U/L (17-59); BILIRUBIN,DIRECT 0.4 mg/dL (0.0-0.4); BILIRUBIN,TOTAL 0.9 mg/dL (0.2-1.3); BLOOD UREA NITROGEN 47 mg/dL (7-20); CALCIUM 8.9 mg/dL (8.4-10.2); CARBON DIOXIDE 11 mmol/L (22-30); CHLORIDE 85 mmol/L (98-107)
[2019-07-11 15:02] LABS: ANISOCYTOSIS SLIGHT; PLATELET COMMENT ADEQUATE; PLATELET LARGE PRESENT; POLYCHROMASIA 1+
--- NOTE | 2019-07-11 15:05 | RADIOLOGY REPORT (SQ) ---
EXAM DESCRIPTION: CHEST SINGLE VIEW COMPLETED DATE/TIME: 07/11/2019 2:57 pm REASON FOR STUDY: Fell and hit right face COMPARISON: 02/19/2019. EXAM PARAMETERS: NUMBER OF VIEWS: One view. TECHNIQUE: Single frontal radiographic view of the chest acquired. RADIATION DOSE: NA LIMITATIONS: None. FINDINGS: LUNGS AND PLEURA: No opacities, masses or pneumothorax. No pleural effusion. MEDIASTINUM AND HILAR STRUCTURES: No masses. Contour normal. HEART AND VASCULAR STRUCTURES: Heart normal in size. Normal vasculature. BONES: No acute findings. HARDWARE: None in the chest. OTHER: No other significant finding. IMPRESSION: NO ACUTE RADIOGRAPHIC FINDING IN THE CHEST. TECHNICAL DOCUMENTATION: JOB ID: [id number] [email or web address]- All Rights Reserved Reading location - IP/workstation name: [email or web address]
[2019-07-11 15:09] LABS: GLUCOSE 979 mg/dL (75-110)
[2019-07-11 15:10] LABS: ANION GAP 30 (5-19); POTASSIUM 6.2 mmol/L (3.6-5.0)
[2019-07-11 15:12] LABS: BACTERIA,URINE 1+ /HPF; RBC,URINE 0-1 /HPF; WBC,URINE 50-100 /HPF
[2019-07-11] MEDS ORDERED: GLUCAGON,HUMAN RECOMB 1 MG INJ IM PRN ×2 (15:30→16:51)
[2019-07-11] MEDS ORDERED: DEXTROSE 50%-WATER SYRINGE 25 GM/50 ML DOSE IV PRN (15:30)
[2019-07-11] MEDS ORDERED: DEXTROSE 40% GEL 15 GM TUBE X 2 PO PRN (15:30)
[2019-07-11] MEDS ORDERED: DEXTROSE 40% GEL 15 GM TUBE PO PRN ×3 (15:30→16:51)
[2019-07-11] MEDS ORDERED: INSULIN, REGULAR 100 UNIT/100 ML NORMAL SALINE IV PRN ×2 (15:30)
[2019-07-11] MEDS ORDERED: DEXTROSE 50%-WATER SYRINGE 12.5 GM/25 ML DOSE IV PRN (15:30)
[2019-07-11] MEDS ORDERED: CEFTRIAXONE 2 GM/D5W RTU 2 GM/50 ML RTUPB IV ONE (15:59)
[2019-07-11] MEDS ORDERED: ONDANSETRON HCL INJ/PF 4 MG/2 ML SDV IV PRN (16:51)
[2019-07-11] MEDS ORDERED: NORMAL SALINE 100 ML with INSULIN REGULAR, HUMAN 100 UNIT IV PRN ×2 (16:51)
[2019-07-11] MEDS ORDERED: DEXTROSE 50%-WATER 25 GM/50 ML DISP.SYRIN IV PRN ×2 (16:51)
[2019-07-11] MEDS: NORMAL SALINE 1000 ML 1,000 ML IV PRN (17:53)
--- NOTE | 2019-07-11 17:53 | PDOC H&P ---
History of Present Illness Admission Date/PCP: ROSA JEAN MD History of Present Illness: SENTHIL WALDEN JR is a 83 year old male with an uncertain degree of cognitive impairment who is an insulin-dependent diabetic and lives full-time at the [facility] where his family had him placed because he said they could not take care of him at home. He was brought in some time yesterday after a fall at the assisted living facility. He had a bump on his head and so they scanned his head and cervical spine and, both tests were unremarkable. Last night they checked his blood sugar and it was around 110. They were going to send him home but the patient was refusing to go back, saying he wanted to go home. They called the ambulance service for transport and they said they could not take him because they claim the patient was alert and oriented x3. They then called the patient's son who refused to take him back because he said he could not take care of him. He then called [facility] and they said that it was out of their jurisdiction. Call the [facility]'s department who came to see the patient and talk to him and then said there was nothing they can do because they said that he was alert and oriented x4. The reconciliation manager talk to them and was able to convince him to go back over there as long as she promised to call and check on him once a week which she did. They were arranging transport when they went to give him his medicines. He said he did not want to take any of his medicines until he ate. They checked his blood sugar and it was substantially elevated. They try to get his blood sugar back under control and put the transport on hold until such time as his blood sugar was reasonable. It kept reading "high." The patient was acting his usual self and was asymptomatic. He did get a little sick to his stomach this morning and apparently had one episode of vomiting and diarrhea. At this point they decided to check some labs on him, and he was noted to have multiple metabolic derangements consistent with DKA. Apparently the patient had nothing to eat overnight per nursing report. He is being admitted for DKA, hyperkalemia, acute kidney injury, and dehydration. Past Medical History Cardiac Medical History: Reports: Congestive Heart Failure, Coronary Artery Disease, Myocardial Infarction - per family, Hyperlipidema, Hypertension Pulmonary Medical History: Reports: None Denies: Tuberculosis EENT Medical History: Reports: None Neurological Medical History: Reports: None Endocrine Medical History: Reports: Diabetes Mellitus Type 2 Renal/ Medical History: Reports: None Malignancy Medical History: Reports: None GI Medical History: Reports: None Musculoskeltal Medical History: Reports: Arthritis Skin Medical History: Denies: Eczema, Psoriasis Psychiatric Medical History: Reports: Dementia, Depression Traumatic Medical History: Reports: None Hematology: Denies: Anemia, Sickle Cell Disease Infectious Medical History: Reports: None Past Surgical History Past Surgical History: Reports: Appendectomy Social History Lives with: Usp Smoking Status: Never Smoker Frequency of Alcohol Use: Occasional Hx Recreational Drug Use: No Drugs: None Hx Prescription Drug Abuse: No Family History Family History: CAD, DM, Other - Not obtainable due to patient condition Parental Family History Reviewed: No - Patient unreliable historian Children Family History Reviewed: No - Unreliable historian Sibling(s) Family History Reviewed.: No - Unreliable historian Medication/Allergy Home Medications: Atorvastatin Calcium [Lipitor 80 mg Tablet] 80 mg PO DAILY 02/18/19 Citalopram Hydrobromide [Citalopram HBr] 40 mg PO DAILY 02/18/19 Clopidogrel Bisulfate [Plavix 75 mg Tablet] 75 mg PO DAILY 02/18/19 Lisinopril [Prinivil 2.5 mg Tablet] 2.5 mg PO DAILY 02/18/19 Memantine HCl [Namenda 10 mg Tablet] 10 mg PO BID 02/18/19 Metformin HCl [Glucophage 500 mg Tablet] 500 mg PO BID 02/18/19 Metoprolol Tartrate [Lopressor 25 mg Tablet] 25 mg PO Q12 02/18/19 Hum Insulin NPH/Reg Insulin Hm [Insulin 70-30 (NPH/Reg) 100 unit/mL] 18 unit SUBCUT BIDACBS #1 unit 02/22/19 Allergies/Adverse Reactions: propoxyphene [From Darvon] Adverse Reaction (Verified 02/18/19 09:51) Review of Systems ROS unobtainable: Due to mental status Physical Exam Vital Signs: Temp Pulse Resp BP Pulse Ox 98.5 F 102 H 20 120/57 L 99 07/11/19 15:08 07/11/19 10:45 07/11/19 16:31 07/11/19 16:31 07/11/19 16:31 Intake & Output 07/10/19 07/11/19 07/12/19 06:59 06:59 06:59 Intake Total 57 Balance 57 Weight 77.111 kg General appearance: PRESENT: no acute distress, cooperative, disheveled, other - He was still chewing on some pork that he had apparently had for lunch and was pocketing it in his mouth Head exam: PRESENT: other - He had a small lump on the right side of his occiput and a bruise to the right side of his face Eye exam: PRESENT: EOMI, PERRLA. ABSENT: conjunctival injection, nystagmus, scleral icterus Ear exam: PRESENT: normal external ear exam Mouth exam: PRESENT: dry mucosa, neck supple, other - As noted above, he still had food in his mouth when he was examined he apparently been chewing on for some time. I told him to swallow and he said "okay" and kept chewing Teeth exam: PRESENT: poor dentation Throat exam: ABSENT: post pharyngeal erythema Neck exam: PRESENT: full ROM. ABSENT: carotid bruit, JVD, lymphadenopathy, meningismus, tenderness, thyromegaly Respiratory exam: PRESENT: clear to auscultation javier, symmetrical, unlabored. ABSENT: accessory muscle use, chest wall tenderness, crackles, prolonged expiratory phas, rhonchi, tachypnea, wheezes Cardiovascular exam: PRESENT: RRR, +S1, +S2 Pulses: PRESENT: normal carotid pulses Vascular exam: PRESENT: normal capillary refill GI/Abdominal exam: PRESENT: normal bowel sounds, soft. ABSENT: distended, g uarding, rebound, tenderness Extremities exam: ABSENT: clubbing, pedal edema Musculoskeletal exam: PRESENT: normal inspection. ABSENT: deformity Neurological exam: PRESENT: alert, awake, oriented to person, CN II-XII grossly intact. ABSENT: oriented to place, oriented to time, oriented to situation Psychiatric exam: PRESENT: flat affect - Pleasant Skin exam: PRESENT: dry, warm Results Laboratory Results: 07/11/19 14:20 07/11/19 14:20 07/11/19 07/11/19 07/11/19 12:15 14:15 14:20 WBC 24.1 H RBC 3.58 L Hgb 11.2 L Hct 36.1 L MCV 101 H MCH 31.4 MCHC 31.1 L RDW 14.2 H Plt Count 319 Seg Neutrophils % Not Reportable VBG pH VBG pCO2 VBG HCO3 VBG Base Excess Sodium 127.2 L Potassium 6.1 H* Chloride 87 L Carbon Dioxide 8 L* Anion Gap 32 H BUN 43 H Creatinine 2.05 H Est GFR ( Amer) 38 L Glucose 928 H* Lactic Acid 2.1 Calcium 9.3 Total Bilirubin AST Alkaline Phosphatase Total Protein Albumin Urine Color Urine Appearance Urine pH Ur Specific [place] Urine Protein Urine Glucose (UA) Urine Ketones Urine Blood Urine Nitrite Ur Leukocyte Esterase 07/11/19 07/11/19 07/11/19 14:20 14:20 14:49 WBC RBC Hgb Hct MCV MCH MCHC RDW Plt Count Seg Neutrophils % VBG pH 7.15 L* VBG pCO2 31.4 L VBG HCO3 10.6 L VBG Base Excess -17.0 Sodium 126.3 L Potassium 6.2 H* Chloride 85 L Carbon Dioxide 11 L Anion Gap 30 H BUN 47 H Creatinine 2.13 H Est GFR ( Amer) 36 L Glucose 979 H* Lactic Acid Calcium 8.9 Total Bilirubin 0.9 AST 35 Alkaline Phosphatase 116 Total Protein 7.0 Albumin 4.0 Urine Color YELLOW Urine Appearance CLOUDY Urine pH 5.0 Ur Specific [place] 1.017 Urine Protein 100 H Urine Glucose (UA) >=500 H Urine Ketones 20 H Urine Blood SMALL H Urine Nitrite NEGATIVE Ur Leukocyte Esterase LARGE H Impressions: Cervical Spine CT 07/10/19 20:54 IMPRESSION: No fracture or subluxation. Moderate multilevel degenerative changes. Head CT 07/10/19 20:54 IMPRESSION: No acute intracranial hemorrhage. Mild chronic ischemic changes. Chest X-Ray 07/11/19 13:59 IMPRESSION: NO ACUTE RADIOGRAPHIC FINDING IN THE CHEST. Assessment and Plan - Diagnosis (1) DKA (diabetic ketoacidoses) Qualifiers: Diabetes mellitus type: type 2 Diabetes mellitus complication detail: without coma Qualified Code(s): E11.10 - Type 2 diabetes mellitus with ketoacidosis without coma Is this a current diagnosis for this admission?: Yes Plan: He looks a lot worse on paper than he does in person. His labs were repeated to make sure it was not a lab error and he has numerous derangements. Put him on some IV fluids and insulin drip and check a metabolic panel every 4 hours. We will adjust his fluids and electrolytes according to his metabolic panels. (2) Acute kidney injury Is this a current diagnosis for this admission?: Yes Plan: Due to his dehydration. We will give him some IV fluids and monitor his urine output and his electrolytes. (3) Dehydration Is this a current diagnosis for this admission?: Yes Plan: IV fluids as noted above (4) Hyperkalemia Is this a current diagnosis for this admission?: Yes Plan: Due to the DKA. I anticipate this to correct with fluids and insulin. (5) Chronic atrial fibrillation Is this a current diagnosis for this admission?: Yes Plan: He was on a regular rhythm when I listen to him. We will keep him on his home medications once they are confirmed by the pharmacy. (6) Dementia Qualifiers: Dementia type: unspecified type Dementia behavioral disturbance: without behavioral disturbance Qualified Code(s): F03.90 - Unspecified dementia without behavioral disturbance Is this a current diagnosis for this admission?: Yes Plan: He carries a history of dementia and he has some degree of cognitive impairment. He was alert to person but not to place or situation. I am not sure what he was like last night, but he was documented as being alert and oriented x3 when transport was refused and when the [facility] department came to see him. - Time Time Spent with patient: 35 or more minutes - Inpatient Certification Based on my medical assessment, after consideration of the patient's comorbidities, presenting symptoms, or acuity I expect that the services needed warrant INPATIENT care.: Yes I certify that my determination is in accordance with my understanding of Medicare's requirements for reasonable and necessary INPATIENT services [42 CFR 412.3e].: Yes Medical Necessity: Significant Comorbidiites Make Outpatient Treatment Too Risky, Need Close Monitoring Due to Risk of Patient Decompensation, Need For IV Fluids, Need For Continuous Telemetry Monitoring, Risk of Complication if Not Cared For in Hospital
[2019-07-11] MEDS ORDERED: LORAZEPAM INJ 2 MG/1 ML VIAL ONE (19:33)
[2019-07-11 21:01] LABS: ANION GAP 19 (5-19); BLOOD UREA NITROGEN 52 mg/dL (7-20); CALCIUM 8.3 mg/dL (8.4-10.2); CARBON DIOXIDE 18 mmol/L (22-30); CHLORIDE 91 mmol/L (98-107)
[2019-07-11 21:12] LABS: GLUCOSE 638 mg/dL (75-110); POTASSIUM 4.5 mmol/L (3.6-5.0)
[2019-07-11] MEDS ORDERED: POTASSI CL 20 MEQ/50 ML RIDER 40 MEQ/100 ML RTUPB IV ONE (21:50)
[2019-07-11] MEDS: HEPARIN SOD (PORCINE) 5,000 UNIT/ML 1 ML VIAL SUBCUT SCH (21:52)
[2019-07-11] MEDS: POTASSIUM CHLORIDE 20 MEQ/50 ML RTU IV SCH (21:58)
[2019-07-11] MEDS ORDERED: ATORVASTATIN CALCIUM 80 MG TABLET PO SCH (22:00)
[2019-07-12 00:14] LABS: ANION GAP 11 (5-19); BLOOD UREA NITROGEN 52 mg/dL (7-20); CALCIUM 8.1 mg/dL (8.4-10.2); CARBON DIOXIDE 23 mmol/L (22-30); CHLORIDE 97 mmol/L (98-107); GLUCOSE 383 mg/dL (75-110)
[2019-07-12] MEDS: POTASSIUM CHLORIDE 20 MEQ/50 ML RTU IV SCH (00:28)
[2019-07-12] MEDS ORDERED: POTASSI CL 20 MEQ/D5-1/2NS 1L 1,000 ML IV ONE (03:26)
[2019-07-12] MEDS ORDERED: POTASSI CL 20 MEQ/D5-1/2NS 1L 1000 ML IV PRN (03:34)
[2019-07-12 04:22] LABS: ANION GAP 9 (5-19); BLOOD UREA NITROGEN 49 mg/dL (7-20); CALCIUM 8.2 mg/dL (8.4-10.2); CARBON DIOXIDE 24 mmol/L (22-30); CHLORIDE 102 mmol/L (98-107); GLUCOSE 136 mg/dL (75-110); PHOSPHORUS 4.2 mg/dL (2.5-4.5); POTASSIUM 3.9 mmol/L (3.6-5.0)
[2019-07-12 04:25] LABS: HEMATOCRIT 32.9 % (37.9-51.0); HEMOGLOBIN 11.5 g/dL (13.5-17.0); MEAN CORPUSCULAR HGB CONC 34.9 g/dL (32.0-36.0); PLATELET COUNT 237 10^3/uL (150-450); RED BLOOD COUNT 3.69 10^6/uL (4.35-5.55); RED CELL DISTRIBUTION WIDTH 13.4 % (11.5-14.0)
[2019-07-12 05:09] LABS: MEAN CORPUSCULAR VOLUME 89 fl (80-97)
[2019-07-12] MEDS: HEPARIN SOD (PORCINE) 5,000 UNIT/ML 1 ML VIAL SUBCUT SCH ×3 (05:28→21:08)
[2019-07-12] MEDS: NORMAL SALINE 1000 ML 1,000 ML IV PRN ×4 (05:30→18:21)
[2019-07-12] MEDS ORDERED: INSULIN LISPRO 100 UNIT/ML 3 ML VIAL ONE (07:52)
[2019-07-12] MEDS: HUM INSULIN NPH/REG INSULIN HM 100 UNIT/1 ML 3 ML SUBCUT SCH ×2 (07:57→15:31)
[2019-07-12] MEDS ORDERED: DEXTROSE 50%-WATER 25 GM/50 ML DISP.SYRIN IV PRN ×2 (09:27)
[2019-07-12] MEDS ORDERED: DEXTROSE 40% GEL 15 GM TUBE PO PRN ×2 (09:27)
[2019-07-12] MEDS ORDERED: GLUCAGON,HUMAN RECOMB 1 MG INJ IM PRN (09:27)
[2019-07-12] MEDS: METFORMIN HCL 500 MG TABLET PO SCH ×2 (09:49→18:19)
[2019-07-12] MEDS: CLOPIDOGREL BISULFATE 75 MG TABLET PO SCH (09:49)
[2019-07-12] MEDS: MEMANTINE HCL 10 MG TABLET PO SCH ×2 (09:49→18:19)
[2019-07-12] MEDS: CITALOPRAM HYDROBROMIDE 20 MG TABLET PO SCH (09:49)
[2019-07-12] MEDS: METOPROLOL TARTRATE 25 MG TABLET PO SCH ×2 (09:49→21:08)
[2019-07-12] MEDS: LISINOPRIL 5 MG TABLET PO SCH (09:49)
[2019-07-12] MEDS: ATORVASTATIN CALCIUM 80 MG TABLET PO SCH (09:50)
[2019-07-12] MEDS ORDERED: (PENDING PHARMACY ID) (Lisinopril [Prinivil 2.5 Mg Tablet] 2.5 MG) PO SCH (10:00)
[2019-07-12] MEDS ORDERED: (PENDING PHARMACY ID) (Citalopram Hydrobromide [Citalopram Hbr] 40 MG) PO SCH (10:00)
[2019-07-12 11:06] LABS: ANION GAP 12 (5-19); BLOOD UREA NITROGEN 38 mg/dL (7-20); CALCIUM 8.1 mg/dL (8.4-10.2); CARBON DIOXIDE 20 mmol/L (22-30); CHLORIDE 102 mmol/L (98-107); GLUCOSE 278 mg/dL (75-110); POTASSIUM 3.8 mmol/L (3.6-5.0)
[2019-07-12] MEDS: INSULIN LISPRO 100 UNIT/ML 3 ML VIAL SUBCUT SCH ×2 (12:20→18:27)
[2019-07-12 12:45] LABS: ANION GAP 9 (5-19); BLOOD UREA NITROGEN 39 mg/dL (7-20); CALCIUM 7.9 mg/dL (8.4-10.2); CARBON DIOXIDE 20 mmol/L (22-30); CHLORIDE 105 mmol/L (98-107); GLUCOSE 230 mg/dL (75-110); POTASSIUM 4.1 mmol/L (3.6-5.0)
--- NOTE | 2019-07-12 17:24 | PDOC PROGRESS REPORT ---
Subjective Progress Note for:: 07/12/19 Subjective:: No adverse events overnight. He is been a little bit combative at times but is able to be reoriented. I suspect that mainly he is just anxious by being out of his usual setting. His electrolytes and glucose have corrected and he is off the insulin drip now. Reason For Visit: DKA,NORMA,HYPERKALEMIA Physical Exam Vital Signs: Temp Pulse Resp BP Pulse Ox 97.3 F 76 18 135/46 H 96 07/12/19 11:25 07/12/19 14:00 07/12/19 11:25 07/12/19 11:25 07/12/19 11:25 Intake & Output 07/11/19 07/12/19 07/13/19 06:59 06:59 06:59 Intake Total 1979 2598 Balance 1979 2598 Weight 77.111 kg 74.2 kg General appearance: PRESENT: no acute distress, cooperative, disheveled Respiratory exam: PRESENT: clear to auscultation javier, symmetrical, unlabored. ABSENT: accessory muscle use, chest wall tenderness, crackles, prolonged expiratory phas, rhonchi, tachypnea, wheezes Cardiovascular exam: PRESENT: RRR, +S1, +S2 Pulses: PRESENT: normal carotid pulses Vascular exam: PRESENT: normal capillary refill GI/Abdominal exam: PRESENT: normal bowel sounds, soft. ABSENT: distended, guarding, rebound, tenderness Extremities exam: ABSENT: clubbing, pedal edema Musculoskeletal exam: PRESENT: normal inspection. ABSENT: deformity Neurological exam: PRESENT: alert, awake, oriented to person Psychiatric exam: PRESENT: flat affect - Pleasant Skin exam: PRESENT: dry, warm Results Laboratory Results: 07/12/19 03:58 07/12/19 11:53 07/11/19 07/11/19 07/11/19 20:02 20:02 20:42 WBC RBC Hgb Hct MCV MCH MCHC RDW Plt Count Sodium Cancelled 127.9 L Potassium Cancelled 4.5 D Chloride Cancelled 91 L Carbon Dioxide Cancelled 18 L Anion Gap Cancelled 19 BUN Cancelled 52 H Creatinine Cancelled 1.87 H Est GFR ( Amer) Cancelled 42 L Est GFR (Non-Af Amer) Cancelled Glucose Cancelled 638 H* Lactic Acid 3.5 H Calcium Cancelled 8.3 L Phosphorus Magnesium 09/10/1707/12/19 07/12/19 23:50 03:58 03:58 WBC 21.0 H RBC 3.69 L Hgb 11.5 L Hct 32.9 L MCV 89 D MCH 31.0 MCHC 34.9 RDW 13.4 Plt Count 237 Sodium 130.7 L 135.1 L Potassium 4.0 3.9 Chloride 97 L 102 Carbon Dioxide 23 24 Anion Gap 11 9 BUN 52 H 49 H Creatinine 1.59 H 1.36 H Est GFR ( Amer) 51 L > 60 Est GFR (Non-Af Amer) Glucose 383 H 136 H Lactic Acid Calcium 8.1 L 8.2 L Phosphorus 4.2 Magnesium 1.6 07/12/19 07/12/19 10:17 11:53 WBC RBC Hgb Hct MCV MCH MCHC RDW Plt Count Sodium 134.3 L 133.8 L Potassium 3.8 4.1 Chloride 102 105 Carbon Dioxide 20 L 20 L Anion Gap 12 9 BUN 38 H 39 H Creatinine 1.11 1.01 Est GFR ( Amer) > 60 > 60 Est GFR (Non-Af Amer) Glucose 278 H 230 H Lactic Acid Calcium 8.1 L 7.9 L Phosphorus Magnesium Impressions: Cervical Spine CT 07/10/19 20:54 IMPRESSION: No fracture or subluxation. Moderate multilevel degenerative changes. Head CT 07/10/19 20:54 IMPRESSION: No acute intracranial hemorrhage. Mild chronic ischemic changes. Chest X-Ray 07/11/19 13:59 IMPRESSION: NO ACUTE RADIOGRAPHIC FINDING IN THE CHEST. Assessment and Plan - Diagnosis (1) DKA (diabetic ketoacidoses) Qualifiers: Diabetes mellitus type: type 2 Diabetes mellitus complication detail: without coma Qualified Code(s): E11.10 - Type 2 diabetes mellitus with ketoacidosis without coma Is this a current diagnosis for this admission?: Yes Plan: Resolved. Off insulin drip now. Back on a basal bolus regimen. Blood sugar control has been acceptable. (2) Acute kidney injury Is this a current diagnosis for this admission?: Yes Plan: Resolved. Creatinine in the normal range (3) Dehydration Is this a current diagnosis for this admission?: Yes Plan: Resolved (4) Hyperkalemia Is this a current diagnosis for this admission?: Yes Plan: Resolved (5) Chronic atrial fibrillation Is this a current diagnosis for this admission?: Yes Plan: Still sounded regular when I listen to them today. Rate is controlled. Is anticoagulated. (6) Dementia Qualifiers: Dementia type: unspecified type Dementia behavioral disturbance: without behavioral disturbance Qualified Code(s): F03.90 - Unspecified dementia without behavioral disturbance Is this a current diagnosis for this admission?: Yes Plan: I believe his mental status is at its baseline. - Time Time Spent with patient: 15-24 minutes
[2019-07-12] MEDS: CEFTRIAXONE 1 GM/D5W RTU 1 GM/50 ML RTUPB IV SCH (18:19)
[2019-07-12] MEDS ORDERED: ACETAMINOPHEN 325 MG TABLET PO PRN (20:48)
[2019-07-13] MEDS: NORMAL SALINE 1000 ML 1,000 ML IV PRN ×5 (00:22→17:37)
[2019-07-13] MEDS: INSULIN LISPRO 100 UNIT/ML 3 ML VIAL SUBCUT SCH ×4 (00:22→12:32)
[2019-07-13] MEDS: HEPARIN SOD (PORCINE) 5,000 UNIT/ML 1 ML VIAL SUBCUT SCH ×2 (05:00→13:22)
[2019-07-13 06:32] LABS: PHOSPHORUS 2.6 mg/dL (2.5-4.5)
[2019-07-13] MEDS ORDERED: MAGNESIUM SULFATE/D5W 1 GM/100 ML RTUPB IV ONE (08:45)
[2019-07-13] MEDS: LISINOPRIL 5 MG TABLET PO SCH (09:08)
[2019-07-13] MEDS: CEFTRIAXONE 1 GM/D5W RTU 1 GM/50 ML RTUPB IV SCH (09:08)
[2019-07-13] MEDS: MEMANTINE HCL 10 MG TABLET PO SCH ×2 (09:09→17:34)
[2019-07-13] MEDS: ATORVASTATIN CALCIUM 80 MG TABLET PO SCH (09:09)
[2019-07-13] MEDS: CITALOPRAM HYDROBROMIDE 20 MG TABLET PO SCH (09:09)
[2019-07-13] MEDS: CLOPIDOGREL BISULFATE 75 MG TABLET PO SCH (09:09)
[2019-07-13] MEDS: METOPROLOL TARTRATE 25 MG TABLET PO SCH (09:09)
[2019-07-13] MEDS: METFORMIN HCL 500 MG TABLET PO SCH ×2 (09:09→17:34)
[2019-07-13] MEDS: HUM INSULIN NPH/REG INSULIN HM 100 UNIT/1 ML 3 ML SUBCUT SCH ×2 (09:09→17:34)
[2019-07-13] MEDS ORDERED: INSULIN LISPRO 100 UNIT/ML 3 ML VIAL ONE (12:29)
[2019-07-13] MEDS ORDERED: LORAZEPAM INJ 2 MG/1 ML VIAL ONE (13:44)
--- NOTE | 2019-07-13 15:36 | PDOC DISCHARGE SUMMARY ---
General - Admit/Disc Date/PCP Admission Date/Primary Care Provider: 07/11/19 17:44 ROSA JEAN MD Discharge Date: 07/13/19 - Discharge Diagnosis (1) DKA (diabetic ketoacidoses) Is this a current diagnosis for this admission?: Yes Summary: Responded very well to insulin drip and IV fluids. (2) Acute kidney injury Is this a current diagnosis for this admission?: Yes Summary: Resolved with IV fluids (3) Dehydration Is this a current diagnosis for this admission?: Yes Summary: Resolved with IV fluids (4) Hyperkalemia Is this a current diagnosis for this admission?: Yes Summary: Due to his DKA, resolved with insulin drip and IV fluids (5) Chronic atrial fibrillation Is this a current diagnosis for this admission?: Yes Summary: Rate controlled, has been mostly in a sinus rhythm for me (6) Dementia Is this a current diagnosis for this admission?: Yes Summary: He has been at baseline (7) UTI due to Klebsiella species Is this a current diagnosis for this admission?: Yes Summary: Being treated with Keflex - Additional Information Resuscitation Status: Full Code Discharge Diet: Cardiac, Diabetic Discharge Activity: Balance Activity w/Rest, Supervised Activity Prescriptions: Cephalexin Monohydrate [Keflex 500 mg Capsule] 500 mg PO TID #15 capsule Home Medications: Atorvastatin Calcium [Lipitor 80 mg Tablet] 80 mg PO DAILY 02/18/19 Citalopram Hydrobromide [Citalopram HBr] 40 mg PO DAILY 02/18/19 Clopidogrel Bisulfate [Plavix 75 mg Tablet] 75 mg PO DAILY 02/18/19 Lisinopril [Prinivil 2.5 mg Tablet] 2.5 mg PO DAILY 02/18/19 Memantine HCl [Namenda 10 mg Tablet] 10 mg PO BID 02/18/19 Metformin HCl [Glucophage 500 mg Tablet] 500 mg PO BID 02/18/19 Metoprolol Tartrate [Lopressor 25 mg Tablet] 25 mg PO Q12 02/18/19 Hum Insulin NPH/Reg Insulin Hm [Insulin 70-30 (NPH/Reg) 100 unit/mL] 18 unit SUBCUT BIDACBS #1 unit 02/22/19 Cephalexin Monohydrate [Keflex 500 mg Capsule] 500 mg PO TID #15 capsule 06/30 02/15 History of Present Illness History of Present Illness: SENTHIL WALDEN JR is a 83 year old male with an uncertain degree of cognitive impairment who is an insulin-dependent diabetic and lives full-time at the [facility] in [place] where his family had him placed because he said they could not take care of him at home. He was brought in some time yesterday after a fall at the assisted living facility. He had a bump on his head and so they scanned his head and cervical spine and, both tests were unremarkable. Last night they checked his blood sugar and it was around 110. They were going to send him home but the patient was refusing to go back, saying he wanted to go home. They called the ambulance service for transport and they said they could not take him because they claim the patient was alert and oriented x3. They then called the patient's son who refused to take him back because he said he could not take care of him. He then called [facility] and they said that it was out of their jurisdiction. Call the [facility]'s department who came to see the patient and talk to him and then said there was nothing they can do because they said that he was alert and oriented x4. The home health care case manager talk to them and was able to convince him to go back over there as long as she promised to call and check on him once a week which she did. They were arranging transport when they went to give him his medicines. He said he did not want to take any of his medicines until he ate. They checked his blood sugar and it was substantially elevated. They try to get his blood sugar back under control and put the transport on hold until such time as his blood sugar was reasonable. It kept reading "high." The patient was acting his usual self and was asymptomatic. He did get a little sick to his stomach this morning and apparently had one episode of vomiting and diarrhea. At this point they decided to check some labs on him, and he was noted to have multiple metabolic derangements consistent with DKA. Apparently the patient had nothing to eat overnight per nursing report. He is being admitted for DKA, hyperkalemia, acute kidney injury, and dehydration. Hospital Course Hospital Course: I am not exactly sure how he went from a glucose of 110 at approximately 2130 hrs. and was in DKA 12 to 14 hours later. Nonetheless, his metabolic derangements responded well to insulin drip and IV fluids. He did have some behavioral issues which are normal for him, but he has mostly been redirectable. We transition him to his home insulin regimen and he responded well. His comorbid conditions were managed with his home medications and were not acutely exacerbated during this hospitalization. His labs and examination were reassuring and he was discharged in good condition. Physical Exam Vital Signs: Temp Pulse Resp BP Pulse Ox 97.3 F 78 18 155/60 H 98 07/13/19 12:00 07/13/19 14:00 07/13/19 12:00 07/13/19 12:00 07/13/19 12:00 Intake & Output 07/12/19 07/13/19 07/14/19 06:59 06:59 06:59 Intake Total 1979 5557 2022 Output Total 750 Balance 1979 4807 2022 Weight 74.2 kg 76 kg General appearance: PRESENT: no acute distress, cooperative, disheveled Respiratory exam: PRESENT: clear to auscultation javier, symmetrical, unlabored. ABSENT: accessory muscle use, chest wall tenderness, crackles, prolonged expiratory phas, rhonchi, tachypnea, wheezes Cardiovascular exam: PRESENT: RRR, +S1, +S2 Pulses: PRESENT: normal carotid pulses Vascular exam: PRESENT: normal capillary refill GI/Abdominal exam: PRESENT: normal bowel sounds, soft. ABSENT: distended, guarding, rebound, tenderness Extremities exam: ABSENT: clubbing, pedal edema Musculoskeletal exam: PRESENT: normal inspection. ABSENT: deformity Neurological exam: PRESENT: alert, awake, oriented to person Psychiatric exam: PRESENT: flat affect - Pleasant Skin exam: PRESENT: dry, warm Results Laboratory Results: 07/12/19 03:58 07/12/19 11:53 07/13/19 05:56 Phosphorus 2.6 Magnesium 1.5 L 07/11/19 14:49 Clean Catch Midstream Urine Culture - Final Klebsiella Oxytoca Impressions: Cervical Spine CT 07/10/19 20:54 IMPRESSION: No fracture or subluxation. Moderate multilevel degenerative changes. Head CT 07/10/19 20:54 IMPRESSION: No acute intracranial hemorrhage. Mild chronic ischemic changes. Chest X-Ray 07/11/19 13:59 IMPRESSION: NO ACUTE RADIOGRAPHIC FINDING IN THE CHEST. Qualifiers - * PATIENT BEING DISCHARGED WITH ANY OF THE FOLLOWING DIAGNOSIS: No Acute Heart Failure - Is this a Heart Failure Patient?: No Plan Time Spent: Greater than 30 Minutes
[2019-07-13] MEDS ORDERED: INSULIN LISPRO 100 UNIT/ML 3 ML VIAL SUBCUT SCH (16:00)
[2019-07-13 23:34] VITALS: BP 163/77
== END 2019-07-13 20:00 | DRG 638 ==
LOC: ER 19:37 → EH 07-11 17:44 → 3W 07-11 19:22
PROVIDERS: ADMIT Family Medicine; ATTEND Family Medicine
DX: E11.10 Type 2 diabetes mellitus with ketoacidosis without coma (principal); N17.9 Acute kidney failure, unspecified; N39.0 Urinary tract infection, site not specified; E87.5 Hyperkalemia; E86.0 Dehydration; I48.2 Chronic atrial fibrillation; F03.90 Unspecified dementia, unspecified severity, without behavioral disturbance, psychotic disturbance, mood disturbance, and anxiety; B96.1 Klebsiella pneumoniae [K. pneumoniae] as the cause of diseases classified elsewhere; I25.10 Atherosclerotic heart disease of native coronary artery without angina pectoris; I10 Essential (primary) hypertension; F32.9 Major depressive disorder, single episode, unspecified; W19.XXXA Unspecified fall, initial encounter; E78.00 Pure hypercholesterolemia, unspecified; F41.9 Anxiety disorder, unspecified; I25.2 Old myocardial infarction; Z78.1 Physical restraint status; Z79.4 Long term (current) use of insulin; Z79.899 Other long term (current) drug therapy; Z88.6 Allergy status to analgesic agent; Z91.11 Patient's noncompliance with dietary regimen; Z95.5 Presence of coronary angioplasty implant and graft; Z83.3 Family history of diabetes mellitus; Z82.49 Family history of ischemic heart disease and other diseases of the circulatory system
CPT/HCPCS: 36415; 70450; 71045; 72125; 80048; 81001; 82803; 82962; 83036; 83605; 83735; 84100; 85025; 85027; 87040; 87070; 87086; 87088; 87186; 96365; 99285; J0696; J1644; J1815; J2060; J3475; J3480; J7030

== ENCOUNTER 2019-07-15 10:26 | Inpatient (IN) | payer MEDICARE, OTHER ==
[2019-07-15] MEDS ORDERED: CEFTRIAXONE INJ 1000 MG VIAL IV ONE (10:32)
--- NOTE | 2019-07-15 10:37 | ER Document Report ---
ED General - General Stated Complaint: ALTERED MENTAL STATUS Time Seen by Provider: 07/15/19 10:31 Notes: 83 year old male arrives via EMS after a call to them for hyperglycmia. He was disoriented for them with hyperglycemia and hypotension. Given about 500 LR with SBP improved to approximately 100. He is a bit of a difficult historian with the history being limited by dementia. TRAVEL OUTSIDE OF THE [place] IN LAST 30 DAYS: No - HPI Onset: This morning Onset/Duration: Sudden Quality of pain: No pain Severity: Moderate Associated symptoms: None - Related Data Allergies/Adverse Reactions: propoxyphene [From Darvon] Adverse Reaction (Verified 02/18/19 09:51) Past Medical History - General Information source: Patient, Outside Facility Records - Social History Smoking Status: Unknown if Ever Smoked Family History: CAD, DM, Other - Not obtainable due to patient condition - Past Medical History Cardiac Medical History: Reports: Hx Congestive Heart Failure, Hx Coronary Artery Disease, Hx Heart Attack - per family, Hx Hypercholesterolemia, Hx Hypertension Pulmonary Medical History: Denies: Hx Tuberculosis Endocrine Medical History: Reports: Hx Diabetes Mellitus Type 2 Renal/ Medical History: Denies: Hx Peritoneal Dialysis Musculoskeletal Medical History: Reports Hx Arthritis, Reports Hx Musculoskeletal Deformity, Reports Hx Musculoskeletal Trauma Skin Medical History: Denies Hx Eczema, Denies Hx Psoriasis Psychiatric Medical History: Reports: Hx Anxiety, Hx Dementia, Hx Depression, Hx Schizophrenia Past Surgical History: Reports: Hx Appendectomy, Hx Cardiac Surgery - stent - Immunizations Hx Diphtheria, Pertussis, Tetanus Vaccination: Yes Hx Pneumococcal Vaccination: 12/08/13 Review of Systems - Review of Systems Constitutional: No symptoms reported EENT: No symptoms reported Cardiovascular: No symptoms reported Respiratory: No symptoms reported Gastrointestinal: No symptoms reported Genitourinary: No symptoms reported Male Genitourinary: No symptoms reported Musculoskeletal: No symptoms reported Skin: No symptoms reported Hematologic/Lymphatic: No symptoms reported Neurological/Psychological: No symptoms reported Physical Exam - Vital signs Vitals: Resp 07/15/19 10:29 Interpretation: Normal - General General appearance: Appears well, Alert - HEENT Head: Normocephalic, Atraumatic Eyes: Normal Pupils: PERRL - Respiratory Respiratory status: No respiratory distress Chest status: Nontender Breath sounds: Normal Chest palpation: Normal - Cardiovascular Rhythm: Regular Heart sounds: Normal auscultation Murmur: No - Abdominal Inspection: Normal Distension: No distension Bowel sounds: Normal Tenderness: Nontender Organomegaly: No organomegaly - Back Back: Normal, Nontender - Extremities General upper extremity: Normal inspection, Nontender, Normal color, Normal ROM, Normal temperature General lower extremity: Normal inspection, Nontender, Normal color, Normal ROM, Normal temperature, Normal weight bearing. No: Arnulfo's sign - Neurological Neuro grossly intact: Yes Cognition: Normal Orientation: AAOx4 Howard Coma Scale Eye Opening: Spontaneous Anthony Coma Scale Verbal: Oriented Anthony Coma Scale Motor: Obeys Commands Howard Coma Scale Total: 15 Speech: Normal Motor strength normal: LUE, RUE, LLE, RLE Sensory: Normal - Psychological Associated symptoms: Normal affect, Normal mood - Skin Skin Temperature: Warm Skin Moisture: Dry Skin Color: Normal Course - Re-evaluation Re-evalutation: 07/15/19 13:33 MDM 83 year old male with mild acidosis increased gap and hyperglycemia. K a bit low too. Lactic was mildly elevated and given IV fluid for that. I have discussed with Dr. Milligan and he will see and evaluate for admission. - Vital Signs Vital signs: Temp Pulse Resp BP Pulse Ox 97.9 F 17 122/57 L 98 07/15/19 10:49 07/15/19 13:01 07/15/19 13:01 07/15/19 13:01 - Laboratory Result Diagrams: 07/15/19 10:39 07/15/19 10:39 Laboratory results interpreted by me: 07/15/19 07/15/19 07/15/19 10:39 10:39 10:39 RBC 3.26 L Hgb 10.2 L Hct 30.0 L Lymph % (Auto) 12.4 L VBG pH VBG HCO3 Sodium 134.8 L Potassium 3.5 L Carbon Dioxide 18 L Glucose 404 H* POC Glucose Lactic Acid 2.2 H Total Protein 4.9 L Albumin 2.6 L Urine Protein Urine Glucose (UA) Urine Ketones Urine Blood Ur Leukocyte Esterase 07/15/19 07/15/19 07/15/19 10:39 10:43 10:49 RBC Hgb Hct Lymph % (Auto) VBG pH 7.28 L VBG HCO3 16.1 L Sodium Potassium Carbon Dioxide Glucose POC Glucose 423 H* Lactic Acid Total Protein Albumin Urine Protein 100 H Urine Glucose (UA) >=1000 H Urine Ketones 100 H Urine Blood SMALL H Ur Leukocyte Esterase TRACE H - Diagnostic Test Radiology reviewed: Image reviewed Critical Care Note - Critical Care Note Total time excluding time spent on procedures (mins): 30 Discharge - Discharge Clinical Impression: Hypokalemia Diabetes Qualifiers: Diabetes mellitus type: type 2 Diabetes mellitus senior care insulin use: with bed bug exterminator use Diabetes mellitus complication status: with ketoacidosis Diabetes mellitus complication detail: without coma Qualified Code(s): E11.10 - Type 2 diabetes mellitus with ketoacidosis without coma UTI (urinary tract infection) Qualifiers: Urinary tract infection type: site unspecified Hematuria presence: with hematuria Qualified Code(s): N39.0 - Urinary tract infection, site not specified Condition: Fair Disposition: ADMITTED INPATIENT Admitting Provider: Srini (Hospitalist) Unit Admitted: Telemetry
[2019-07-15 10:53] LABS: ABSOLUTE BASOPHILS # (AUTO) 0.1 10^3/uL (0.0-0.2); ABSOLUTE EOSINOPHILS # (AUTO) 0.1 10^3/uL (0.0-0.6); ABSOLUTE LYMPHOCYTES (AUTO) 0.8 10^3/uL (0.5-4.7); ABSOLUTE MONOCYTES (AUTO) 0.6 10^3/uL (0.1-1.4); ABSOLUTE NEUT (AUTO) 4.9 10^3/uL (1.7-8.2); BASOPHILS % (AUTO) 0.8 % (0-2); EOSINOPHILS % (AUTO) 1.4 % (0-6); HEMOGLOBIN 10.2 g/dL (13.5-17.0); LYMPHOCYTES % (AUTO) 12.4 % (13-45); MEAN CORPUSCULAR HEMOGLOBIN 31.2 pg (27.0-33.4); MEAN CORPUSCULAR HGB CONC 33.9 g/dL (32.0-36.0); MEAN CORPUSCULAR VOLUME 92 fl (80-97); MONOCYTES % (AUTO) 9.8 % (3-13); PLATELET COUNT 186 10^3/uL (150-450); RED BLOOD COUNT 3.26 10^6/uL (4.35-5.55); RED CELL DISTRIBUTION WIDTH 13.5 % (11.5-14.0); SEGMENTED NEUTROPHILS % (AUTO) 75.6 % (42-78); TOTAL CELLS COUNTED % (AUTO) 100 %; WHITE BLOOD COUNT 6.5 10^3/uL (4.0-10.5)
[2019-07-15 10:58] LABS: INTERNATIONAL RATION (INR) 1.07; PROTHROMBIN TIME 13.9 SEC (11.4-15.4)
[2019-07-15 11:03] LABS: VENOUS BLOOD BASE EXCESS -9.7 mmol/L; VENOUS BLOOD HCO3 16.1 mmol/L (20-32); VENOUS BLOOD PCO2 35.1 mmHg (35-63); VENOUS BLOOD PH 7.28 (7.30-7.42)
[2019-07-15 11:13] LABS: ALBUMIN 2.6 g/dL (3.5-5.0); ALKALINE PHOSPHATASE 103 U/L (38-126); ANION GAP 16 (5-19); ASPARTATE AMINO TRANSFERASE 26 U/L (17-59); BILIRUBIN,DIRECT 0.2 mg/dL (0.0-0.4); BILIRUBIN,TOTAL 0.7 mg/dL (0.2-1.3); BLOOD UREA NITROGEN 17 mg/dL (7-20); CALCIUM 8.5 mg/dL (8.4-10.2); CARBON DIOXIDE 18 mmol/L (22-30); CHLORIDE 101 mmol/L (98-107); POTASSIUM 3.5 mmol/L (3.6-5.0); TOTAL PROTEIN 4.9 g/dL (6.3-8.2)
[2019-07-15 11:22] LABS: GLUCOSE 404 mg/dL (75-110)
[2019-07-15 11:36] LABS: APPEARANCE,URINE CLEAR; BILIRUBIN,URINE NEGATIVE (NEGATIVE); COLOR,URINE STRAW; KETONES,URINE 100 mg/dL (NEGATIVE); LEUKOCYTE ESTERASE,URINE TRACE (NEGATIVE); NITRITE,URINE NEGATIVE (NEGATIVE); PROTEIN,URINE 100 mg/dL (NEGATIVE); UROBILINOGEN,URINE NEGATIVE mg/dL (<2.0)
[2019-07-15 11:38] LABS: GLUCOSE, URINE >=1000 mg/dL (NEGATIVE); URINE SPECIFIC GRAVITY 1.024
[2019-07-15] MEDS ORDERED: INSULIN REG, HUMAN 100 UNIT/ML 3 ML VIAL (PYX) IV ONE (12:43)
[2019-07-15] MEDS ORDERED: POTASSIUM CHLORIDE 20 MEQ PACKET PO ONE (12:43)
--- NOTE | 2019-07-15 13:37 | EKG REPORT ---
SEVERITY:- ABNORMAL ECG - SINUS RHYTHM MULTIFORM VENTRICULAR PREMATURE COMPLEXES RIGHT BUNDLE BRANCH BLOCK : Confirmed by: Clayton Hilton MD 15-Jul-2019 13:37:00
--- NOTE | 2019-07-15 13:55 | RADIOLOGY REPORT (SQ) ---
EXAM DESCRIPTION: CHEST SINGLE VIEW COMPLETED DATE/TIME: 07/15/2019 1:31 pm REASON FOR STUDY: htn COMPARISON: None. EXAM PARAMETERS: NUMBER OF VIEWS: One view. TECHNIQUE: Single frontal radiographic view of the chest acquired. RADIATION DOSE: NA LIMITATIONS: None. FINDINGS: LUNGS AND PLEURA: Ill-defined opacification in the left base blurs the left hemidiaphragm. MEDIASTINUM AND HILAR STRUCTURES: No masses. Contour normal. HEART AND VASCULAR STRUCTURES: Heart normal in size. Normal vasculature. BONES: No acute findings. HARDWARE: None in the chest. OTHER: No other significant finding. IMPRESSION: Cannot exclude limited left lower lobe pneumonia. TECHNICAL DOCUMENTATION: JOB ID: [id number] [employer]- All Rights Reserved Reading location - IP/workstation name: [email or web address]
[2019-07-15] MEDS ORDERED: DEXTROSE 50%-WATER 25 GM/50 ML DISP.SYRIN IV PRN (15:18)
[2019-07-15] MEDS ORDERED: GLUCAGON,HUMAN RECOMB 1 MG INJ IM PRN (15:18)
[2019-07-15] MEDS ORDERED: DEXTROSE 40% GEL 15 GM TUBE PO PRN ×2 (15:18)
--- NOTE | 2019-07-15 16:28 | PDOC H&P ---
History of Present Illness Admission Date/PCP: 07/15/19 13:49 ROSA JEAN MD History of Present Illness: SENTHIL WALDEN JR is a 83 year old male who lives that [facility] assisted living facility in [place] who was just discharged from here 2 days ago after being admitted for DKA. He has dementia and insulin-dependent diabetes. His last blood sugar was 187 on his home insulin regimen whenever he left here and we were controlling what he was eating. He was sent back over today because he was "not acting right." They checked his blood sugar and it was high. I found out today that while they will make sure he takes his medications, residents' diets are not customized to their medical conditions, and everybody will get fed the same thing. If no one is with him he gets to pick whatever he wants. Apparently they also have activities where candy gets handed out. He is being admitted to try to get his blood sugar under better control and also for us to try to figure out a way to have his diet and other food intake monitored and customized for his diabetes. Past Medical History Cardiac Medical History: Reports: Congestive Heart Failure, Coronary Artery Disease, Myocardial Infarction - per family, Hyperlipidema, Hypertension Pulmonary Medical History: Denies: Tuberculosis Endocrine Medical History: Reports: Diabetes Mellitus Type 2 Musculoskeltal Medical History: Reports: Arthritis Skin Medical History: Denies: Eczema, Psoriasis Psychiatric Medical History: Reports: Dementia, Depression Hematology: Denies: Anemia, Sickle Cell Disease Past Surgical History Past Surgical History: Reports: Appendectomy Social History Smoking Status: Unknown if Ever Smoked Frequency of Alcohol Use: Occasional Hx Recreational Drug Use: No Drugs: None Hx Prescription Drug Abuse: No Family History Family History: CAD, DM, Other - Not obtainable due to patient condition Parental Family History Reviewed: No - Unreliable historian Children Family History Reviewed: No - Unreliable historian Sibling(s) Family History Reviewed.: No - Viable historian Medication/Allergy Home Medications: Atorvastatin Calcium [Lipitor 80 mg Tablet] 80 mg PO DAILY 02/18/19 Citalopram Hydrobromide [Citalopram HBr] 40 mg PO DAILY 02/18/19 Clopidogrel Bisulfate [Plavix 75 mg Tablet] 75 mg PO DAILY 02/18/19 Lisinopril [Prinivil 2.5 mg Tablet] 2.5 mg PO DAILY 02/18/19 Memantine HCl [Namenda 10 mg Tablet] 10 mg PO BID 02/18/19 Metformin HCl [Glucophage 500 mg Tablet] 500 mg PO BID 02/18/19 Metoprolol Tartrate [Lopressor 25 mg Tablet] 25 mg PO Q12 02/18/19 Hum Insulin NPH/Reg Insulin Hm [Insulin 70-30 (NPH/Reg) 100 unit/mL] 18 unit SUBCUT BIDACBS #1 unit 02/22/19 Cephalexin Monohydrate [Keflex 500 mg Capsule] 500 mg PO TID #15 capsule 07/13/19 Allergies/Adverse Reactions: propoxyphene [From Darvon] Adverse Reaction (Verified 02/18/19 09:51) Review of Systems ROS unobtainable: Due to mental status - Unreliable historian Physical Exam Vital Signs: Temp Pulse Resp BP Pulse Ox 97.9 F 17 122/57 L 98 07/15/19 10:49 07/15/19 13:01 07/15/19 13:01 07/15/19 13:01 Intake & Output 07/14/19 07/15/19 07/16/19 06:59 06:59 06:59 Weight 76.7 kg General appearance: PRESENT: no acute distress, cooperative, disheveled, hard of hearing Head exam: PRESENT: normocephalic, other - He has a resolving bruise on the right side of his face where he fell a few nights ago Eye exam: PRESENT: EOMI, PERRLA. ABSENT: conjunctival injection, scleral icterus Ear exam: PRESENT: normal external ear exam Mouth exam: PRESENT: moist, neck supple Teeth exam: PRESENT: poor dentation Throat exam: ABSENT: post pharyngeal erythema Neck exam: PRESENT: full ROM. ABSENT: carotid bruit, JVD, lymphadenopathy, meningismus, tenderness, thyromegaly Respiratory exam: PRESENT: clear to auscultation javier, symmetrical, unlabored. ABSENT: accessory muscle use, chest wall tenderness, crackles, prolonged expiratory phas, rhonchi, tachypnea, wheezes Cardiovascular exam: PRESENT: RRR, +S1, +S2 Pulses: PRESENT: normal carotid pulses Vascular exam: PRESENT: normal capillary refill GI/Abdominal exam: PRESENT: normal bowel sounds, soft. ABSENT: distended, guarding, rebound, tenderness Extremities exam: ABSENT: clubbing, pedal edema Musculoskeletal exam: PRESENT: normal inspection. ABSENT: deformity Neurological exam: PRESENT: alert, awake, oriented to person. ABSENT: oriented to place, oriented to time, oriented to situation Psychiatric exam: PRESENT: flat affect Skin exam: PRESENT: dry, warm Results Laboratory Results: 07/15/19 10:39 07/15/19 10:39 07/15/19 07/15/19 07/15/19 10:39 10:39 10:39 WBC 6.5 RBC 3.26 L Hgb 10.2 L Hct 30.0 L MCV 92 MCH 31.2 MCHC 33.9 RDW 13.5 Plt Count 186 Seg Neutrophils % 75.6 VBG pH VBG pCO2 VBG HCO3 VBG Base Excess Sodium 134.8 L Potassium 3.5 L Chloride 101 Carbon Dioxide 18 L Anion Gap 16 BUN 17 Creatinine 1.01 Est GFR ( Amer) > 60 Glucose 404 H* Lactic Acid 2.2 H Calcium 8.5 Total Bilirubin 0.7 AST 26 Alkaline Phosphatase 103 Total Protein 4.9 L Albumin 2.6 L Urine Color Urine Appearance Urine pH Ur Specific [place] Urine Protein Urine Glucose (UA) Urine Ketones Urine Blood Urine Nitrite Ur Leukocyte Esterase Urine WBC (Auto) Urine RBC (Auto) 07/15/19 07/15/19 10:39 10:49 WBC RBC Hgb Hct MCV MCH MCHC RDW Plt Count Seg Neutrophils % VBG pH 7.28 L VBG pCO2 35.1 VBG HCO3 16.1 L VBG Base Excess -9.7 Sodium Potassium Chloride Carbon Dioxide Anion Gap BUN Creatinine Est GFR ( Amer) Glucose Lactic Acid Calcium Total Bilirubin AST Alkaline Phosphatase Total Protein Albumin Urine Color STRAW Urine Appearance CLEAR Urine pH 5.0 Ur Specific [place] 1.024 Urine Protein 100 H Urine Glucose (UA) >=1000 H Urine Ketones 100 H Urine Blood SMALL H Urine Nitrite NEGATIVE Ur Leukocyte Esterase TRACE H Urine WBC (Auto) 29 Urine RBC (Auto) 3 Impressions: Chest X-Ray 07/15/19 13:21 IMPRESSION: Cannot exclude limited left lower lobe pneumonia. Assessment and Plan - Diagnosis (1) Uncontrolled diabetes mellitus Qualifiers: Diabetes mellitus type: type 2 Glycemic state: with hyperglycemia Qualified Code(s): E11.65 - Type 2 diabetes mellitus with hyperglycemia Is this a current diagnosis for this admission?: Yes Plan: As noted above, apparently he gets his usual medications but his diet is not regulated, and I suspect there is a large degree of indiscretion. Once we get his blood sugar back under control with his usual insulin plus a sliding scale and regulation of his diet here, we will have to figure out a way to make sure his diet is regulated there for his diabetes so he does not keep coming back to the hospital like this. He has dementia and so he is not going to self regulate. (2) UTI (urinary tract infection) Qualifiers: Urinary tract infection type: site unspecified Hematuria presence: with hematuria Qualified Code(s): N39.0 - Urinary tract infection, site not specified; R31.9 - Hematuria, unspecified Is this a current diagnosis for this admission?: Yes Plan: He grew out a Klebsiella when he was here on his last admission and is on Keflex which will be continued - Time Time Spent with patient: 35 or more minutes - Inpatient Certification Based on my medical assessment, after consideration of the patient's comorbidities, presenting symptoms, or acuity I expect that the services needed warrant INPATIENT care.: Yes I certify that my determination is in accordance with my understanding of Medicare's requirements for reasonable and necessary INPATIENT services [42 CFR 412.3e].: Yes Medical Necessity: Significant Comorbidiites Make Outpatient Treatment Too Risky, Risk of Complication if Not Cared For in Hospital
[2019-07-15] MEDS: INSULIN LISPRO 100 UNIT/ML 3 ML VIAL SUBCUT SCH ×2 (17:42→22:15)
[2019-07-15] MEDS: NORMAL SALINE 1000 ML 1,000 ML IV PRN (22:08)
[2019-07-15] MEDS: HEPARIN SOD (PORCINE) 5,000 UNIT/ML 1 ML VIAL SUBCUT SCH (22:13)
[2019-07-15] MEDS: METOPROLOL TARTRATE 25 MG TABLET PO SCH (22:14)
[2019-07-15] MEDS: RISPERIDONE 0.25 MG TABLET PO SCH (22:14)
[2019-07-15] MEDS: HYDRALAZINE HCL INJ/PF 20 MG/1 ML SDV IV PRN (22:14)
[2019-07-15] MEDS: ATORVASTATIN CALCIUM 80 MG TABLET PO SCH (22:14)
[2019-07-16] MEDS: HEPARIN SOD (PORCINE) 5,000 UNIT/ML 1 ML VIAL SUBCUT SCH ×3 (05:22→21:14)
[2019-07-16 06:24] LABS: ANION GAP 16 (5-19); BLOOD UREA NITROGEN 12 mg/dL (7-20); CALCIUM 9.1 mg/dL (8.4-10.2); CARBON DIOXIDE 18 mmol/L (22-30); CHLORIDE 104 mmol/L (98-107); POTASSIUM 4.4 mmol/L (3.6-5.0)
[2019-07-16 06:33] LABS: GLUCOSE 434 mg/dL (75-110)
[2019-07-16] MEDS: INSULIN LISPRO 100 UNIT/ML 3 ML VIAL SUBCUT SCH ×4 (07:37→21:13)
[2019-07-16] MEDS ORDERED: LORAZEPAM INJ 2 MG/1 ML VIAL ONE ×2 (09:45→10:50)
[2019-07-16] MEDS ORDERED: LORAZEPAM INJ 2 MG/1 ML VIAL IV PRN (09:46)
[2019-07-16] MEDS ORDERED: HALOPERIDOL LACTATE INJ 5 MG/1 ML VIAL ONE (10:41)
[2019-07-16] MEDS: CLOPIDOGREL BISULFATE 75 MG TABLET PO SCH (11:04)
[2019-07-16] MEDS: LISINOPRIL 5 MG TABLET PO SCH (11:04)
[2019-07-16] MEDS: CITALOPRAM HYDROBROMIDE 20 MG TABLET PO SCH (11:04)
[2019-07-16] MEDS: RISPERIDONE 0.25 MG TABLET PO SCH ×2 (11:04→21:14)
[2019-07-16] MEDS: METOPROLOL TARTRATE 25 MG TABLET PO SCH ×2 (11:04→21:14)
[2019-07-16] MEDS: MEMANTINE HCL 10 MG TABLET PO SCH (11:04)
--- NOTE | 2019-07-16 13:42 | Progress Note Acknowledgement ---
Progress Note Acknowledgement Progess Note Acknowledgement: I, the undersigned member of the medical staff with appropriate privileges and with supervisory authority over [ PAC], a dependent practice allied health professional, acknowledge that I have reviewed the progress notes entered on this patient, and in my professional judgment believe that the assessment made and/or any care evidenced was appropriate
--- NOTE | 2019-07-16 13:56 | PDOC PROGRESS REPORT ---
Subjective Progress Note for:: 07/16/19 Subjective:: 07/16/19 83-year-old male who was admitted from an assisted living facility who was just discharged from hospital 2 days ago for DKA. Patient has dementia and insulin DM Glucose on admission was 404, today it is 434 Reason For Visit: HYPERGLYCEMIA Physical Exam Vital Signs: Temp Pulse Resp BP Pulse Ox 98.0 F 102 H 18 125/51 L 99 07/16/19 00:08 07/16/19 00:08 07/16/19 00:08 07/16/19 00:08 07/16/19 00:08 Intake & Output 07/15/19 07/16/19 07/17/19 06:59 06:59 06:59 Output Total 2024 Balance -2024 Weight 70.2 kg General appearance: PRESENT: mild distress, other - patient was agitated this morning on rounds Respiratory exam: PRESENT: clear to auscultation javier. ABSENT: rales, rhonchi, wheezes Cardiovascular exam: PRESENT: RRR. ABSENT: diastolic murmur, rubs, systolic murmur Neurological exam: PRESENT: alert, awake, oriented to person, oriented to place, oriented to time, oriented to situation, CN II-XII grossly intact. ABSENT: motor sensory deficit Psychiatric exam: PRESENT: appropriate affect, normal mood. ABSENT: homicidal ideation, suicidal ideation Results Laboratory Results: 07/15/19 10:39 07/16/19 05:36 07/16/19 05:36 Sodium 137.8 Potassium 4.4 Chloride 104 Carbon Dioxide 18 L Anion Gap 16 BUN 12 Creatinine 0.80 Est GFR ( Amer) > 60 Glucose 434 H* Calcium 9.1 Impressions: Chest X-Ray 07/15/19 13:21 IMPRESSION: Cannot exclude limited left lower lobe pneumonia. Assessment and Plan - Diagnosis (1) Agitation Is this a current diagnosis for this admission?: Yes Plan: 07/16/19 Patient had to be given Haldol and Ativan IM this morning for agitation, threatening to strike the nurses, not allowing them to do their job. Patient has dementia reportedly (2) UTI (urinary tract infection) Qualifiers: Urinary tract infection type: site unspecified Hematuria presence: with hematuria Qualified Code(s): N39.0 - Urinary tract infection, site not specified; R31.9 - Hematuria, unspecified Is this a current diagnosis for this admission?: Yes Plan: He grew out a Klebsiella when he was here on his last admission and is on Keflex which will be continued 07/16/19 Urine culture shows no growth in 1 day. On keflex (3) Uncontrolled diabetes mellitus Qualifiers: Diabetes mellitus type: type 2 Glycemic state: with hyperglycemia Qualified Code(s): E11.65 - Type 2 diabetes mellitus with hyperglycemia Is this a current diagnosis for this admission?: Yes Plan: As noted above, apparently he gets his usual medications but his diet is not regulated, and I suspect there is a large degree of indiscretion. Once we get his blood sugar back under control with his usual insulin plus a sliding scale and regulation of his diet here, we will have to figure out a way to make sure his diet is regulated there for his diabetes so he does not keep coming back to the hospital like this. He has dementia and so he is not going to self regulate. 07/16/19 Patient was on Metformin 500 BID prior to admission. Now on sliding scale. Will add Metformin back. (4) Dementia Qualifiers: Dementia type: unspecified type Dementia behavioral disturbance: without behavioral disturbance Qualified Code(s): F03.90 - Unspecified dementia without behavioral disturbance Is this a current diagnosis for this admission?: Yes Plan: 07/16/19 Pateint was on Riesperdal 0.5 mg BID and Namenda 10 mg BID prior to coming in hospital. Will add these back. (5) Multiple falls Is this a current diagnosis for this admission?: Yes Plan: Patient talks about falling into the kitchen table. Not sure if this is true. Due to dementia - Time Time Spent with patient: 35 or more minutes
[2019-07-16] MEDS: METFORMIN HCL 500 MG TABLET PO SCH (17:06)
[2019-07-16] MEDS: LORAZEPAM INJ 2 MG/1 ML VIAL IV PRN (21:12)
[2019-07-16] MEDS: ATORVASTATIN CALCIUM 80 MG TABLET PO SCH (21:14)
[2019-07-16] MEDS: INSULIN GLARGINE,HUM.REC.ANLOG 1,000 UNIT/10 ML VIAL SUBCUT SCH (22:00)
[2019-07-17] MEDS: LORAZEPAM INJ 2 MG/1 ML VIAL IV PRN ×3 (06:30→21:11)
[2019-07-17] MEDS: HEPARIN SOD (PORCINE) 5,000 UNIT/ML 1 ML VIAL SUBCUT SCH ×3 (06:33→21:12)
[2019-07-17 07:40] LABS: ANION GAP 18 (5-19); BLOOD UREA NITROGEN 17 mg/dL (7-20); CALCIUM 9.4 mg/dL (8.4-10.2); CARBON DIOXIDE 17 mmol/L (22-30); CHLORIDE 107 mmol/L (98-107); GLUCOSE 390 mg/dL (75-110); POTASSIUM 4.7 mmol/L (3.6-5.0)
[2019-07-17] MEDS: NORMAL SALINE 1000 ML 1,000 ML IV PRN ×2 (08:09→21:10)
[2019-07-17] MEDS: INSULIN LISPRO 100 UNIT/ML 3 ML VIAL SUBCUT SCH ×4 (08:41→21:15)
[2019-07-17] MEDS: METFORMIN HCL 500 MG TABLET PO SCH ×2 (08:42→16:59)
[2019-07-17] MEDS: MEMANTINE HCL 10 MG TABLET PO SCH (09:00)
[2019-07-17] MEDS: METOPROLOL TARTRATE 25 MG TABLET PO SCH ×2 (09:00→21:09)
[2019-07-17] MEDS: RISPERIDONE 0.25 MG TABLET PO SCH ×2 (11:22→21:09)
[2019-07-17] MEDS: LISINOPRIL 5 MG TABLET PO SCH ×2 (11:24→12:21)
[2019-07-17] MEDS: CLOPIDOGREL BISULFATE 75 MG TABLET PO SCH (11:25)
[2019-07-17] MEDS: CITALOPRAM HYDROBROMIDE 20 MG TABLET PO SCH (11:25)
[2019-07-17] MEDS ORDERED: INSULIN GLARGINE,HUM.REC.ANLOG 1,000 UNIT/10 ML VIAL (PYX) SUBCUT ONE (14:30)
--- NOTE | 2019-07-17 16:26 | PDOC PROGRESS REPORT ---
Subjective Progress Note for:: 07/17/19 Subjective:: 07/16/19 83-year-old male who was admitted from an assisted living facility who was just discharged from hospital 2 days ago for DKA. Patient has dementia and insulin DM Glucose on admission was 404, today it is 434 07/17/2019 is much more calm and less aggressive and hostile today, per the nurse he is having a better day. Patient is on a sliding scale of insulin normal saline at 75/h, Respinol 0.5 mg every 12 hours , Celexa 40 mg daily he is also using Ativan occasionally 0.5 mg every 4 hours and agitation Started metformin 500 mg twice daily and Lantus 25 units subcu nightly Reason For Visit: HYPERGLYCEMIA Physical Exam Vital Signs: Temp Pulse Resp BP Pulse Ox 98.6 F 98 21 H 133/65 H 96 07/17/19 12:01 07/17/19 12:01 07/17/19 12:01 07/17/19 12:01 07/17/19 12:01 Intake & Output 07/16/19 07/17/19 07/18/19 06:59 06:59 06:59 Intake Total 1000 Output Total 2024 2169 Balance -2024 -1169 Weight 70.2 kg 62.3 kg Results Laboratory Results: 07/15/19 10:39 07/17/19 06:07 07/17/19 06:07 Sodium 142.0 Potassium 4.7 Chloride 107 Carbon Dioxide 17 L Anion Gap 18 BUN 17 Creatinine 0.85 Est GFR ( Amer) > 60 Glucose 390 H Calcium 9.4 07/15/19 10:49 Catheterized Urine Urine Culture - Final NO GROWTH 2 DAYS Impressions: Chest X-Ray 07/15/19 13:21 IMPRESSION: Cannot exclude limited left lower lobe pneumonia. Assessment and Plan - Diagnosis (1) Agitation Is this a current diagnosis for this admission?: Yes Plan: 07/16/19 Patient had to be given Haldol and Ativan IM this morning for agitation, threatening to strike the nurses, not allowing them to do their job. Patient has dementia reportedly 07/17/2019 patient is taking his risperdal all now 0.5 every 12 hours and using Ativan as needed. Much less agitation today. (2) UTI (urinary tract infection) Qualifiers: Urinary tract infection type: site unspecified Hematuria presence: with hematuria Qualified Code(s): N39.0 - Urinary tract infection, site not specified; R31.9 - Hematuria, unspecified Is this a current diagnosis for this admission?: Yes Plan: He grew out a Klebsiella when he was here on his last admission and is on Keflex which will be continued 07/16/19 Urine culture shows no growth in 1 day. On keflex 07/17/2019 final urine culture shows no growth in 2 days will DC Keflex (3) Uncontrolled diabetes mellitus Qualifiers: Diabetes mellitus type: type 2 Glycemic state: with hyperglycemia Qualified Code(s): E11.65 - Type 2 diabetes mellitus with hyperglycemia Is this a current diagnosis for this admission?: Yes Plan: As noted above, apparently he gets his usual medications but his diet is not regulated, and I suspect there is a large degree of indiscretion. Once we get his blood sugar back under control with his usual insulin plus a sliding scale and regulation of his diet here, we will have to figure out a way to make sure his diet is regulated there for his diabetes so he does not keep coming back to the hospital like this. He has dementia and so he is not going to self regulate. 07/16/19 Patient was on Metformin 500 BID prior to admission. Now on sliding scale. Will add Metformin back. 07/17/2019 patient is on the metformin 500 mg twice daily as well as Lantus 85 units subcu looks as though fingerstick blood sugars are coming down gradually now into the 200s (4) Dementia Qualifiers: Dementia type: unspecified type Dementia behavioral disturbance: without behavioral disturbance Qualified Code(s): F03.90 - Unspecified dementia without behavioral disturbance Is this a current diagnosis for this admission?: Yes Plan: 07/16/19 Pateint was on Riesperdal 0.5 mg BID and Namenda 10 mg BID prior to coming in hospital. Will add these back. 07/17/2019 and is back on the above mentioned medications, dementia seems to fluctuate from day today (5) Multiple falls Is this a current diagnosis for this admission?: Yes Plan: Patient talks about falling into the kitchen table. Not sure if this is true. Due to dementia 07/17/2019 no evidence of falling here in the hospital patient does not get out of the bed unassisted side rails are up at all times - Time Time Spent with patient: 25-34 minutes
[2019-07-17] MEDS: ATORVASTATIN CALCIUM 80 MG TABLET PO SCH (21:09)
[2019-07-17] MEDS: INSULIN GLARGINE,HUM.REC.ANLOG 1,000 UNIT/10 ML VIAL SUBCUT SCH (21:16)
[2019-07-18] MEDS ORDERED: CHLORPROMAZINE HCL INJ 25 MG/1 ML AMPULE ONE (00:39)
[2019-07-18] MEDS: CHLORPROMAZINE HCL INJ 25 MG/1 ML AMPULE IV PRN ×2 (00:46→17:01)
[2019-07-18] MEDS: HEPARIN SOD (PORCINE) 5,000 UNIT/ML 1 ML VIAL SUBCUT SCH ×3 (05:40→22:27)
[2019-07-18 05:51] LABS: ANION GAP 14 (5-19); BLOOD UREA NITROGEN 12 mg/dL (7-20); CARBON DIOXIDE 22 mmol/L (22-30); CHLORIDE 109 mmol/L (98-107); GLUCOSE 229 mg/dL (75-110)
[2019-07-18 06:01] LABS: POTASSIUM 3.3 mmol/L (3.6-5.0)
[2019-07-18] MEDS: CITALOPRAM HYDROBROMIDE 20 MG TABLET PO SCH (10:00)
[2019-07-18] MEDS: METFORMIN HCL 500 MG TABLET PO SCH ×2 (10:00→17:02)
[2019-07-18] MEDS: CLOPIDOGREL BISULFATE 75 MG TABLET PO SCH (10:00)
[2019-07-18] MEDS: MEMANTINE HCL 10 MG TABLET PO SCH (10:00)
[2019-07-18] MEDS: METOPROLOL TARTRATE 25 MG TABLET PO SCH ×2 (10:00→22:20)
--- NOTE | 2019-07-18 11:18 | ST Inp Modified Barium Swallow ---
Medical Diagnosis - Medical Diagnoses Medical Diagnosis Description & ICD-10 Code(s): UTI - ICD-10 Tx Diagnosis Coding (1) Dysphagia ICD-10 Code(s): R13.10 - DYSPHAGIA, UNSPECIFIED ST [place] [facility] [place]: [place]18[place]19 Date of Onset: 07/17/19 - date order placed - History -: Medical - per EMR: [facility]. Patient has prior medical history of dementia and diabetes, poorly controled. Medications: Medications Reviewed Allergies: Refer to medical record - Subjective Current Nutritional Means: NPO Current PO Diet: N/A (NPO) Pain: no signs/symptoms of pain - Objective Assessment: Upright, Left Lateral - Food Trials Food Trials Used: Thin liquids, Pureed The Patient: fed by ST - Assessment Dentition: Edentulous - patient has dentures, was not wearing for study Velo-Pharyngeal Function: Unremarkable Laryngeal Function: clear voicing - Pharyngeal Stage Initiation of Pharyngeal Stage: Delayed - triggered between valleculae and pyriform sinus Decreased Laryngeal Elevation: Yes Reduced Velo-Pharyngeal Closure: no Reduced Pressure Generation: Yes Reduced Tongue Base Retraction: Yes Pre-Swallowing Pooling in Valleculae: Moderate Pre-Swallowing Pooling in Pyriforms: Mild Reduced Thyro-Hyiod Approximation: Yes Multiple Swallows With: Ineffective Clearance Post Swallow Residuals in Valleculae: Moderate Post Swallow Residuals in Pyriforms: Moderate Pahryngeal Stage Comments: Patient presents with high risk of aspiration all all textures due to weak pharyngeal constriction, poor swallow initiation, and poor airway closure during the swallow. Likely a combination of physiological weakness of muscles, and also decreased mentation due to underlying dementia. The patient required max cues throughout study to take bites/sips, and to swallow in timely fashion. The patient was seen to complete some dry swallows, but these did not clear pharyngeal residue. Discussed results with provider, Day, and placed diet order for thin liquids and puree solids. Patient is still at risk of aspiration on this diet. - Impression/Summary Laryngeal Penetration: Yes, during swallow, after swallow Tracheal Aspiration: yes - thin liquid-difficult to visual swallow due to extraneous movement, but high likelihood of aspiration due to presence of laryngeal penetration without a cough reflex. pudding-observed penetration on the swallow, which was eventually aspirated. Additional aspiration seen after the swallow with residue from the valleculae which fell freely into airway and below level of vocal folds. No cough reflex seen. Risk of Aspiration: Severe Risk of Nutritional Compromise: Severe Risk Due To: decreased mental status and underlying dementia places patient at risk of decreased desire for foods, and increased risk of aspiration on all textures. - Recommendations Solid Diet Recommendations: Pureed Liquid Diet Recommendations: Thin Strict Aspitarion Precautions: Yes Dysphagia Therapy with [employer]: No Recommended Techniques: Fully Upright During Meal, Small Bites and Sips Supervision: requires assistance Other Recommendations: Aspiration observed on all trial textures. Puree texture was recommended due to likely poor ability to adequately masticate foods and risk of holding. Thin liquids recommended due to significant pharyngeal residue with eventual aspiration after the swallow as textures increased. - Time Total Time: 30 Total Timed Minutes: 30
--- NOTE | 2019-07-18 12:09 | RADIOLOGY REPORT (SQ) ---
EXAM DESCRIPTION: KATIA SWALLOW COMPLETED DATE/TIME: 07/18/2019 9:41 am REASON FOR STUDY: DIFFICULTY SWALLOWING dementia COMPARISON: None. TECHNIQUE: Videofluoroscopic swallowing examination was performed in conjunction with speech patholo gy. Videofluoroscopic imaging was obtained and reviewed and these are the findings: RADIATION DOSE: 1 minutes 22 seconds of fluoroscopy was used. 1 images saved to PACS. LIMITATIONS: None FINDINGS: The patient was brought into the fluoro room and placed upright on a modified barium swall ow chair. The patient was then given multiple consistencies mixed with barium to swallow under live fluoroscopic video guidance. According to the Speech Pathologist there was laryngeal penetration and aspiration of thin liquids and post swallow residuals from the Piriforms. IMPRESSION: LARYNGEAL PENETRATION AND ASPIRATION ABOVE. PLEASE SEE SPEECH PATHOLOGIST REPORT FOR OTHER FINDINGS AND RECOMMENDATIONS. COMMENT: Quality ID [id number]: Final reports for procedures using fluoroscopy that document radiation exp osure indices, or exposure time and number of fluorographic images (if radiation exposure indices are not available) TECHNICAL DOCUMENTATION: JOB ID: [id number] [employer]- All Rights Reserved Reading location - IP/workstation name: [email or web address]
[2019-07-18] MEDS: INSULIN LISPRO 100 UNIT/ML 3 ML VIAL SUBCUT SCH ×4 (12:26→22:27)
[2019-07-18] MEDS: LISINOPRIL 5 MG TABLET PO SCH (12:47)
[2019-07-18] MEDS: RISPERIDONE 0.25 MG TABLET PO SCH ×2 (12:48→17:09)
[2019-07-18] MEDS: NORMAL SALINE 1000 ML 1,000 ML IV PRN (12:57)
--- NOTE | 2019-07-18 13:06 | PDOC PROGRESS REPORT ---
Subjective Progress Note for:: 07/18/19 Subjective:: 07/16/19 83-year-old male who was admitted from an assisted living facility who was just discharged from hospital 2 days ago for DKA. Patient has dementia and insulin DM Glucose on admission was 404, today it is 434 07/17/2019 is much more calm and less aggressive and hostile today, per the nurse he is having a better day. Patient is on a sliding scale of insulin normal saline at 75/h, Respinol 0.5 mg every 12 hours , Celexa 40 mg daily he is also using Ativan occasionally 0.5 mg every 4 hours and agitation Started metformin 500 mg twice daily and Lantus 25 units subcu nightly 07/18/2019 discussion yesterday evening with both sons and their wives concerning patient and his level of consciousness and skilll required Feel like patient will require a care home facility at the time of discharge She is becoming more lethargic, they have decided to make patient a DNR Reason For Visit: HYPERGLYCEMIA Physical Exam Vital Signs: Temp Pulse Resp BP Pulse Ox 97.6 F 92 20 158/61 H 99 07/17/19 23:19 07/18/19 07:43 07/18/19 07:43 07/18/19 07:43 07/18/19 07:43 Intake & Output 07/17/19 07/18/19 07/19/19 06:59 06:59 06:59 Intake Total 2914 909 9190 Output Total 2170 2170 Balance -1170 -1194 1000 Weight 62.3 kg 63.2 kg Results Laboratory Results: 07/15/19 10:39 07/18/19 04:59 07/18/19 04:59 Sodium 144.7 Potassium 3.3 L D Chloride 109 H Carbon Dioxide 22 Anion Gap 14 BUN 12 Creatinine 0.63 Est GFR ( Amer) > 60 Glucose 229 H Calcium 9.0 07/15/19 10:49 Catheterized Urine Urine Culture - Final NO GROWTH 2 DAYS Impressions: Chest X-Ray 07/15/19 13:21 IMPRESSION: Cannot exclude limited left lower lobe pneumonia. Modified Barium Swallow 07/18/19 00:00 IMPRESSION: LARYNGEAL PENETRATION AND ASPIRATION ABOVE. PLEASE SEE SPEECH PATHOLOGIST REPORT FOR OTHER FINDINGS AND RECOMMENDATIONS. Assessment and Plan - Diagnosis (1) Agitation Is this a current diagnosis for this admission?: Yes Plan: 07/16/19 Patient had to be given Haldol and Ativan IM this morning for agitation, threatening to strike the nurses, not allowing them to do their job. Patient has dementia reportedly 07/17/2019 patient is taking his risperdal all now 0.5 every 12 hours and using Ativan as needed. Much less agitation today. [id number] no sign of agitation patient lays in the bed and pretty much stares off into space at times patient does refuse to take p.o.'s as well as food (2) UTI (urinary tract infection) Qualifiers: Urinary tract infection type: site unspecified Hematuria presence: with hematuria Qualified Code(s): N39.0 - Urinary tract infection, site not specified; R31.9 - Hematuria, unspecified Is this a current diagnosis for this admission?: Yes Plan: He grew out a Klebsiella when he was here on his last admission and is on Keflex which will be continued 07/16/19 Urine culture shows no growth in 1 day. On keflex 07/17/2019 final urine culture shows no growth in 2 days will DC Keflex 07/18/2019 no indictation of UTI (3) Uncontrolled diabetes mellitus Qualifiers: Diabetes mellitus type: type 2 Glycemic state: with hyperglycemia Qualified Code(s): E11.65 - Type 2 diabetes mellitus with hyperglycemia Is this a current diagnosis for this admission?: Yes Plan: As noted above, apparently he gets his usual medications but his diet is not regulated, and I suspect there is a large degree of indiscretion. Once we get his blood sugar back under control with his usual insulin plus a sliding scale and regulation of his diet here, we will have to figure out a way to make sure his diet is regulated there for his diabetes so he does not keep coming back to the hospital like this. He has dementia and so he is not going to self regulate. 07/16/19 Patient was on Metformin 500 BID prior to admission. Now on sliding scale. Will add Metformin back. 07/17/2019 patient is on the metformin 500 mg twice daily as well as Lantus 25 units subcu looks as though fingerstick blood sugars are coming down gradually now into the 200s 07/18/2019 serum glucose this morning was 229, however fingersticks are running in the 300s. Medications as above, recommend increasing Lantus to 30 units (4) Dementia Qualifiers: Dementia type: unspecified type Dementia behavioral disturbance: without behavioral disturbance Qualified Code(s): F03.90 - Unspecified dementia without behavioral disturbance Is this a current diagnosis for this admission?: Yes Plan: 07/16/19 Pateint was on Riesperdal 0.5 mg BID and Namenda 10 mg BID prior to coming in hospital. Will add these back. 07/17/2019 and is back on the above mentioned medications, dementia seems to fluctuate from day today 07/18/2019 patient appears to be less responsive today, appears to stare off though no particular direction (5) Multiple falls Is this a current diagnosis for this admission?: Yes Plan: Patient talks about falling into the kitchen table. Not sure if this is true. Due to dementia 07/17/2019 no evidence of falling here in the hospital patient does not get out of the bed unassisted side rails are up at all times 07/18/2019 no indication the patient tries to get out of bed unassisted - Time Time Spent with patient: 25-34 minutes
--- NOTE | 2019-07-18 16:10 | ADVANCED CARE ---
- Diagnosis (1) Agitation Diagnosis Current: Yes (2) UTI (urinary tract infection) Diagnosis Current: Yes (3) Uncontrolled diabetes mellitus Diagnosis Current: Yes (4) Dementia Diagnosis Current: Yes (5) Multiple falls Diagnosis Current: Yes Resuscitation Status: Do Not Resuscitate Discussion: Last night I met with the patient's 2 sons and their wives. We discussed the patient's recent hospital care as well as this admission we discussed the patient's medications and specifically his medicines for diabetes and what his blood sugars were when he left the hospital and what his blood sugars were when he returned to the hospital. We talked about diet at the facility where he was staying as far as the patient not eating a good diabetic diet We talked about long-term outcome and care. We made a decision to make the patient a DNR last night due to his failing mental status. I informed the family that I would contact discharge planning and we would talk about his potential discharge and where the patient would go and what he would be qualified for. I informed the family that the patient on this admission did not have a UTI since his culture was negative Approximate 45 minutes was spent with the family, in the patient's room, discussing the above. Family was appreciative of the visit Care Planning Goals: To control patient's blood sugars better and discuss patient's discharge and where he will be sent once discharged from the hospital. Also discussed patient's medications Document(s) Completed: DNR form will be filled out today
[2019-07-18] MEDS: INSULIN GLARGINE,HUM.REC.ANLOG 1,000 UNIT/10 ML VIAL SUBCUT SCH (22:20)
[2019-07-18] MEDS: ATORVASTATIN CALCIUM 80 MG TABLET PO SCH (22:21)
[2019-07-19] MEDS: CHLORPROMAZINE HCL INJ 25 MG/1 ML AMPULE IV PRN (01:22)
[2019-07-19] MEDS: HEPARIN SOD (PORCINE) 5,000 UNIT/ML 1 ML VIAL SUBCUT SCH ×3 (05:22→22:22)
[2019-07-19] MEDS: NORMAL SALINE 1000 ML 1,000 ML IV PRN (05:33)
[2019-07-19] MEDS: METFORMIN HCL 500 MG TABLET PO SCH ×2 (08:00→17:00)
[2019-07-19] MEDS: INSULIN LISPRO 100 UNIT/ML 3 ML VIAL SUBCUT SCH ×4 (08:16→22:22)
[2019-07-19] MEDS: CITALOPRAM HYDROBROMIDE 20 MG TABLET PO SCH (10:00)
[2019-07-19] MEDS: MEMANTINE HCL 10 MG TABLET PO SCH (10:00)
[2019-07-19] MEDS: CLOPIDOGREL BISULFATE 75 MG TABLET PO SCH (10:00)
[2019-07-19] MEDS: METOPROLOL TARTRATE 25 MG TABLET PO SCH ×2 (10:00→22:23)
[2019-07-19] MEDS: RISPERIDONE 0.25 MG TABLET PO SCH (10:00)
[2019-07-19] MEDS: LISINOPRIL 5 MG TABLET PO SCH (10:00)
--- NOTE | 2019-07-19 13:03 | PDOC PROGRESS REPORT ---
Subjective Progress Note for:: 07/19/19 Subjective:: 07/16/19 83-year-old male who was admitted from an assisted living facility who was just discharged from hospital 2 days ago for DKA. Patient has dementia and insulin DM Glucose on admission was 404, today it is 434 07/17/2019 is much more calm and less aggressive and hostile today, per the nurse he is having a better day. Patient is on a sliding scale of insulin normal saline at 75/h, Respinol 0.5 mg every 12 hours , Celexa 40 mg daily he is also using Ativan occasionally 0.5 mg every 4 hours and agitation Started metformin 500 mg twice daily and Lantus 25 units subcu nightly 07/18/2019 discussion yesterday evening with both sons and their wives concerning patient and his level of consciousness and skilll required Feel like patient will require a long-term facility at the time of discharge She is becoming more lethargic, they have decided to make patient a DNR 07/19/2019 patient today once again seems lethargic, however according to the [facility] last night even yesterday afternoon patient had to be given Thorazine, due to agitation Reason For Visit: HYPERGLYCEMIA Physical Exam Vital Signs: Temp Pulse Resp BP Pulse Ox 97.5 F 75 21 H 157/65 H 92 07/19/19 07:54 07/19/19 07:54 07/19/19 07:54 07/19/19 07:54 07/19/19 07:54 Intake & Output 07/18/19 07/19/19 07/20/19 06:59 06:59 06:59 Intake Total 976 3350 Output Total 2170 1275 Balance -1194 2075 Weight 63.2 kg 60.1 kg General appearance: PRESENT: no acute distress, other - She appears to have slow agonal type breathing while asleep Respiratory exam: PRESENT: clear to auscultation javier. ABSENT: rales, rhonchi, wheezes Cardiovascular exam: PRESENT: RRR. ABSENT: diastolic murmur, rubs, systolic murmur Neurological exam: PRESENT: altered, other - Patient is not oriented to person place or time, patient tends to sleep a lot Results Laboratory Results: 07/15/19 10:39 07/18/19 04:59 Impressions: Chest X-Ray 07/15/19 13:21 IMPRESSION: Cannot exclude limited left lower lobe pneumonia. Modified Barium Swallow 07/18/19 00:00 IMPRESSION: LARYNGEAL PENETRATION AND ASPIRATION ABOVE. PLEASE SEE SPEECH PATHOLOGIST REPORT FOR OTHER FINDINGS AND RECOMMENDATIONS. Assessment and Plan - Diagnosis (1) Agitation Is this a current diagnosis for this admission?: Yes Plan: 07/16/19 Patient had to be given Haldol and Ativan IM this morning for agit ation, threatening to strike the nurses, not allowing them to do their job. Patient has dementia reportedly 07/17/2019 patient is taking his risperdal all now 0.5 every 12 hours and using Ativan as needed. Much less agitation today. [id number] no sign of agitation patient lays in the bed and pretty much stares off into space at times patient does refuse to take p.o.'s as well as food 07/19/2019 required was seen twice yesterday for agitation with the nurses otherwise patient is sleeping (2) UTI (urinary tract infection) Qualifiers: Urinary tract infection type: site unspecified Hematuria presence: with hematuria Qualified Code(s): N39.0 - Urinary tract infection, site not specified; R31.9 - Hematuria, unspecified Is this a current diagnosis for this admission?: Yes Plan: He grew out a Klebsiella when he was here on his last admission and is on Keflex which will be continued 07/16/19 Urine culture shows no growth in 1 day. On keflex 07/17/2019 final urine culture shows no growth in 2 days will DC Keflex 07/18/2019 no indictation of UTI 07/19/1919 we will repeat UA today at the family's request. Family wants to make sure the patient does not have "an infection" that may be causing his decreased level of consciousness. (3) Uncontrolled diabetes mellitus Qualifiers: Diabetes mellitus type: type 2 Glycemic state: with hyperglycemia Qualified Code(s): E11.65 - Type 2 diabetes mellitus with hyperglycemia Is this a current diagnosis for this admission?: Yes Plan: As noted above, apparently he gets his usual medications but his diet is not regulated, and I suspect there is a large degree of indiscretion. Once we get his blood sugar back under control with his usual insulin plus a sliding scale and regulation of his diet here, we will have to figure out a way to make sure his diet is regulated there for his diabetes so he does not keep coming back to the hospital like this. He has dementia and so he is not going to self regulate. 07/16/19 Patient was on Metformin 500 BID prior to admission. Now on sliding scale. Will add Metformin back. 07/17/2019 patient is on the metformin 500 mg twice daily as well as Lantus 25 units subcu looks as though fingerstick blood sugars are coming down gradually now into the 200s 07/18/2019 serum glucose this morning was 229, however fingersticks are running in the 300s. Medications as above, recommend increasing Lantus to 30 units 07/19/2019 serum glucose this morning is 229 and in fact his fingerstick blood sugar about 2 hours ago was 127. Glucose levels are under much much better control increasing his Lantus to 30 units (4) Dementia Qualifiers: Dementia type: unspecified type Dementia behavioral disturbance: without behavioral disturbance Qualified Code(s): F03.90 - Unspecified dementia without behavioral disturbance Is this a current diagnosis for this admission?: Yes Plan: 07/16/19 Pateint was on Riesperdal 0.5 mg BID and Namenda 10 mg BID prior to c oming in hospital. Will add these back. 07/17/2019 and is back on the above mentioned medications, dementia seems to fluctuate from day today 07/18/2019 patient appears to be less responsive today, appears to stare off though no particular direction 07 19 19 no change in dementia although decreased level of consciousness (5) Multiple falls Is this a current diagnosis for this admission?: Yes Plan: Patient talks about falling into the kitchen table. Not sure if this is true. Due to dementia 07/17/2019 no evidence of falling here in the hospital patient does not get out of the bed unassisted side rails are up at all times 07/18/2019 no indication the patient tries to get out of bed unassisted 07/19/2019 he does try to get out of bed even though is not supposed to, and becomes agitated when not allowed to do so - Time Time Spent with patient: 25-34 minutes
--- NOTE | 2019-07-19 13:06 | ADVANCED CARE ---
- Diagnosis (2) UTI (urinary tract infection) Diagnosis Current: Yes (3) Uncontrolled diabetes mellitus Diagnosis Current: Yes (4) Dementia Diagnosis Current: Yes (5) Multiple falls Diagnosis Current: Yes Attendance: Both sons, and at times discharge planning Resuscitation Status: Do Not Resuscitate Discussion: Between 30 and 60-minute discussion with both of the sons and afterwards included discharge planning. Shayy feeding tube options with Dobbhoff versus PEG just stopping all antipsychotics and benzodiazepines to see what level of consciousness the patient returns to.. Discussed the fact that if patient becomes hostile or belligerent or agitated will need to give these medicines Discussed the possibility of an infection and therefore will order chest x-ray CT head scan and labs. I discussed once again end-of-life issues hospice and placement issues based on patient's level of care Care Planning Goals: Shayy long-term goals
[2019-07-19 13:25] LABS: ABSOLUTE EOSINOPHILS # (AUTO) 0.5 10^3/uL (0.0-0.6); ABSOLUTE MONOCYTES (AUTO) 0.7 10^3/uL (0.1-1.4); ABSOLUTE NEUT (AUTO) 3.8 10^3/uL (1.7-8.2); BASOPHILS % (AUTO) 0.6 % (0-2); EOSINOPHILS % (AUTO) 7.7 % (0-6); HEMATOCRIT 34.5 % (37.9-51.0); HEMOGLOBIN 11.7 g/dL (13.5-17.0); LYMPHOCYTES % (AUTO) 16.3 % (13-45); MEAN CORPUSCULAR HEMOGLOBIN 30.8 pg (27.0-33.4); MEAN CORPUSCULAR HGB CONC 34.1 g/dL (32.0-36.0); MEAN CORPUSCULAR VOLUME 90 fl (80-97); MONOCYTES % (AUTO) 11.1 % (3-13); PLATELET COUNT 290 10^3/uL (150-450); RED BLOOD COUNT 3.81 10^6/uL (4.35-5.55); RED CELL DISTRIBUTION WIDTH 13.7 % (11.5-14.0); SEGMENTED NEUTROPHILS % (AUTO) 64.3 % (42-78); TOTAL CELLS COUNTED % (AUTO) 100 %; WHITE BLOOD COUNT 5.9 10^3/uL (4.0-10.5)
--- NOTE | 2019-07-19 14:06 | RADIOLOGY REPORT (SQ) ---
EXAM DESCRIPTION: CT HEAD WITHOUT COMPLETED DATE/TIME: 07/19/2019 1:53 pm REASON FOR STUDY: AMS COMPARISON: 07/10/2019 TECHNIQUE: Axial images acquired through the brain without intravenous contrast. Images reviewed wi th bone, brain and subdural windows. Additional sagittal and coronal reconstructions were generated. Images stored on PACS. All CT scanners at this facility use dose modulation, iterative reconstruction, and/or weight based d osing when appropriate to reduce radiation dose to as low as reasonably achievable (ALARA). [facility]: Dose Right [facility]: CareDose [facility]: Dose Right [facility]: Teradose 4D [facility]: [employer] RADIATION DOSE: CT Rad equipment meets quality standard of care and radiation dose reduction techniq ues were employed. CTDIvol: 48.8 mGy. DLP: 1030 mGy-cm. mGy. LIMITATIONS: None. FINDINGS: VENTRICLES: Prominent ventricles secondary to involutional atrophy. CEREBRUM: Cortical atrophy. No masses. No hemorrhage. No midline shift. No evidence for acute inf arction. Few scattered areas of low density in the white matter most likely chronic small vessel isch emic changes. CEREBELLUM: No masses. No hemorrhage. No alteration of density. No evidence for acute infarction. EXTRAAXIAL SPACES: No fluid collections. No masses. ORBITS AND GLOBE: No intra- or extraconal masses. Normal contour of globe without masses. CALVARIUM: No fracture. PARANASAL SINUSES: No fluid or mucosal thickening. SOFT TISSUES: No mass or hematoma. OTHER: No other significant finding. IMPRESSION: Mild involutional changes and mild chronic microvascular ischemia. No acute intracrania l imaging findings. EVIDENCE OF ACUTE STROKE: NO. COMMENT: Quality ID # [id number]: Final reports with documentation of one or more dose reduction techniques (e.g., Automated exposure control, adjustment of the mA and/or kV according to patient size, use of iterative reconstruction technique) TECHNICAL DOCUMENTATION: JOB ID: [id number] [employer]- All Rights Reserved Reading location - IP/workstation name: [email or web address]
--- NOTE | 2019-07-19 17:57 | RADIOLOGY REPORT (SQ) ---
EXAM DESCRIPTION: CHEST SINGLE VIEW COMPLETED DATE/TIME: 07/19/2019 5:39 pm REASON FOR STUDY: r/o pneumonia COMPARISON: 07/15/2019 TECHNIQUE: Single frontal radiographic view of the chest acquired. NUMBER OF VIEWS: One view. LIMITATIONS: RPO positioning. FINDINGS: LUNGS AND PLEURA: No pneumothorax. No consolidation or pleural effusion. MEDIASTINUM AND HILAR STRUCTURES: Stable. HEART AND VASCULAR STRUCTURES: Stable. BONES: No acute findings. HARDWARE: None in the chest. OTHER: No other significant finding. IMPRESSION: NO ACUTE FINDINGS. TECHNICAL DOCUMENTATION: JOB ID: [id number] 2010 [employer]- All Rights Reserved Reading location - IP/workstation name: [email or web address]
[2019-07-19 19:54] LABS: APPEARANCE,URINE CLEAR; BILIRUBIN,URINE NEGATIVE (NEGATIVE); COLOR,URINE YELLOW; GLUCOSE, URINE 150 mg/dL (NEGATIVE); KETONES,URINE 20 mg/dL (NEGATIVE); LEUKOCYTE ESTERASE,URINE NEGATIVE (NEGATIVE); NITRITE,URINE NEGATIVE (NEGATIVE); PROTEIN,URINE 100 mg/dL (NEGATIVE); URINE SPECIFIC GRAVITY 1.017; UROBILINOGEN,URINE NEGATIVE mg/dL (<2.0)
[2019-07-19 19:57] LABS: ANION GAP 8 (5-19); BLOOD UREA NITROGEN 10 mg/dL (7-20); CALCIUM 8.9 mg/dL (8.4-10.2); CARBON DIOXIDE 27 mmol/L (22-30); CHLORIDE 109 mmol/L (98-107); GLUCOSE 148 mg/dL (75-110)
[2019-07-19] MEDS: POTASSIUM CHLORIDE 20 MEQ/50 ML RTU IV SCH (22:22)
[2019-07-19] MEDS: INSULIN GLARGINE,HUM.REC.ANLOG 1,000 UNIT/10 ML VIAL SUBCUT SCH (22:23)
[2019-07-19] MEDS: ATORVASTATIN CALCIUM 80 MG TABLET PO SCH (22:23)
[2019-07-20] MEDS: POTASSIUM CHLORIDE 20 MEQ/50 ML RTU IV SCH (02:32)
[2019-07-20 06:22] LABS: ANION GAP 9 (5-19); BLOOD UREA NITROGEN 12 mg/dL (7-20); CALCIUM 8.7 mg/dL (8.4-10.2); CARBON DIOXIDE 24 mmol/L (22-30); CHLORIDE 112 mmol/L (98-107); GLUCOSE 190 mg/dL (75-110); POTASSIUM 3.3 mmol/L (3.6-5.0)
[2019-07-20] MEDS: HEPARIN SOD (PORCINE) 5,000 UNIT/ML 1 ML VIAL SUBCUT SCH ×3 (06:35→21:36)
[2019-07-20] MEDS: CLOPIDOGREL BISULFATE 75 MG TABLET PO SCH (09:06)
[2019-07-20] MEDS: METOPROLOL TARTRATE 25 MG TABLET PO SCH ×2 (09:06→21:38)
[2019-07-20] MEDS: METFORMIN HCL 500 MG TABLET PO SCH ×2 (09:07→18:05)
[2019-07-20] MEDS: CITALOPRAM HYDROBROMIDE 20 MG TABLET PO SCH (09:07)
[2019-07-20] MEDS: MEMANTINE HCL 10 MG TABLET PO SCH (09:08)
[2019-07-20] MEDS: LISINOPRIL 5 MG TABLET PO SCH (09:08)
[2019-07-20] MEDS: INSULIN LISPRO 100 UNIT/ML 3 ML VIAL SUBCUT SCH ×4 (09:10→21:37)
--- NOTE | 2019-07-20 14:21 | PDOC PROGRESS REPORT ---
Subjective Progress Note for:: 07/20/19 Subjective:: 07/16/19 83-year-old male who was admitted from an assisted living facility who was just discharged from hospital 2 days ago for DKA. Patient has dementia and insulin DM Glucose on admission was 404, today it is 434 07/17/2019 is much more calm and less aggressive and hostile today, per the nurse he is having a better day. Patient is on a sliding scale of insulin normal saline at 75/h, Respinol 0.5 mg every 12 hours , Celexa 40 mg daily he is also using Ativan occasionally 0.5 mg every 4 hours and agitation Started metformin 500 mg twice daily and Lantus 25 units subcu nightly 07/18/2019 discussion yesterday evening with both sons and their wives concerning patient and his level of consciousness and skilll required Feel like patient will require a long-term facility at the time of discharge She is becoming more lethargic, they have decided to make patient a DNR 07/19/2019 patient today once again seems lethargic, however according to the johny ses last night even yesterday afternoon patient had to be given Thorazine, due to agitation 07/20/2019 according to the nurses patient had a much better night last night and today is awake alert and eating breakfast. There is some question about sleep deprivation as night nurse reports that patient has not slept previously for the last 48 hours, patient slept most of yesterday and most of last night. Patient's Respinol was DC'd yesterday, and the Thorazine was held due to no agitation. Reason For Visit: HYPERGLYCEMIA Physical Exam Vital Signs: Temp Pulse Resp BP Pulse Ox 98.3 F 97 16 157/67 H 95 07/20/19 11:24 07/20/19 11:24 07/20/19 11:24 07/20/19 11:24 07/20/19 11:24 Intake & Output 07/19/19 07/20/19 07/21/19 06:59 06:59 06:59 Intake Total 3350 800 360 Output Total 1275 800 875 Balance 2075 0 -515 Weight 60.1 kg 64.2 kg General appearance: PRESENT: no acute distress, other - Eating up in bed eating breakfast, carries on a fairly normal conversation Respiratory exam: PRESENT: clear to auscultation javier. ABSENT: rales, rhonchi, wheezes Cardiovascular exam: PRESENT: RRR. ABSENT: diastolic murmur, rubs, systolic murmur Extremities exam: PRESENT: other - She has a clear blister on the bottom of his right foot, slightly minimally red. Does not really appear to be infected we will add some triple antibiotic ointment and dressing. At this point no need to culture or renu. Watch closely Neurological exam: PRESENT: alert, awake, oriented to person, oriented to place, oriented to time, oriented to situation, CN II-XII grossly intact. ABSENT: motor sensory deficit Psychiatric exam: PRESENT: appropriate affect, normal mood, other - Agitation at all. ABSENT: homicidal ideation, suicidal ideation Results Laboratory Results: 07/19/19 13:13 07/20/19 05:23 07/19/19 07/19/19 07/20/19 19:00 19:34 05:23 Sodium 143.9 145.4 H Potassium 3.0 L* 3.3 L Chloride 109 H 112 H Carbon Dioxide 27 24 Anion Gap 8 9 BUN 10 12 Creatinine 0.65 0.63 Est GFR ( Amer) > 60 > 60 Glucose 148 H 190 H Calcium 8.9 8.7 Urine Color YELLOW Urine Appearance CLEAR Urine pH 6.0 Ur Specific [place] 1.017 Urine Protein 100 H Urine Glucose (UA) 150 H Urine Ketones 20 H Urine Blood MODERATE H Urine Nitrite NEGATIVE Ur Leukocyte Esterase NEGATIVE Urine WBC (Auto) 6 Urine RBC (Auto) 4 07/15/19 11:40 Blood Blood Culture - Final NO GROWTH IN 5 DAYS 07/15/19 10:39 Blood Blood Culture - Final NO GROWTH IN 5 DAYS Impressions: Modified Barium Swallow 07/18/19 00:00 IMPRESSION: LARYNGEAL PENETRATION AND ASPIRATION ABOVE. PLEASE SEE SPEECH PATHOLOGIST REPORT FOR OTHER FINDINGS AND RECOMMENDATIONS. Chest X-Ray 07/19/19 00:00 IMPRESSION: NO ACUTE FINDINGS. Head CT 07/19/19 11:51 IMPRESSION: Mild involutional changes and mild chronic microvascular ischemia. No acute intracranial imaging findings. EVIDENCE OF ACUTE STROKE: NO. Assessment and Plan - Diagnosis (1) Agitation Is this a current diagnosis for this admission?: Yes Plan: 07/16/19 Patient had to be given Haldol and Ativan IM this morning for agitation, threatening to strike the nurses, not allowing them to do their job. Patient has dementia reportedly 07/17/2019 patient is taking his risperdal all now 0.5 every 12 hours and using Ativan as needed. Much less agitation today. [id number] no sign of agitation patient lays in the bed and pretty much stares off into space at times patient does refuse to take p.o.'s as well as food 07/19/2019 required was seen twice yesterday for agitation with the nurses otherwise patient is sleeping 07/20/2019 no agitation last night, no agitation so far today (2) UTI (urinary tract infection) Qualifiers: Urinary tract infection type: site unspecified Hematuria presence: with hematuria Qualified Code(s): N39.0 - Urinary tract infection, site not specified; R31.9 - Hematuria, unspecified Is this a current diagnosis for this admission?: Yes Plan: He grew out a Klebsiella when he was here on his last admission and is on Keflex which will be continued 07/16/19 Urine culture shows no growth in 1 day. On keflex 07/17/2019 final urine culture shows no growth in 2 days will DC Keflex 07/18/2019 no indictation of UTI 07/19/1919 we will repeat UA today at the family's request. Family wants to make sure the patient does not have "an infection" that may be causing his decreased level of consciousness. 07/20/2019 urinalysis is basically completely clear no indication for culture (3) Uncontrolled diabetes mellitus Qualifiers: Diabetes mellitus type: type 2 Glycemic state: with hyperglycemia Qualified Code(s): E11.65 - Type 2 diabetes mellitus with hyperglycemia Is this a current diagnosis for this admission?: Yes Plan: As noted above, apparently he gets his usual medications but his diet is not regulated, and I suspect there is a large degree of indiscretion. Once we get his blood sugar back under control with his usual insulin plus a sliding scale and regulation of his diet here, we will have to figure out a way to make sure his diet is regulated there for his diabetes so he does not keep coming back to the hospital like this. He has dementia and so he is not going to self regulate. 07/16/19 Patient was on Metformin 500 BID prior to admission. Now on sliding scale. Will add Metformin back. 07/17/2019 patient is on the metformin 500 mg twice daily as well as Lantus 25 units subcu looks as though fingerstick blood sugars are coming down gradually now into the 200s 07/18/2019 serum glucose this morning was 229, however fingersticks are running in the 300s. Medications as above, recommend increasing Lantus to 30 units 07/19/2019 serum glucose this morning is 229 and in fact his fingerstick blood sugar about 2 hours ago was 127. Glucose levels are under much much better control increasing his Lantus to 30 units 07/20/2019 Coast levels are well controlled, although this morning slightly elevated (4) Dementia Qualifiers: Dementia type: unspecified type Dementia behavioral disturbance: without behavioral disturbance Qualified Code(s): F03.90 - Unspecified dementia without behavioral disturbance Is this a current diagnosis for this admission?: Yes Plan: 07/16/19 Pateint was on Riesperdal 0.5 mg BID and Namenda 10 mg BID prior to coming in hospital. Will add these back. 07/17/2019 and is back on the above mentioned medications, dementia seems to fluctuate from day today 07/18/2019 patient appears to be less responsive today, appears to stare off though no particular direction 07 19 19 no change in dementia although decreased level of consciousness\\ 07/20/19 is more awake and alert this morning doing up in bed, talking to the nurses and myself (5) Multiple falls Is this a current diagnosis for this admission?: Yes Plan: Patient talks about falling into the kitchen table. Not sure if this is true. Due to dementia 07/17/2019 no evidence of falling here in the hospital patient does not get out of the bed unassisted side rails are up at all times 07/18/2019 no indication the patient tries to get out of bed unassisted 07/19/2019 he does try to get out of bed even though is not supposed to, and becomes agitated when not allowed to do so 07-20-19 Patient has been seen trying to get up out of bed, however nurses prevent him from doing so. - Time Time Spent with patient: 35 or more minutes - CT head scan shows nothing acute, CXR is clear, UA is negative for infection, labs appear normal. Continue to hold Risperdol for now.
[2019-07-20] MEDS: NORMAL SALINE 1000 ML 1,000 ML IV PRN (18:02)
[2019-07-20] MEDS: INSULIN GLARGINE,HUM.REC.ANLOG 1,000 UNIT/10 ML VIAL SUBCUT SCH (21:38)
[2019-07-20] MEDS: ATORVASTATIN CALCIUM 80 MG TABLET PO SCH (21:39)
[2019-07-21] MEDS: HEPARIN SOD (PORCINE) 5,000 UNIT/ML 1 ML VIAL SUBCUT SCH ×3 (10:07→21:14)
[2019-07-21] MEDS: INSULIN LISPRO 100 UNIT/ML 3 ML VIAL SUBCUT SCH ×5 (10:08→22:28)
[2019-07-21] MEDS: METFORMIN HCL 500 MG TABLET PO SCH ×2 (10:11→16:29)
[2019-07-21] MEDS: CLOPIDOGREL BISULFATE 75 MG TABLET PO SCH (10:11)
[2019-07-21] MEDS: CITALOPRAM HYDROBROMIDE 20 MG TABLET PO SCH (10:11)
[2019-07-21] MEDS: LISINOPRIL 5 MG TABLET PO SCH (10:11)
[2019-07-21] MEDS: METOPROLOL TARTRATE 25 MG TABLET PO SCH ×2 (10:11→22:27)
[2019-07-21] MEDS: MEMANTINE HCL 10 MG TABLET PO SCH (10:11)
--- NOTE | 2019-07-21 12:07 | PDOC PROGRESS REPORT ---
Subjective Progress Note for:: 07/21/19 Subjective:: 07/16/19 83-year-old male who was admitted from an assisted living facility who was just discharged from hospital 2 days ago for DKA. Patient has dementia and insulin DM Glucose on admission was 404, today it is 434 07/17/2019 is much more calm and less aggressive and hostile today, per the nurse he is having a better day. Patient is on a sliding scale of insulin normal saline at 75/h, Respinol 0.5 mg every 12 hours , Celexa 40 mg daily he is also using Ativan occasionally 0.5 mg every 4 hours and agitation Started metformin 500 mg twice daily and Lantus 25 units subcu nightly 07/18/2019 discussion yesterday evening with both sons and their wives concerning patient and his level of consciousness and skilll required Feel like patient will require a fpc facility at the time of discharge She is becoming more lethargic, they have decided to make patient a DNR 07/19/2019 patient today once again seems lethargic, however according to the johny ses last night even yesterday afternoon patient had to be given Thorazine, due to agitation 07/20/2019 according to the nurses patient had a much better night last night and today is awake alert and eating breakfast. There is some question about sleep deprivation as night nurse reports that patient has not slept previously for the last 48 hours, patient slept most of yesterday and most of last night. Patient's Respinol was DC'd yesterday, and the Thorazine was held due to no agitation. 07/21/2019 patient is once again much more alert starting to feed himself again, however he still tends to talk nonsensical, will say things that are inappropriate for the conversation. Will say things like he thinks is in a hotel will talk about people and past history of context. But he certainly is much more awake interactive today than 48 hours ago. Reason For Visit: HYPERGLYCEMIA Physical Exam Vital Signs: Temp Pulse Resp BP Pulse Ox 97.4 F 78 16 135/58 H 98 07/21/19 07:40 07/21/19 07:40 07/21/19 07:40 07/21/19 07:40 07/21/19 07:40 Intake & Output 07/20/19 07/21/19 07/22/19 06:59 06:59 06:59 Intake Total 1800 1380 Output Total 800 1195 Balance 1000 -1295 Weight 64.2 kg 68.9 kg General appearance: PRESENT: no acute distress Respiratory exam: PRESENT: clear to auscultation javier. ABSENT: rales, rhonchi, wheezes Cardiovascular exam: PRESENT: RRR. ABSENT: diastolic murmur, rubs, systolic murmur Neurological exam: PRESENT: alert, awake, oriented to person, oriented to place, oriented to time, oriented to situation, CN II-XII grossly intact. ABSENT: motor sensory deficit Psychiatric exam: PRESENT: appropriate affect, normal mood, other - Patient is not violent like he was the other day patient is not aggressive or hostile like he was the other day.. Patient seems to follow commands and react with the hospital staff, sometimes appropriately sometimes not. ABSENT: homicidal ideation, suicidal ideation Results Laboratory Results: 07/19/19 13:13 07/20/19 05:23 07/15/19 11:40 Blood Blood Culture - Final NO GROWTH IN 5 DAYS 07/15/19 10:39 Blood Blood Culture - Final NO GROWTH IN 5 DAYS Impressions: Modified Barium Swallow 07/18/19 00:00 IMPRESSION: LARYNGEAL PENETRATION AND ASPIRATION ABOVE. PLEASE SEE SPEECH PATHOLOGIST REPORT FOR OTHER FINDINGS AND RECOMMENDATIONS. Chest X-Ray 07/19/19 00:00 IMPRESSION: NO ACUTE FINDINGS. Head CT 07/19/19 11:51 IMPRESSION: Mild involutional changes and mild chronic microvascular ischemia. No acute intracranial imaging findings. EVIDENCE OF ACUTE STROKE: NO. Assessment and Plan - Diagnosis (1) Agitation Is this a current diagnosis for this admission?: Yes Plan: 07/16/19 Patient had to be given Haldol and Ativan IM this morning for agitation, threatening to strike the nurses, not allowing them to do their job. Patient has dementia reportedly 07/17/2019 patient is taking his risperdal all now 0.5 every 12 hours and using Ativan as needed. Much less agitation today. [id number] no sign of agitation patient lays in the bed and pretty much stares off into space at times patient does refuse to take p.o.'s as well as food 07/19/2019 required was seen twice yesterday for agitation with the nurses otherwise patient is sleeping 07/20/2019 no agitation last night, no agitation so far today 07/21/2019 no agitation that has required medication in the last 24 hours (2) UTI (urinary tract infection) Qualifiers: Urinary tract infection type: site unspecified Hematuria presence: with hematuria Qualified Code(s): N39.0 - Urinary tract infection, site not specified; R31.9 - Hematuria, unspecified Is this a current diagnosis for this admission?: Yes Plan: He grew out a Klebsiella when he was here on his last admission and is on Keflex which will be continued 07/16/19 Urine culture shows no growth in 1 day. On keflex 07/17/2019 final urine culture shows no growth in 2 days will DC Keflex 07/18/2019 no indictation of UTI 07/19/1919 we will repeat UA today at the family's request. Family wants to make sure the patient does not have "an infection" that may be causing his decreased level of consciousness. 07/20/2019 urinalysis is basically completely clear no indication for culture 07/21/2019 no sign of UTI (3) Uncontrolled diabetes mellitus Qualifiers: Diabetes mellitus type: type 2 Glycemic state: with hyperglycemia Qualified Code(s): E11.65 - Type 2 diabetes mellitus with hyperglycemia Is this a current diagnosis for this admission?: Yes Plan: As noted above, apparently he gets his usual medications but his diet is not regulated, and I suspect there is a large degree of indiscretion. Once we get his blood sugar back under control with his usual insulin plus a sliding scale and regulation of his diet here, we will have to figure out a way to make sure his diet is regulated there for his diabetes so he does not keep coming back to the hospital like this. He has dementia and so he is not going to self regulate. 07/16/19 Patient was on Metformin 500 BID prior to admission. Now on sliding scale. Will add Metformin back. 07/17/2019 patient is on the metformin 500 mg twice daily as well as Lantus 25 units subcu looks as though fingerstick blood sugars are coming down gradually now into the 200s 07/18/2019 serum glucose this morning was 229, however fingersticks are running in the 300s. Medications as above, recommend increasing Lantus to 30 units 07/19/2019 serum glucose this morning is 229 and in fact his fingerstick blood sugar about 2 hours ago was 127. Glucose levels are under much much better control increasing his Lantus to 30 units 07/20/2019 Coast levels are well controlled, although this morning slightly el evated 07 21 19 Leukos level seem to be better controlled today anywhere from 60-2 44 but actually had been running about low 100s certainly he has not significantly hyperglycemic (4) Dementia Qualifiers: Dementia type: unspecified type Dementia behavioral disturbance: without behavioral disturbance Qualified Code(s): F03.90 - Unspecified dementia without behavioral disturbance Is this a current diagnosis for this admission?: Yes Plan: 07/16/19 Pateint was on Riesperdal 0.5 mg BID and Namenda 10 mg BID prior to coming in hospital. Will add these back. 07/17/2019 and is back on the above mentioned medications, dementia seems to fluctuate from day today 07/18/2019 patient appears to be less responsive today, appears to stare off though no particular direction 07 19 19 no change in dementia although decreased level of consciousness\\ 07/20/19 is more awake and alert this morning doing up in bed, talking to the nurses and myself 07/21/2019 as above. Patient is still demented still says things that surprise his family is far as being out of touch with reality (5) Multiple falls Is this a current diagnosis for this admission?: Yes Plan: Patient talks about falling into the kitchen table. Not sure if this is true. Due to dementia 07/17/2019 no evidence of falling here in the hospital patient does not get out of the bed unassisted side rails are up at all times 07/18/2019 no indication the patient tries to get out of bed unassisted 07/19/2019 he does try to get out of bed even though is not supposed to, and becomes agitated when not allowed to do so 07-20-19 Patient has been seen trying to get up out of bed, however nurses prevent him from doing so. 07/21/2019 no histories of falls here in the hospital but I believe if he was up out of bed or trying to get out of bed that he definitely would fall, due to weakness and due to unsteady gait - Time Time Spent with patient: 35 or more minutes - Spoke to the son and [id number] who are in the room today with the patient discussed the negative work-up so far. Potential placement starting tomorrow
[2019-07-21] MEDS: CHLORPROMAZINE HCL INJ 25 MG/1 ML AMPULE IV PRN (16:42)
[2019-07-21] MEDS: RISPERIDONE 0.25 MG TABLET PO SCH (17:14)
[2019-07-21] MEDS: NORMAL SALINE 1000 ML 1,000 ML IV PRN (17:15)
[2019-07-21] MEDS: HYDRALAZINE HCL INJ/PF 20 MG/1 ML SDV IV PRN (19:56)
[2019-07-21] MEDS ORDERED: HALOPERIDOL LACTATE INJ 5 MG/1 ML VIAL ONE (21:48)
[2019-07-21] MEDS ORDERED: HALOPERIDOL LACTATE INJ 5 MG/1 ML VIAL IV PRN (21:55)
[2019-07-21] MEDS: ATORVASTATIN CALCIUM 80 MG TABLET PO SCH (22:26)
[2019-07-21] MEDS ORDERED: INSULIN LISPRO 100 UNIT/ML 3 ML VIAL SUBCUT ONE (22:45)
[2019-07-21] MEDS: HALOPERIDOL LACTATE INJ 5 MG/1 ML VIAL IV PRN (22:56)
[2019-07-21] MEDS: INSULIN GLARGINE,HUM.REC.ANLOG 1,000 UNIT/10 ML VIAL SUBCUT SCH (23:52)
[2019-07-22] MEDS: HEPARIN SOD (PORCINE) 5,000 UNIT/ML 1 ML VIAL SUBCUT SCH ×3 (05:20→21:17)
[2019-07-22] MEDS: INSULIN LISPRO 100 UNIT/ML 3 ML VIAL SUBCUT SCH ×4 (07:51→21:18)
[2019-07-22] MEDS: METFORMIN HCL 500 MG TABLET PO SCH ×3 (07:54→17:11)
[2019-07-22] MEDS: NORMAL SALINE 1000 ML 1,000 ML IV PRN ×2 (08:00→21:21)
[2019-07-22] MEDS: CLOPIDOGREL BISULFATE 75 MG TABLET PO SCH (09:58)
[2019-07-22] MEDS: LISINOPRIL 5 MG TABLET PO SCH (09:58)
[2019-07-22] MEDS: CITALOPRAM HYDROBROMIDE 20 MG TABLET PO SCH (09:58)
[2019-07-22] MEDS: METOPROLOL TARTRATE 25 MG TABLET PO SCH ×2 (09:58→21:18)
[2019-07-22] MEDS: RISPERIDONE 0.25 MG TABLET PO SCH ×2 (09:58→17:11)
[2019-07-22] MEDS: MEMANTINE HCL 10 MG TABLET PO SCH (09:58)
--- NOTE | 2019-07-22 13:19 | PDOC PROGRESS REPORT ---
Subjective Progress Note for:: 07/22/19 Subjective:: 07/16/19 83-year-old male who was admitted from an assisted living facility who was just discharged from hospital 2 days ago for DKA. Patient has dementia and insulin DM Glucose on admission was 404, today it is 434 07/17/2019 is much more calm and less aggressive and hostile today, per the nurse he is having a better day. Patient is on a sliding scale of insulin normal saline at 75/h, Respinol 0.5 mg every 12 hours , Celexa 40 mg daily he is also using Ativan occasionally 0.5 mg every 4 hours and agitation Started metformin 500 mg twice daily and Lantus 25 units subcu nightly 07/18/2019 discussion yesterday evening with both sons and their wives concerning patient and his level of consciousness and skilll required Feel like patient will require a senior living facility at the time of discharge She is becoming more lethargic, they have decided to make patient a DNR 07/19/2019 patient today once again seems lethargic, however according to the johny ses last night even yesterday afternoon patient had to be given Thorazine, due to agitation 07/20/2019 according to the nurses patient had a much better night last night and today is awake alert and eating breakfast. There is some question about sleep deprivation as night nurse reports that patient has not slept previously for the last 48 hours, patient slept most of yesterday and most of last night. Patient's Respinol was DC'd yesterday, and the Thorazine was held due to no agitation. 07/21/2019 patient is once again much more alert starting to feed himself again, however he still tends to talk nonsensical, will say things that are inappropriate for the conversation. Will say things like he thinks is in a hotel will talk about people and past history of context. But he certainly is much more awake interactive today than 48 hours ago. 07/22/2019 yesterday afternoon unfortunately patient pulled his Melendez out started being hateful mean and threatening to the nurses. Last night had to be put in restraints his safety as well as the nurses. Also had to be given IV Thorazine again. Today patient is once again somewhat hostile Reason For Visit: HYPERGLYCEMIA Physical Exam Vital Signs: Temp Pulse Resp BP Pulse Ox 97.4 F 73 18 140/63 H 96 07/22/19 07:28 07/22/19 07:28 07/22/19 07:28 07/22/19 07:28 07/22/19 07:28 Intake & Output 07/21/19 07/22/19 07/23/19 06:59 06:59 06:59 Intake Total 1380 2361 570 Output Total 2675 2200 Balance -1295 161 570 Weight 68.9 kg 59.5 kg General appearance: PRESENT: mild distress Respiratory exam: PRESENT: clear to auscultation javier. ABSENT: rales, rhonchi, wheezes Cardiovascular exam: PRESENT: RRR. ABSENT: diastolic murmur, rubs, systolic murmur Neurological exam: PRESENT: alert, altered, other Psychiatric exam: PRESENT: appropriate affect, flat affect - Patient has a look of hostility and aggression, normal mood. ABSENT: homicidal ideation, suicidal ideation Results Laboratory Results: 07/19/19 13:13 07/20/19 05:23 Impressions: Modified Barium Swallow 07/18/19 00:00 IMPRESSION: LARYNGEAL PENETRATION AND ASPIRATION ABOVE. PLEASE SEE SPEECH PATHOLOGIST REPORT FOR OTHER FINDINGS AND RECOMMENDATIONS. Chest X-Ray 07/19/19 00:00 IMPRESSION: NO ACUTE FINDINGS. Head CT 07/19/19 11:51 IMPRESSION: Mild involutional changes and mild chronic microvascular ischemia. No acute intracranial imaging findings. EVIDENCE OF ACUTE STROKE: NO. Assessment and Plan - Diagnosis (1) Agitation Is this a current diagnosis for this admission?: Yes Plan: 07/16/19 Patient had to be given Haldol and Ativan IM this morning for agitation, threatening to strike the nurses, not allowing them to do their job. Patient has dementia reportedly 07/17/2019 patient is taking his risperdal all now 0.5 every 12 hours and using Ativan as needed. Much less agitation today. [id number] no sign of agitation patient lays in the bed and pretty much stares off into space at times patient does refuse to take p.o.'s as well as food 07/19/2019 required was seen twice yesterday for agitation with the nurses otherwise patient is sleeping 07/20/2019 no agitation last night, no agitation so far today 07/21/2019 no agitation that has required medication in the last 24 hours 07/22/2019 patient was once again agitated and aggressive yesterday afternoon and last night. Patient pulled out his urinary catheter himself in the nurses had to be put in restraints and given Thorazine She received Thorazine yesterday afternoon at 1642 patient received a dose of Risperdal 0.25 mg morning at 10 AM patient received a dose of Haldol last night at approximately 2300 hrs. (2) UTI (urinary tract infection) Qualifiers: Urinary tract infection type: site unspecified Hematuria presence: with hematuria Qualified Code(s): N39.0 - Urinary tract infection, site not specified; R31.9 - Hematuria, unspecified Is this a current diagnosis for this admission?: Yes Plan: He grew out a Klebsiella when he was here on his last admission and is on Keflex which will be continued 07/16/19 Urine culture shows no growth in 1 day. On keflex 07/17/2019 final urine culture shows no growth in 2 days will DC Keflex 07/18/2019 no indictation of UTI 07/19/1919 we will repeat UA today at the family's request. Family wants to make sure the patient does not have "an infection" that may be causing his decreased level of consciousness. 07/20/2019 urinalysis is basically completely clear no indication for culture 07/21/2019 no sign of UTI 07/22/2019 patient pulled his catheter out yesterday no sign of bleeding today (3) Uncontrolled diabetes mellitus Qualifiers: Diabetes mellitus type: type 2 Glycemic state: with hyperglycemia Qualified Code(s): E11.65 - Type 2 diabetes mellitus with hyperglycemia Is this a current diagnosis for this admission?: Yes Plan: As noted above, apparently he gets his usual medications but his diet is not regulated, and I suspect there is a large degree of indiscretion. Once we get his blood sugar back under control with his usual insulin plus a sliding scale and regulation of his diet here, we will have to figure out a way to make sure his diet is regulated there for his diabetes so he does not keep coming back to the hospital like this. He has dementia and so he is not going to self regulate. 07/16/19 Patient was on Metformin 500 BID prior to admission. Now on sliding scale. Will add Metformin back. 07/17/2019 patient is on the metformin 500 mg twice daily as well as Lantus 25 units subcu looks as though fingerstick blood sugars are coming down gradually now into the 200s 07/18/2019 serum glucose this morning was 229, however fingersticks are running in the 300s. Medications as above, recommend increasing Lantus to 30 units 07/19/2019 serum glucose this morning is 229 and in fact his fingerstick blood sugar about 2 hours ago was 127. Glucose levels are under much much better control increasing his Lantus to 30 units 07/20/2019 glucose levels are well controlled, although this morning slightly elevated 07 21 19 glucose level seem to be better controlled today anywhere from 60-2 44 but actually had been running about low 100s certainly he has not significantly hyperglycemic 07 22 19 70 afternoon stick was 497 last night it was 468 his morning it was 100 at noontime it was 203. It appears that when patient's serum glucose was elevated yesterday afternoon and last night is when he was agitated and hostile and aggressive, though certainly he has been that way when his sugars were better controlled (4) Dementia Qualifiers: Dementia type: unspecified type Dementia behavioral disturbance: without behavioral disturbance Qualified Code(s): F03.90 - Unspecified dementia without behavioral disturbance Is this a current diagnosis for this admission?: Yes Plan: 07/16/19 Pateint was on Riesperdal 0.5 mg BID and Namenda 10 mg BID prior to coming in hospital. Will add these back. 07/17/2019 and is back on the above mentioned medications, dementia seems to fluctuate from day today 07/18/2019 patient appears to be less responsive today, appears to stare off tho ugh no particular direction 07 19 19 no change in dementia although decreased level of consciousness\\ 07/20/19 is more awake and alert this morning doing up in bed, talking to the nurses and myself 07/21/2019 as above. Patient is still demented still says things that surprise his family is far as being out of touch with reality 07/22/2019 patient is more disoriented and than oriented. Confused more often than not. (5) Multiple falls Is this a current diagnosis for this admission?: Yes Plan: Patient talks about falling into the kitchen table. Not sure if this is true. Due to dementia 07/17/2019 no evidence of falling here in the hospital patient does not get out of the bed unassisted side rails are up at all times 07/18/2019 no indication the patient tries to get out of bed unassisted 07/19/2019 he does try to get out of bed even though is not supposed to, and becomes agitated when not allowed to do so 07-20-19 Patient has been seen trying to get up out of bed, however nurses prevent him from doing so. 07/21/2019 no histories of falls here in the hospital but I believe if he was up out of bed or trying to get out of bed that he definitely would fall, due to weakness and due to unsteady gait 07/22/2019 patient has had no episodes of falling due to lack of ambulation and getting out of bed - Time Time Spent with patient: 35 or more minutes - I will discuss with discharge planning today to try to secure type of placement that he will need. I put a call into them
[2019-07-22] MEDS: ATORVASTATIN CALCIUM 80 MG TABLET PO SCH (21:18)
[2019-07-22] MEDS: INSULIN GLARGINE,HUM.REC.ANLOG 1,000 UNIT/10 ML VIAL SUBCUT SCH (21:19)
[2019-07-23] MEDS: HEPARIN SOD (PORCINE) 5,000 UNIT/ML 1 ML VIAL SUBCUT SCH ×3 (05:45→21:40)
[2019-07-23] MEDS: INSULIN LISPRO 100 UNIT/ML 3 ML VIAL SUBCUT SCH ×4 (07:34→21:44)
[2019-07-23] MEDS: METFORMIN HCL 500 MG TABLET PO SCH ×2 (07:43→16:33)
[2019-07-23] MEDS: CITALOPRAM HYDROBROMIDE 20 MG TABLET PO SCH (11:59)
[2019-07-23] MEDS: METOPROLOL TARTRATE 25 MG TABLET PO SCH ×2 (12:00→21:43)
[2019-07-23] MEDS: MEMANTINE HCL 10 MG TABLET PO SCH (12:00)
[2019-07-23] MEDS: CLOPIDOGREL BISULFATE 75 MG TABLET PO SCH (12:00)
[2019-07-23] MEDS: LISINOPRIL 5 MG TABLET PO SCH (12:00)
[2019-07-23] MEDS: RISPERIDONE 0.25 MG TABLET PO SCH ×2 (12:00→17:33)
--- NOTE | 2019-07-23 15:03 | PDOC PROGRESS REPORT ---
Subjective Progress Note for:: 07/23/19 Subjective:: No adverse events overnight. He has a history of getting hostile, especially in the evenings. Sometimes he can be settled down relatively easily. His blood sugars tend to be in the normal range in the morning, and they get progressively higher as the day goes on. Reason For Visit: HYPERGLYCEMIA Physical Exam Vital Signs: Temp Pulse Resp BP Pulse Ox 97.7 F 87 15 147/67 H 97 07/23/19 08:08 07/23/19 08:08 07/23/19 08:08 07/23/19 08:08 07/23/19 08:08 Intake & Output 07/22/19 07/23/19 07/24/19 06:59 06:59 06:59 Intake Total 2361 2050 Output Total 2200 1400 Balance 161 650 Weight 59.5 kg 69 kg General appearance: PRESENT: no acute distress, disheveled Respiratory exam: PRESENT: clear to auscultation javier, symmetrical, unlabored. ABSENT: accessory muscle use, chest wall tenderness, crackles, prolonged expiratory phas, rhonchi, tachypnea, wheezes Cardiovascular exam: PRESENT: RRR, +S1, +S2 Pulses: PRESENT: normal carotid pulses Vascular exam: PRESENT: normal capillary refill GI/Abdominal exam: PRESENT: normal bowel sounds, soft. ABSENT: distended, guarding, rebound, tenderness Extremities exam: ABSENT: clubbing, pedal edema Musculoskeletal exam: PRESENT: normal inspection. ABSENT: deformity Neurological exam: PRESENT: alert, awake, oriented to person. ABSENT: oriented to place, oriented to time, oriented to situation Psychiatric exam: PRESENT: flat affect Skin exam: PRESENT: dry, warm Results Laboratory Results: 07/19/19 13:13 07/20/19 05:23 Impressions: Modified Barium Swallow 07/18/19 00:00 IMPRESSION: LARYNGEAL PENETRATION AND ASPIRATION ABOVE. PLEASE SEE SPEECH PATHOLOGIST REPORT FOR OTHER FINDINGS AND RECOMMENDATIONS. Chest X-Ray 07/19/19 00:00 IMPRESSION: NO ACUTE FINDINGS. Head CT 07/19/19 11:51 IMPRESSION: Mild involutional changes and mild chronic microvascular ischemia. No acute intracranial imaging findings. EVIDENCE OF ACUTE STROKE: NO. Assessment and Plan - Diagnosis (1) Uncontrolled diabetes mellitus Qualifiers: Diabetes mellitus type: type 2 Glycemic state: with hyperglycemia Qualified Code(s): E11.65 - Type 2 diabetes mellitus with hyperglycemia Is this a current diagnosis for this admission?: Yes Plan: Currently on Lantus and a sliding scale. His blood sugars are great in the morning but then trend up as the day goes on. We may need to add a fixed dose to the sliding scale during the day. (2) UTI (urinary tract infection) Qualifiers: Urinary tract infection type: site unspecified Hematuria presence: with hematuria Qualified Code(s): N39.0 - Urinary tract infection, site not specified; R31.9 - Hematuria, unspecified Is this a current diagnosis for this admission?: Yes Plan: Resolved - Time Time Spent with patient: 15-24 minutes - Plan Summary Plan Summary: Pending placement
[2019-07-23] MEDS: NORMAL SALINE 1000 ML 1,000 ML IV PRN (19:37)
[2019-07-23] MEDS: HYDRALAZINE HCL INJ/PF 20 MG/1 ML SDV IV PRN (19:40)
[2019-07-23] MEDS: ATORVASTATIN CALCIUM 80 MG TABLET PO SCH (21:43)
[2019-07-23] MEDS: INSULIN GLARGINE,HUM.REC.ANLOG 1,000 UNIT/10 ML VIAL SUBCUT SCH (21:44)
[2019-07-24] MEDS: HALOPERIDOL LACTATE INJ 5 MG/1 ML VIAL IV PRN ×3 (02:28→21:48)
[2019-07-24] MEDS: HEPARIN SOD (PORCINE) 5,000 UNIT/ML 1 ML VIAL SUBCUT SCH ×3 (05:33→21:50)
[2019-07-24] MEDS: DEXTROSE 50%-WATER 25 GM/50 ML DISP.SYRIN IV PRN (06:42)
[2019-07-24] MEDS: INSULIN LISPRO 100 UNIT/ML 3 ML VIAL SUBCUT SCH ×4 (07:20→21:43)
[2019-07-24] MEDS: METFORMIN HCL 500 MG TABLET PO SCH ×2 (07:45→16:58)
[2019-07-24] MEDS: CLOPIDOGREL BISULFATE 75 MG TABLET PO SCH (10:03)
[2019-07-24] MEDS: RISPERIDONE 0.25 MG TABLET PO SCH ×2 (10:03→18:13)
[2019-07-24] MEDS: METOPROLOL TARTRATE 25 MG TABLET PO SCH ×2 (10:03→21:50)
[2019-07-24] MEDS: MEMANTINE HCL 10 MG TABLET PO SCH (10:03)
[2019-07-24] MEDS: LISINOPRIL 5 MG TABLET PO SCH (10:03)
[2019-07-24] MEDS: CITALOPRAM HYDROBROMIDE 20 MG TABLET PO SCH (10:04)
--- NOTE | 2019-07-24 15:49 | PDOC PROGRESS REPORT ---
Subjective Progress Note for:: 07/24/19 Subjective:: He got a little agitated again last night which is not uncommon for him. Blood sugar control has been much improved today. Vital signs been stable. Reason For Visit: HYPERGLYCEMIA Physical Exam Vital Signs: Temp Pulse Resp BP Pulse Ox 97.6 F 75 20 162/63 H 99 07/24/19 11:50 07/24/19 11:50 07/24/19 11:50 07/24/19 11:50 07/24/19 11:50 Intake & Output 07/23/19 07/24/19 07/25/19 06:59 06:59 06:59 Intake Total 2050 1924 490 Output Total 1400 1500 1181 Balance 650 424 -691 Weight 69 kg 66 kg General appearance: PRESENT: no acute distress, disheveled Respiratory exam: PRESENT: clear to auscultation javier, symmetrical, unlabored. ABSENT: accessory muscle use, chest wall tenderness, crackles, prolonged expiratory phas, rhonchi, tachypnea, wheezes Cardiovascular exam: PRESENT: RRR, +S1, +S2 Pulses: PRESENT: normal carotid pulses Vascular exam: PRESENT: normal capillary refill GI/Abdominal exam: PRESENT: normal bowel sounds, soft. ABSENT: distended, guarding, rebound, tenderness Extremities exam: ABSENT: clubbing, pedal edema Musculoskeletal exam: PRESENT: normal inspection. ABSENT: deformity Neurological exam: PRESENT: alert, awake, oriented to person. ABSENT: oriented to place, oriented to time, oriented to situation Psychiatric exam: PRESENT: flat affect Skin exam: PRESENT: dry, warm Results Laboratory Results: 07/19/19 13:13 07/20/19 05:23 Impressions: Modified Barium Swallow 07/18/19 00:00 IMPRESSION: LARYNGEAL PENETRATION AND ASPIRATION ABOVE. PLEASE SEE SPEECH PATHOLOGIST REPORT FOR OTHER FINDINGS AND RECOMMENDATIONS. Chest X-Ray 07/19/19 00:00 IMPRESSION: NO ACUTE FINDINGS. Head CT 07/19/19 11:51 IMPRESSION: Mild involutional changes and mild chronic microvascular ischemia. No acute intracranial imaging findings. EVIDENCE OF ACUTE STROKE: NO. Assessment and Plan - Diagnosis (1) Uncontrolled diabetes mellitus Qualifiers: Diabetes mellitus type: type 2 Glycemic state: with hyperglycemia Qualified Code(s): E11.65 - Type 2 diabetes mellitus with hyperglycemia Is this a current diagnosis for this admission?: Yes Plan: Control has improved substantially today and his blood sugars have been excell ent. We will continue current treatment. (2) UTI (urinary tract infection) Qualifiers: Urinary tract infection type: site unspecified Hematuria presence: with hematuria Qualified Code(s): N39.0 - Urinary tract infection, site not specified; R31.9 - Hematuria, unspecified Is this a current diagnosis for this admission?: Yes Plan: Resolved - Time Time Spent with patient: 15-24 minutes - Plan Summary Plan Summary: I think there were trying to get him a bed at [facility] but I do not think there were going to accept him. We will follow-up with case management regarding plan for his disposition.
[2019-07-24] MEDS: CHLORPROMAZINE HCL INJ 25 MG/1 ML AMPULE IV PRN (20:35)
[2019-07-24] MEDS: INSULIN GLARGINE,HUM.REC.ANLOG 1,000 UNIT/10 ML VIAL SUBCUT SCH (21:43)
[2019-07-24] MEDS: ATORVASTATIN CALCIUM 80 MG TABLET PO SCH (21:50)
[2019-07-25] MEDS: HEPARIN SOD (PORCINE) 5,000 UNIT/ML 1 ML VIAL SUBCUT SCH ×3 (05:43→22:00)
[2019-07-25] MEDS: INSULIN LISPRO 100 UNIT/ML 3 ML VIAL SUBCUT SCH ×4 (07:31→21:59)
[2019-07-25] MEDS: CLOPIDOGREL BISULFATE 75 MG TABLET PO SCH (09:01)
[2019-07-25] MEDS: CITALOPRAM HYDROBROMIDE 20 MG TABLET PO SCH (09:01)
[2019-07-25] MEDS: METOPROLOL TARTRATE 25 MG TABLET PO SCH ×2 (09:01→22:01)
[2019-07-25] MEDS: LISINOPRIL 5 MG TABLET PO SCH (09:02)
[2019-07-25] MEDS: RISPERIDONE 0.25 MG TABLET PO SCH ×2 (09:02→17:24)
[2019-07-25] MEDS: MEMANTINE HCL 10 MG TABLET PO SCH (09:03)
[2019-07-25] MEDS: METFORMIN HCL 500 MG TABLET PO SCH ×2 (09:03→17:24)
[2019-07-25] MEDS: HYDRALAZINE HCL INJ/PF 20 MG/1 ML SDV IV PRN (09:04)
--- NOTE | 2019-07-25 17:06 | PDOC PROGRESS REPORT ---
Subjective Progress Note for:: 07/25/19 Subjective:: No adverse events overnight. No new complaints. Blood sugars have been labile again today. His control yesterday was very good, but today his blood sugars have been up and down. To the best of my knowledge, he is not getting anything to eat other than what we bring him. Reason For Visit: HYPERGLYCEMIA Physical Exam Vital Signs: Temp Pulse Resp BP Pulse Ox 98.5 F 82 16 134/53 H 97 07/25/19 15:45 07/25/19 15:45 07/25/19 15:45 07/25/19 15:45 07/25/19 15:45 Intake & Output 07/24/19 07/25/19 07/26/19 06:59 06:59 06:59 Intake Total 1924 1850 240 Output Total 1500 1381 350 Balance 424 469 -110 Weight 66 kg 69.3 kg General appearance: PRESENT: no acute distress, disheveled Respiratory exam: PRESENT: clear to auscultation javier, symmetrical, unlabored. ABSENT: accessory muscle use, chest wall tenderness, crackles, prolonged expiratory phas, rhonchi, tachypnea, wheezes Cardiovascular exam: PRESENT: RRR, +S1, +S2 Pulses: PRESENT: normal carotid pulses Vascular exam: PRESENT: normal capillary refill GI/Abdominal exam: PRESENT: normal bowel sounds, soft. ABSENT: distended, guarding, rebound, tenderness Extremities exam: ABSENT: clubbing, pedal edema Musculoskeletal exam: PRESENT: normal inspection. ABSENT: deformity Neurological exam: PRESENT: alert, awake, oriented to person. ABSENT: oriented to place, oriented to time, oriented to situation Psychiatric exam: PRESENT: flat affect Skin exam: PRESENT: dry, warm Results Laboratory Results: 07/19/19 13:13 07/20/19 05:23 Impressions: Modified Barium Swallow 07/18/19 00:00 IMPRESSION: LARYNGEAL PENETRATION AND ASPIRATION ABOVE. PLEASE SEE SPEECH PATHOLOGIST REPORT FOR OTHER FINDINGS AND RECOMMENDATIONS. Chest X-Ray 07/19/19 00:00 IMPRESSION: NO ACUTE FINDINGS. Head CT 07/19/19 11:51 IMPRESSION: Mild involutional changes and mild chronic microvascular ischemia. No acute intracranial imaging findings. EVIDENCE OF ACUTE STROKE: NO. Assessment and Plan - Diagnosis (1) Uncontrolled diabetes mellitus Qualifiers: Diabetes mellitus type: type 2 Glycemic state: with hyperglycemia Qualified Code(s): E11.65 - Type 2 diabetes mellitus with hyperglycemia Is this a current diagnosis for this admission?: Yes Plan: Control is once again difficult. Today his blood sugars were labile again, between 90 and 300. This is fairly common for him. I am reluctant to increase his insulin any further because I am afraid that doing so will cause his lows to be even lower. (2) UTI (urinary tract infection) Qualifiers: Urinary tract infection type: site unspecified Hematuria presence: with hematuria Qualified Code(s): N39.0 - Urinary tract infection, site not specified; R31.9 - Hematuria, unspecified Is this a current diagnosis for this admission?: Yes Plan: Resolved (3) Dementia Qualifiers: Dementia type: Alzheimer's disease Dementia behavioral disturbance: with behavioral disturbance Qualified Code(s): F03.90 - Unspecified dementia without behavioral disturbance Is this a current diagnosis for this admission?: Yes Plan: Case management is currently working on placement. - Time Time Spent with patient: 15-24 minutes
[2019-07-25] MEDS: INSULIN GLARGINE,HUM.REC.ANLOG 1,000 UNIT/10 ML VIAL SUBCUT SCH (21:59)
[2019-07-25] MEDS: ATORVASTATIN CALCIUM 80 MG TABLET PO SCH (22:01)
[2019-07-26] MEDS: HEPARIN SOD (PORCINE) 5,000 UNIT/ML 1 ML VIAL SUBCUT SCH ×3 (05:10→21:53)
[2019-07-26] MEDS: INSULIN LISPRO 100 UNIT/ML 3 ML VIAL SUBCUT SCH ×4 (07:35→21:51)
[2019-07-26] MEDS: METFORMIN HCL 500 MG TABLET PO SCH ×2 (07:35→16:50)
[2019-07-26] MEDS: CITALOPRAM HYDROBROMIDE 20 MG TABLET PO SCH (10:11)
[2019-07-26] MEDS: METOPROLOL TARTRATE 25 MG TABLET PO SCH ×2 (10:11→21:50)
[2019-07-26] MEDS: RISPERIDONE 0.25 MG TABLET PO SCH ×2 (10:12→17:05)
[2019-07-26] MEDS: LISINOPRIL 5 MG TABLET PO SCH (10:12)
[2019-07-26] MEDS: CLOPIDOGREL BISULFATE 75 MG TABLET PO SCH (10:12)
[2019-07-26] MEDS: MEMANTINE HCL 10 MG TABLET PO SCH (10:12)
--- NOTE | 2019-07-26 16:29 | PDOC PROGRESS REPORT ---
Subjective Progress Note for:: 07/26/19 Subjective:: No adverse events overnight. No new complaints. Blood sugars remain fairly labile. Reason For Visit: HYPERGLYCEMIA Physical Exam Vital Signs: Temp Pulse Resp BP Pulse Ox 98.4 F 69 17 107/48 L 96 07/26/19 12:06 07/26/19 12:06 07/26/19 12:06 07/26/19 12:06 07/26/19 12:06 Intake & Output 07/25/19 07/26/19 07/27/19 06:59 06:59 06:59 Intake Total 1850 1080 476 Output Total 1381 350 150 Balance 469 730 326 Weight 69.3 kg 68.4 kg General appearance: PRESENT: no acute distress, disheveled Respiratory exam: PRESENT: clear to auscultation javier, symmetrical, unlabored. ABSENT: accessory muscle use, chest wall tenderness, crackles, prolonged expiratory phas, rhonchi, tachypnea, wheezes Cardiovascular exam: PRESENT: RRR, +S1, +S2 Pulses: PRESENT: normal carotid pulses Vascular exam: PRESENT: normal capillary refill GI/Abdominal exam: PRESENT: normal bowel sounds, soft. ABSENT: distended, guarding, rebound, tenderness Extremities exam: ABSENT: clubbing, pedal edema Musculoskeletal exam: PRESENT: normal inspection. ABSENT: deformity Neurological exam: PRESENT: alert, awake, oriented to person. ABSENT: oriented to place, oriented to time, oriented to situation Psychiatric exam: PRESENT: flat affect Skin exam: PRESENT: dry, warm Results Laboratory Results: 07/19/19 13:13 07/20/19 05:23 Impressions: Modified Barium Swallow 07/18/19 00:00 IMPRESSION: LARYNGEAL PENETRATION AND ASPIRATION ABOVE. PLEASE SEE SPEECH PATHOLOGIST REPORT FOR OTHER FINDINGS AND RECOMMENDATIONS. Chest X-Ray 07/19/19 00:00 IMPRESSION: NO ACUTE FINDINGS. Head CT 07/19/19 11:51 IMPRESSION: Mild involutional changes and mild chronic microvascular ischemia. No acute intracranial imaging findings. EVIDENCE OF ACUTE STROKE: NO. Assessment and Plan - Diagnosis (1) Uncontrolled diabetes mellitus Qualifiers: Diabetes mellitus type: type 2 Glycemic state: with hyperglycemia Qualified Code(s): E11.65 - Type 2 diabetes mellitus with hyperglycemia Is this a current diagnosis for this admission?: Yes Plan: Control is once again difficult. Today his blood sugars were labile again, between 130 and 310, with no obvious pattern. This is fairly common for him. He typically eats most everything that is brought to him. I am reluctant to increase his insulin any further because I am afraid that doing so will cause his lows to be even lower. (2) UTI (urinary tract infection) Qualifiers: Urinary tract infection type: site unspecified Hematuria presence: with hematuria Qualified Code(s): N39.0 - Urinary tract infection, site not specified; R31.9 - Hematuria, unspecified Is this a current diagnosis for this admission?: Yes Plan: Resolved (3) Dementia Qualifiers: Dementia type: Alzheimer's disease Dementia behavioral disturbance: with behavioral disturbance Is this a current diagnosis for this admission?: Yes Plan: Case management is currently working on placement. - Time Time Spent with patient: 15-24 minutes
[2019-07-26] MEDS: INSULIN GLARGINE,HUM.REC.ANLOG 1,000 UNIT/10 ML VIAL SUBCUT SCH (21:50)
[2019-07-26] MEDS: ATORVASTATIN CALCIUM 80 MG TABLET PO SCH (21:51)
[2019-07-27] MEDS: HEPARIN SOD (PORCINE) 5,000 UNIT/ML 1 ML VIAL SUBCUT SCH ×3 (05:36→21:38)
[2019-07-27] MEDS: INSULIN LISPRO 100 UNIT/ML 3 ML VIAL SUBCUT SCH ×4 (08:00→21:36)
[2019-07-27] MEDS: METFORMIN HCL 500 MG TABLET PO SCH ×2 (09:34→17:09)
[2019-07-27] MEDS: METOPROLOL TARTRATE 25 MG TABLET PO SCH ×2 (09:35→21:37)
[2019-07-27] MEDS: CLOPIDOGREL BISULFATE 75 MG TABLET PO SCH (09:35)
[2019-07-27] MEDS: RISPERIDONE 0.25 MG TABLET PO SCH ×2 (09:35→17:10)
[2019-07-27] MEDS: MEMANTINE HCL 10 MG TABLET PO SCH (09:35)
[2019-07-27] MEDS: CITALOPRAM HYDROBROMIDE 20 MG TABLET PO SCH (09:35)
[2019-07-27] MEDS: LISINOPRIL 5 MG TABLET PO SCH (09:35)
--- NOTE | 2019-07-27 16:10 | PDOC PROGRESS REPORT ---
Subjective Progress Note for:: 07/27/19 Subjective:: No adverse events overnight. No new complaints. Blood sugars remain fairly labile. He sitting up in the chair talking with a hospital volunteer today and was fairly pleasant. Reason For Visit: HYPERGLYCEMIA Physical Exam Vital Signs: Temp Pulse Resp BP Pulse Ox 97.7 F 74 17 122/56 L 96 07/27/19 10:54 07/27/19 10:54 07/27/19 10:54 07/27/19 10:54 07/27/19 10:54 Intake & Output 07/26/19 07/27/19 07/28/19 06:59 06:59 06:59 Intake Total 1080 1036 240 Output Total 350 900 400 Balance 730 136 -160 Weight 68.4 kg 69.4 kg General appearance: PRESENT: no acute distress, disheveled Respiratory exam: PRESENT: clear to auscultation javier, symmetrical, unlabored. ABSENT: accessory muscle use, chest wall tenderness, crackles, prolonged expiratory phas, rhonchi, tachypnea, wheezes Cardiovascular exam: PRESENT: RRR, +S1, +S2 Pulses: PRESENT: normal carotid pulses Vascular exam: PRESENT: normal capillary refill GI/Abdominal exam: PRESENT: normal bowel sounds, soft. ABSENT: distended, guarding, rebound, tenderness Extremities exam: ABSENT: clubbing, pedal edema Musculoskeletal exam: PRESENT: normal inspection. ABSENT: deformity Neurological exam: PRESENT: alert, awake, oriented to person. ABSENT: oriented to place, oriented to time, oriented to situation Psychiatric exam: PRESENT: flat affect Skin exam: PRESENT: dry, warm Results Laboratory Results: 07/19/19 13:13 07/20/19 05:23 Impressions: Modified Barium Swallow 07/18/19 00:00 IMPRESSION: LARYNGEAL PENETRATION AND ASPIRATION ABOVE. PLEASE SEE SPEECH PATHOLOGIST REPORT FOR OTHER FINDINGS AND RECOMMENDATIONS. Chest X-Ray 07/19/19 00:00 IMPRESSION: NO ACUTE FINDINGS. Head CT 07/19/19 11:51 IMPRESSION: Mild involutional changes and mild chronic microvascular ischemia. No acute intracranial imaging findings. EVIDENCE OF ACUTE STROKE: NO. Assessment and Plan - Diagnosis (1) Uncontrolled diabetes mellitus Qualifiers: Diabetes mellitus type: type 2 Glycemic state: with hyperglycemia Qualified Code(s): E11.65 - Type 2 diabetes mellitus with hyperglycemia Is this a current diagnosis for this admission?: Yes Plan: Control is once again difficult. Today his blood sugars were labile again, between 68 and 310, with no obvious pattern. This is fairly common for him. He typically eats most everything that is brought to him. I am reluctant to increase his insulin any further because I am afraid that doing so will cause his lows to be even lower. I am going to try to split his Lantus into 2 smaller doses to see if that will keep his sugars from being so labile. (2) UTI (urinary tract infection) Qualifiers: Urinary tract infection type: site unspecified Hematuria presence: with hematuria Qualified Code(s): N39.0 - Urinary tract infection, site not specified; R31.9 - Hematuria, unspecified Is this a current diagnosis for this admission?: Yes Plan: Resolved (3) Dementia Qualifiers: Dementia type: Alzheimer's disease Dementia behavioral disturbance: with behavioral disturbance Is this a current diagnosis for this admission?: Yes Plan: Case management is currently working on placement. - Time Time Spent with patient: 15-24 minutes
[2019-07-27] MEDS: ATORVASTATIN CALCIUM 80 MG TABLET PO SCH (21:38)
[2019-07-27] MEDS ORDERED: INSULIN GLARGINE,HUM.REC.ANLOG 1,000 UNIT/10 ML VIAL SUBCUT SCH (22:00)
[2019-07-28] MEDS: HEPARIN SOD (PORCINE) 5,000 UNIT/ML 1 ML VIAL SUBCUT SCH ×3 (05:15→21:36)
[2019-07-28] MEDS: INSULIN LISPRO 100 UNIT/ML 3 ML VIAL SUBCUT SCH ×4 (08:00→21:40)
[2019-07-28] MEDS: INSULIN GLARGINE,HUM.REC.ANLOG 1,000 UNIT/10 ML VIAL SUBCUT SCH ×2 (10:00→21:42)
[2019-07-28] MEDS: METFORMIN HCL 500 MG TABLET PO SCH ×2 (10:04→18:34)
[2019-07-28] MEDS: RISPERIDONE 0.25 MG TABLET PO SCH ×2 (10:05→20:10)
[2019-07-28] MEDS: CLOPIDOGREL BISULFATE 75 MG TABLET PO SCH (10:05)
[2019-07-28] MEDS: CITALOPRAM HYDROBROMIDE 20 MG TABLET PO SCH (10:05)
[2019-07-28] MEDS: METOPROLOL TARTRATE 25 MG TABLET PO SCH ×2 (10:05→21:34)
[2019-07-28] MEDS: LISINOPRIL 5 MG TABLET PO SCH (10:05)
[2019-07-28] MEDS: MEMANTINE HCL 10 MG TABLET PO SCH (10:05)
[2019-07-28] MEDS: CHLORPROMAZINE HCL INJ 25 MG/1 ML AMPULE IV PRN (10:50)
--- NOTE | 2019-07-28 14:59 | PDOC PROGRESS REPORT ---
Subjective Progress Note for:: 07/28/19 Subjective:: No adverse events overnight. No new complaints. Blood sugars have improved but his morning sugar was a little low. Reason For Visit: HYPERGLYCEMIA Physical Exam Vital Signs: Temp Pulse Resp BP Pulse Ox 98.8 F 67 14 138/59 H 99 07/28/19 12:00 07/28/19 12:00 07/28/19 12:00 07/28/19 12:00 07/28/19 12:00 Intake & Output 07/27/19 07/28/19 07/29/19 06:59 06:59 06:59 Intake Total 1036 1210 Output Total 900 925 Balance 136 285 Weight 69.4 kg 68.2 kg General appearance: PRESENT: no acute distress, disheveled Respiratory exam: PRESENT: clear to auscultation javier, symmetrical, unlabored. ABSENT: accessory muscle use, chest wall tenderness, crackles, prolonged expiratory phas, rhonchi, tachypnea, wheezes Cardiovascular exam: PRESENT: RRR, +S1, +S2 Pulses: PRESENT: normal carotid pulses Vascular exam: PRESENT: normal capillary refill GI/Abdominal exam: PRESENT: normal bowel sounds, soft. ABSENT: distended, guarding, rebound, tenderness Extremities exam: ABSENT: clubbing, pedal edema Musculoskeletal exam: PRESENT: normal inspection. ABSENT: deformity Neurological exam: PRESENT: alert, awake, oriented to person. ABSENT: oriented to place, oriented to time, oriented to situation Psychiatric exam: PRESENT: flat affect Skin exam: PRESENT: dry, warm Results Laboratory Results: 07/19/19 13:13 07/20/19 05:23 Impressions: Modified Barium Swallow 07/18/19 00:00 IMPRESSION: LARYNGEAL PENETRATION AND ASPIRATION ABOVE. PLEASE SEE SPEECH PATHOLOGIST REPORT FOR OTHER FINDINGS AND RECOMMENDATIONS. Chest X-Ray 07/19/19 00:00 IMPRESSION: NO ACUTE FINDINGS. Head CT 07/19/19 11:51 IMPRESSION: Mild involutional changes and mild chronic microvascular ischemia. No acute intracranial imaging findings. EVIDENCE OF ACUTE STROKE: NO. Assessment and Plan - Diagnosis (1) Uncontrolled diabetes mellitus Qualifiers: Diabetes mellitus type: type 2 Glycemic state: with hyperglycemia Qualified Code(s): E11.65 - Type 2 diabetes mellitus with hyperglycemia Is this a current diagnosis for this admission?: Yes Plan: By cutting his Lantus in half and giving him dividing doses, his blood sugar control has improved substantially. However, his morning glucose was pretty low, so I am going to slightly reduce his evening dose. (2) UTI (urinary tract infection) Qualifiers: Urinary tract infection type: site unspecified Hematuria presence: with hematuria Qualified Code(s): N39.0 - Urinary tract infection, site not specified; R31.9 - Hematuria, unspecified Is this a current diagnosis for this admission?: Yes Plan: Resolved (3) Dementia Qualifiers: Dementia type: Alzheimer's disease Dementia behavioral disturbance: with behavioral disturbance Is this a current diagnosis for this admission?: Yes Plan: Case management is currently working on placement. - Time Time Spent with patient: 15-24 minutes
[2019-07-28] MEDS: HALOPERIDOL LACTATE INJ 5 MG/1 ML VIAL IV PRN (20:09)
[2019-07-28] MEDS: ATORVASTATIN CALCIUM 80 MG TABLET PO SCH (21:33)
[2019-07-29] MEDS: HEPARIN SOD (PORCINE) 5,000 UNIT/ML 1 ML VIAL SUBCUT SCH ×3 (05:50→21:34)
[2019-07-29] MEDS: INSULIN LISPRO 100 UNIT/ML 3 ML VIAL SUBCUT SCH ×4 (08:22→21:40)
[2019-07-29] MEDS: METFORMIN HCL 500 MG TABLET PO SCH ×2 (08:24→17:25)
[2019-07-29] MEDS: CITALOPRAM HYDROBROMIDE 20 MG TABLET PO SCH (09:24)
[2019-07-29] MEDS: MEMANTINE HCL 10 MG TABLET PO SCH (09:24)
[2019-07-29] MEDS: LISINOPRIL 5 MG TABLET PO SCH (09:25)
[2019-07-29] MEDS: CLOPIDOGREL BISULFATE 75 MG TABLET PO SCH (09:25)
[2019-07-29] MEDS: METOPROLOL TARTRATE 25 MG TABLET PO SCH ×2 (09:25→21:35)
[2019-07-29] MEDS: RISPERIDONE 0.25 MG TABLET PO SCH ×2 (09:26→17:25)
[2019-07-29] MEDS: INSULIN GLARGINE,HUM.REC.ANLOG 1,000 UNIT/10 ML VIAL SUBCUT SCH ×2 (09:28→21:36)
--- NOTE | 2019-07-29 17:53 | PDOC PROGRESS REPORT ---
Subjective Progress Note for:: 07/29/19 Subjective:: No adverse events overnight. No new complaints. I decreased his Lantus from 18 units to 15 units last night and today his blood sugars are back up in the high 100s and low 200s. For the most part he seems to be eating most if not all of his meals with a couple of exceptions. Reason For Visit: HYPERGLYCEMIA Physical Exam Vital Signs: Temp Pulse Resp BP Pulse Ox 98.3 F 70 21 H 140/52 H 100 07/29/19 08:11 07/29/19 08:11 07/29/19 08:11 07/29/19 08:11 07/29/19 08:11 Intake & Output 07/28/19 07/29/19 07/30/19 06:59 06:59 06:59 Intake Total 1210 Output Total 925 0 Balance 285 0 Weight 68.2 kg 70.3 kg General appearance: PRESENT: no acute distress, disheveled Respiratory exam: PRESENT: clear to auscultation javier, symmetrical, unlabored. ABSENT: accessory muscle use, chest wall tenderness, crackles, prolonged expiratory phas, rhonchi, tachypnea, wheezes Cardiovascular exam: PRESENT: RRR, +S1, +S2 Pulses: PRESENT: normal carotid pulses Vascular exam: PRESENT: normal capillary refill GI/Abdominal exam: PRESENT: normal bowel sounds, soft. ABSENT: distended, guarding, rebound, tenderness Extremities exam: ABSENT: clubbing, pedal edema Musculoskeletal exam: PRESENT: normal inspection. ABSENT: deformity Neurological exam: PRESENT: alert, awake, oriented to person. ABSENT: oriented to place, oriented to time, oriented to situation Psychiatric exam: PRESENT: flat affect Skin exam: PRESENT: dry, warm Results Laboratory Results: 07/19/19 13:13 07/20/19 05:23 Impressions: Modified Barium Swallow 07/18/19 00:00 IMPRESSION: LARYNGEAL PENETRATION AND ASPIRATION ABOVE. PLEASE SEE SPEECH PATHOLOGIST REPORT FOR OTHER FINDINGS AND RECOMMENDATIONS. Chest X-Ray 07/19/19 00:00 IMPRESSION: NO ACUTE FINDINGS. Head CT 07/19/19 11:51 IMPRESSION: Mild involutional changes and mild chronic microvascular ischemia. No acute intracranial imaging findings. EVIDENCE OF ACUTE STROKE: NO. Assessment and Plan - Diagnosis (1) Uncontrolled diabetes mellitus Qualifiers: Diabetes mellitus type: type 2 Glycemic state: with hyperglycemia Qualified Code(s): E11.65 - Type 2 diabetes mellitus with hyperglycemia Is this a current diagnosis for this admission?: Yes Plan: I adjusted his Lantus last night with the after mentioned effect. I am just can leave things alone and see how he does again for another day. (2) UTI (urinary tract infection) Qualifiers: Urinary tract infection type: site unspecified Hematuria presence: with hematuria Qualified Code(s): N39.0 - Urinary tract infection, site not specified; R31.9 - Hematuria, unspecified Is this a current diagnosis for this admission?: Yes Plan: Resolved (3) Dementia Qualifiers: Dementia type: Alzheimer's disease Dementia behavioral disturbance: with behavioral disturbance Is this a current diagnosis for this admission?: Yes Plan: Case management is currently working on placement. - Time Time Spent with patient: 15-24 minutes
[2019-07-29] MEDS: ATORVASTATIN CALCIUM 80 MG TABLET PO SCH (21:35)
[2019-07-30] MEDS: HEPARIN SOD (PORCINE) 5,000 UNIT/ML 1 ML VIAL SUBCUT SCH ×3 (05:52→21:54)
[2019-07-30] MEDS: DEXTROSE 50%-WATER 25 GM/50 ML DISP.SYRIN IV PRN (06:51)
[2019-07-30] MEDS: INSULIN LISPRO 100 UNIT/ML 3 ML VIAL SUBCUT SCH ×4 (07:48→22:02)
[2019-07-30] MEDS: CLOPIDOGREL BISULFATE 75 MG TABLET PO SCH (09:22)
[2019-07-30] MEDS: RISPERIDONE 0.25 MG TABLET PO SCH ×2 (09:22→17:32)
[2019-07-30] MEDS: CITALOPRAM HYDROBROMIDE 20 MG TABLET PO SCH (09:22)
[2019-07-30] MEDS: MEMANTINE HCL 10 MG TABLET PO SCH (09:22)
[2019-07-30] MEDS: LISINOPRIL 5 MG TABLET PO SCH (09:22)
[2019-07-30] MEDS: METOPROLOL TARTRATE 25 MG TABLET PO SCH ×2 (09:23→21:51)
[2019-07-30] MEDS: METFORMIN HCL 500 MG TABLET PO SCH ×2 (09:23→16:23)
[2019-07-30] MEDS: INSULIN GLARGINE,HUM.REC.ANLOG 1,000 UNIT/10 ML VIAL SUBCUT SCH (09:25)
--- NOTE | 2019-07-30 12:43 | PDOC PROGRESS REPORT ---
Subjective Progress Note for:: 07/30/19 Subjective:: 07/16/19 83-year-old male who was admitted from an assisted living facility who was just discharged from hospital 2 days ago for DKA. Patient has dementia and insulin DM Glucose on admission was 404, today it is 434 07/17/2019 is much more calm and less aggressive and hostile today, per the nurse he is having a better day. Patient is on a sliding scale of insulin normal saline at 75/h, Respinol 0.5 mg every 12 hours , Celexa 40 mg daily he is also using Ativan occasionally 0.5 mg every 4 hours and agitation Started metformin 500 mg twice daily and Lantus 25 units subcu nightly 07/18/2019 discussion yesterday evening with both sons and their wives concerning patient and his level of consciousness and skilll required Feel like patient will require a long-term facility at the time of discharge She is becoming more lethargic, they have decided to make patient a DNR 07/19/2019 patient today once again seems lethargic, however according to the johny ses last night even yesterday afternoon patient had to be given Thorazine, due to agitation 07/20/2019 according to the nurses patient had a much better night last night and today is awake alert and eating breakfast. There is some question about sleep deprivation as night nurse reports that patient has not slept previously for the last 48 hours, patient slept most of yesterday and most of last night. Patient's Respinol was DC'd yesterday, and the Thorazine was held due to no agitation. 07/21/2019 patient is once again much more alert starting to feed himself again, however he still tends to talk nonsensical, will say things that are inappropriate for the conversation. Will say things like he thinks is in a hotel will talk about people and past history of context. But he certainly is much more awake interactive today than 48 hours ago. 07/22/2019 yesterday afternoon unfortunately patient pulled his Melendez out started being hateful mean and threatening to the nurses. Last night had to be put in restraints his safety as well as the nurses. Also had to be given IV Thorazine again. Today patient is once again somewhat hostile 07/30/2019 according to discharge planning patient has been accepted to a bed in [place]. Patient is medically stable. Have change patient's Lantus once again today. Reason For Visit: HYPERGLYCEMIA Physical Exam Vital Signs: Temp Pulse Resp BP Pulse Ox 97.6 F 67 16 100/46 L 99 07/30/19 11:22 07/30/19 11:22 07/30/19 11:22 07/30/19 11:22 07/30/19 11:22 Intake & Output 07/29/19 07/30/19 07/31/19 06:59 06:59 06:59 Intake Total 300 Output Total 0 Balance 0 300 Weight 70.3 kg 69.7 kg General appearance: PRESENT: no acute distress, other - Appears to be in no distress, does not appear to be aggressive or hostile today Respiratory exam: PRESENT: clear to auscultation javier. ABSENT: rales, rhonchi, wheezes Cardiovascular exam: PRESENT: RRR. ABSENT: diastolic murmur, rubs, systolic murmur Neurological exam: PRESENT: alert, awake, oriented to person, oriented to place, oriented to time, oriented to situation, CN II-XII grossly intact. ABSENT: motor sensory deficit Psychiatric exam: PRESENT: appropriate affect, normal mood. ABSENT: homicidal ideation, suicidal ideation Results Laboratory Results: 07/19/19 13:13 07/20/19 05:23 Impressions: Modified Barium Swallow 07/18/19 00:00 IMPRESSION: LARYNGEAL PENETRATION AND ASPIRATION ABOVE. PLEASE SEE SPEECH PATHOLOGIST REPORT FOR OTHER FINDINGS AND RECOMMENDATIONS. Chest X-Ray 07/19/19 00:00 IMPRESSION: NO ACUTE FINDINGS. Head CT 07/19/19 11:51 IMPRESSION: Mild involutional changes and mild chronic microvascular ischemia. No acute intracranial imaging findings. EVIDENCE OF ACUTE STROKE: NO. Assessment and Plan - Diagnosis (1) Agitation Is this a current diagnosis for this admission?: Yes Plan: 07/16/19 Patient had to be given Haldol and Ativan IM this morning for agitation, threatening to strike the nurses, not allowing them to do their job. Patient has dementia reportedly 07/17/2019 patient is taking his risperdal all now 0.5 every 12 hours and using Ativan as needed. Much less agitation today. [id number] no sign of agitation patient lays in the bed and pretty much stares off into space at times patient does refuse to take p.o.'s as well as food 07/19/2019 required was seen twice yesterday for agitation with the nurses otherwise patient is sleeping 07/20/2019 no agitation last night, no agitation so far today 07/21/2019 no agitation that has required medication in the last 24 hours 07/22/2019 patient was once again agitated and aggressive yesterday afternoon and last night. Patient pulled out his urinary catheter himself in the nurses had to be put in restraints and given Thorazine She received Thorazine yesterday afternoon at 1642 patient received a dose of Risperdal 0.25 mg morning at 10 AM patient received a dose of Haldol last night at approximately 2300 hrs. 07/30/2019 no aggression patient is currently on Namenda 10 mg daily Celexa 40 mg daily, Risperdal 0.25 mg twice daily (2) UTI (urinary tract infection) Qualifiers: Urinary tract infection type: site unspecified Hematuria presence: with hematuria Qualified Code(s): N39.0 - Urinary tract infection, site not specified; R31.9 - Hematuria, unspecified Is this a current diagnosis for this admission?: Yes Plan: Resolved 07/30/2019 no symptoms of UTI (3) Uncontrolled diabetes mellitus Qualifiers: Diabetes mellitus type: type 2 Glycemic state: with hyperglycemia Qualified Code(s): E11.65 - Type 2 diabetes mellitus with hyperglycemia Is this a current diagnosis for this admission?: Yes Plan: I adjusted his Lantus last night with the after mentioned effect. I am just can leave things alone and see how he does again for another day. 07/30/2019 his blood sugar was 47 this morning I have changed his Lantus to 10 units nightly and 18 units every morning (4) Dementia Qualifiers: Dementia type: Alzheimer's disease Dementia behavioral disturbance: with behavioral disturbance Is this a current diagnosis for this admission?: Yes Plan: Case management is currently working on placement. 07/30/2019 dementia comes and goes. Patient has been accepted and family has accepted for transfer tomorrow (5) Multiple falls Is this a current diagnosis for this admission?: Yes Plan: Patient talks about falling into the kitchen table. Not sure if this is true. Due to dementia 07/17/2019 no evidence of falling here in the hospital patient does not get out of the bed unassisted side rails are up at all times 07/18/2019 no indication the patient tries to get out of bed unassisted 07/19/2019 he does try to get out of bed even though is not supposed to, and becomes agitated when not allowed to do so 07-20-19 Patient has been seen trying to get up out of bed, however nurses prevent him from doing so. 07/21/2019 no histories of falls here in the hospital but I believe if he was up out of bed or trying to get out of bed that he definitely would fall, due to weakness and due to unsteady gait 07/22/2019 patient has had no episodes of falling due to lack of ambulation and getting out of bed 07/30/2019 patient would be unsafe to be up and about without assistance. Patient is a fall risk - Time Time Spent with patient: 35 or more minutes - Transfer to placement tomorrow morning in [place]
--- NOTE | 2019-07-30 16:37 | PDOC TRANSFER SUMMARY ---
Impression - Admit/DC Date/PCP Admission Date/Primary Care Provider: 07/15/19 13:49 ROSA JEAN MD Discharge Date: 07/31/19 - Discharge Diagnosis (1) Agitation Is this a current diagnosis for this admission?: Yes (2) UTI (urinary tract infection) Is this a current diagnosis for this admission?: Yes (3) Uncontrolled diabetes mellitus Is this a current diagnosis for this admission?: Yes (4) Dementia Is this a current diagnosis for this admission?: Yes (5) Multiple falls Is this a current diagnosis for this admission?: Yes - Additional Information Resuscitation Status: Do Not Resuscitate Discharge Diet: Diabetic Discharge Activity: Supervised Activity Referrals: [facility] [Other] Home Medications: Atorvastatin Calcium [Lipitor 80 mg Tablet] 80 mg PO DAILY 02/18/19 Clopidogrel Bisulfate [Plavix 75 mg Tablet] 75 mg PO DAILY 02/18/19 Lisinopril [Prinivil 2.5 mg Tablet] 2.5 mg PO DAILY 02/18/19 Memantine HCl [Namenda 10 mg Tablet] 10 mg PO BID 02/18/19 Metformin HCl [Glucophage 500 mg Tablet] 500 mg PO BID 02/18/19 Metoprolol Tartrate [Lopressor 25 mg Tablet] 25 mg PO Q12 02/18/19 Atorvastatin Calcium [Lipitor 80 mg Tablet] 80 mg PO QHS tablet 07/30/19 Citalopram Hydrobromide [Celexa 20 mg Tablet] 40 mg PO DAILY tablet 07/30/19 Clopidogrel Bisulfate [Plavix 75 mg Tablet] 75 mg PO DAILY tablet 07/30/19 Insulin Glargine,Hum.rec.anlog [Lantus Insulin 100 Unit/1 ml 10 ml] 10 unit SUBCUT QHS unit 07/30/19 Insulin Glargine,Hum.rec.anlog [Lantus Insulin 100 Unit/1 ml 10 ml] 18 unit SUBCUT DAILY unit 07/30/19 Lisinopril [Prinivil 5 mg Tablet] 2.5 mg PO DAILY tablet 07/30/19 Memantine HCl [Namenda 10 mg Tablet] 10 mg PO DAILY tablet 07/30/19 Metformin HCl [Glucophage 500 mg Tablet] 500 mg PO BIDACBS tablet 07/30/19 Metoprolol Tartrate [Lopressor 25 mg Tablet] 25 mg PO Q12 tablet 07/30/19 Risperidone [Risperdal 0.25 mg Tablet] 0.25 mg PO BID tablet 07/30/19 History of Present Illiness History of Present Illness: SENTHIL WALDEN JR is a 83 year old male Physical Exam Vital Signs: Temp Pulse Resp BP Pulse Ox 98.1 F 78 17 105/57 L 99 07/30/19 16:02 07/30/19 16:02 07/30/19 16:02 07/30/19 16:02 07/30/19 16:02 Intake & Output 07/29/19 07/30/19 07/31/19 06:59 06:59 06:59 Intake Total 300 Output Total 0 Balance 0 300 Weight 70.3 kg 69.7 kg Results Laboratory Results: WBC 5.9 10^3/uL (4.0-10.5) 07/19/19 13:13 RBC 3.81 10^6/uL (4.35-5.55) L 07/19/19 13:13 Hgb 11.7 g/dL (13.5-17.0) L 07/19/19 13:13 Hct 34.5 % (37.9-51.0) L 07/19/19 13:13 MCV 90 fl (80-97) 07/19/19 13:13 MCH 30.8 pg (27.0-33.4) 07/19/19 13:13 MCHC 34.1 g/dL (32.0-36.0) 07/19/19 13:13 RDW 13.7 % (11.5-14.0) 07/19/19 13:13 Plt Count 290 10^3/uL (150-450) 07/19/19 13:13 Lymph % (Auto) 16.3 % (13-45) 07/19/19 13:13 Door % (Auto) 11.1 % (3-13) 07/19/19 13:13 Eos % (Auto) 7.7 % (0-6) H 07/19/19 13:13 Baso % (Auto) 0.6 % (0-2) 07/19/19 13:13 Absolute Neuts (auto) 3.8 10^3/uL (1.7-8.2) 07/19/19 13:13 Absolute Lymphs (auto) 1.0 10^3/uL (0.5-4.7) 07/19/19 13:13 Absolute Monos (auto) 0.7 10^3/uL (0.1-1.4) 07/19/19 13:13 Absolute Eos (auto) 0.5 10^3/uL (0.0-0.6) 07/19/19 13:13 Absolute Basos (auto) 0.0 10^3/uL (0.0-0.2) 07/19/19 13:13 Seg Neutrophils % 64.3 % (42-78) 07/19/19 13:13 PT 13.9 SEC (11.4-15.4) 07/15/19 10:39 INR 1.07 07/15/19 10:39 VBG pH 7.28 (7.30-7.42) L 07/15/19 10:39 VBG pCO2 35.1 mmHg (35-63) 07/15/19 10:39 VBG HCO3 16.1 mmol/L (20-32) L 07/15/19 10:39 VBG Base Excess -9.7 mmol/L 07/15/19 10:39 Sodium 145.4 mmol/L (137-145) H 07/20/19 05:23 Potassium 3.3 mmol/L (3.6-5.0) L 07/20/19 05:23 Chloride 112 mmol/L (98-107) H 07/20/19 05:23 Carbon Dioxide 24 mmol/L (22-30) 07/20/19 05:23 Anion Gap 9 (5-19) 07/20/19 05:23 BUN 12 mg/dL (7-20) 07/20/19 05:23 Creatinine 0.63 mg/dL (0.52-1.25) 07/20/19 05:23 Est GFR ( Amer) > 60 (>60) 07/20/19 05:23 Est GFR (MDRD) Non-Af > 60 (>60) 07/20/19 05:23 Glucose 190 mg/dL (75-110) H 07/20/19 05:23 POC Glucose 209 mg/dL (70-110) H 07/30/19 16:02 Hemoglobin A1c % 11.0 % (4.7-6.0) H 07/16/19 14:19 Lactic Acid 0.7 mmol/L (0.7-2.1) 07/16/19 14:19 Calcium 8.7 mg/dL (8.4-10.2) 07/20/19 05:23 Total Bilirubin 0.7 mg/dL (0.2-1.3) 07/15/19 10:39 Direct Bilirubin 0.2 mg/dL (0.0-0.4) 07/15/19 10:39 Neonat Total Bilirubin Not Reportable 07/15/19 10:39 Neonat Direct Bilirubin Not Reportable 07/15/19 10:39 Neonat Indirect Bili Not Reportable 07/15/19 10:39 AST 26 U/L (17-59) 07/15/19 10:39 ALT 18 U/L (<50) 07/15/19 10:39 Alkaline Phosphatase 103 U/L (38-126) 07/15/19 10:39 Ammonia < 8.7 umol/L (9-33) L 07/19/19 13:13 Total Protein 4.9 g/dL (6.3-8.2) L 07/15/19 10:39 Albumin 2.6 g/dL (3.5-5.0) L 07/15/19 10:39 Urine Color YELLOW 07/19/19 19:00 Urine Appearance CLEAR 07/19/19 19:00 Urine pH 6.0 (5.0-9.0) 07/19/19 19:00 Ur Specific [place] 1.017 07/19/19 19:00 Urine Protein 100 mg/dL (NEGATIVE) H 07/19/19 19:00 Urine Glucose (UA) 150 mg/dL (NEGATIVE) H 07/19/19 19:00 Urine Ketones 20 mg/dL (NEGATIVE) H 07/19/19 19:00 Urine Blood MODERATE (NEGATIVE) H 07/19/19 19:00 Urine Nitrite NEGATIVE (NEGATIVE) 07/19/19 19:00 Urine Bilirubin NEGATIVE (NEGATIVE) 07/19/19 19:00 Urine Urobilinogen NEGATIVE mg/dL (<2.0) 07/19/19 19:00 Ur Leukocyte Esterase NEGATIVE (NEGATIVE) 07/19/19 19:00 Urine WBC (Auto) 6 /HPF 07/19/19 19:00 Urine RBC (Auto) 4 /HPF 09/20/19 19:00 U Hyaline Cast (Auto) 4 /LPF 07/19/19 19:00 Urine Bacteria (Auto) TRACE /HPF 07/19/19 19:00 Squamous Epi Cells Auto <1 /HPF 07/19/19 19:00 Urine Mucus (Auto) OCC /LPF 07/19/19 19:00 Urine Ascorbic Acid NEGATIVE (NEGATIVE) 07/19/19 19:00 Impressions: Chest X-Ray 07/15/19 13:21 IMPRESSION: Cannot exclude limited left lower lobe pneumonia. Modified Barium Swallow 07/18/19 00:00 IMPRESSION: LARYNGEAL PENETRATION AND ASPIRATION ABOVE. PLEASE SEE SPEECH PATHOLOGIST REPORT FOR OTHER FINDINGS AND RECOMMENDATIONS. Chest X-Ray 07/19/19 00:00 IMPRESSION: NO ACUTE FINDINGS. Head CT 07/19/19 11:51 IMPRESSION: Mild involutional changes and mild chronic microvascular ischemia. No acute intracranial imaging findings. EVIDENCE OF ACUTE STROKE: NO. Stroke Is this a Stroke Patient?: No Acute Heart Failure - Is this a Heart Failure Patient?: No
[2019-07-30] MEDS: ATORVASTATIN CALCIUM 80 MG TABLET PO SCH (21:52)
[2019-07-30] MEDS ORDERED: INSULIN GLARGINE,HUM.REC.ANLOG 1,000 UNIT/10 ML VIAL SUBCUT SCH (22:00)
[2019-07-31] MEDS: HALOPERIDOL LACTATE INJ 5 MG/1 ML VIAL IV PRN (02:26)
[2019-07-31] MEDS: CHLORPROMAZINE HCL INJ 25 MG/1 ML AMPULE IV PRN (04:34)
[2019-07-31] MEDS: HEPARIN SOD (PORCINE) 5,000 UNIT/ML 1 ML VIAL SUBCUT SCH ×2 (05:49→13:02)
[2019-07-31] MEDS ORDERED: INFLUENZA QUAD (6MOS+) 2019-20 VAC 0.5 ML SYR IM ONE (08:00)
[2019-07-31] MEDS: INSULIN LISPRO 100 UNIT/ML 3 ML VIAL SUBCUT SCH ×2 (08:04→11:59)
[2019-07-31] MEDS: METFORMIN HCL 500 MG TABLET PO SCH (08:04)
[2019-07-31] MEDS: INSULIN GLARGINE,HUM.REC.ANLOG 1,000 UNIT/10 ML VIAL SUBCUT SCH (10:30)
[2019-07-31] MEDS: MEMANTINE HCL 10 MG TABLET PO SCH (10:31)
[2019-07-31] MEDS: CLOPIDOGREL BISULFATE 75 MG TABLET PO SCH (10:31)
[2019-07-31] MEDS: METOPROLOL TARTRATE 25 MG TABLET PO SCH (10:31)
[2019-07-31] MEDS: CITALOPRAM HYDROBROMIDE 20 MG TABLET PO SCH (10:32)
[2019-07-31] MEDS: LISINOPRIL 5 MG TABLET PO SCH (10:32)
[2019-07-31] MEDS: RISPERIDONE 0.25 MG TABLET PO SCH (10:32)
[2019-07-31 13:11] VITALS: BP 91/41
--- NOTE | 2019-08-15 17:03 | Progress Note Acknowledgement ---
Progress Note Acknowledgement Progess Note Acknowledgement: I, the undersigned member of the medical staff with appropriate privileges and with supervisory authority over [ ], a dependent practice allied health professional, acknowledge that I have reviewed the progress notes entered on this patient, and in my professional judgment believe that the assessment made and/or any care evidenced was appropriate
== END 2019-07-31 16:00 | disposition short-term general hospital (02) | DRG 638 ==
LOC: ER 10:26 → EH 13:49 → UNDOADMIN 13:49 → 4N 18:15 → 4W 07-29 12:57
PROVIDERS: ADMIT Family Medicine; ATTEND Family Medicine
DX: E11.10 Type 2 diabetes mellitus with ketoacidosis without coma (principal); N39.0 Urinary tract infection, site not specified; F02.81 Dementia in other diseases classified elsewhere, unspecified severity, with behavioral disturbance; R29.6 Repeated falls; I25.10 Atherosclerotic heart disease of native coronary artery without angina pectoris; E78.5 Hyperlipidemia, unspecified; I10 Essential (primary) hypertension; Z66 Do not resuscitate; F32.9 Major depressive disorder, single episode, unspecified; R31.9 Hematuria, unspecified; G30.9 Alzheimer's disease, unspecified; E78.00 Pure hypercholesterolemia, unspecified; F41.9 Anxiety disorder, unspecified; F20.9 Schizophrenia, unspecified; E87.6 Hypokalemia; I25.2 Old myocardial infarction; Z23 Encounter for immunization; Z79.84 Long term (current) use of oral hypoglycemic drugs; Z79.02 Long term (current) use of antithrombotics/antiplatelets; Z79.4 Long term (current) use of insulin; Z79.899 Other long term (current) drug therapy; Z88.6 Allergy status to analgesic agent; Z83.3 Family history of diabetes mellitus; Z82.49 Family history of ischemic heart disease and other diseases of the circulatory system
CPT/HCPCS: 36415; 70450; 71045; 74230; 80048; 80053; 81001; 82140; 82803; 82962; 83036; 83605; 85025; 85610; 87040; 87086; 90686; 93005; 93010; 96374; 99291; J0360; J0696; J1630; J1644; J1815; J2060; J3230; J3480; J3490; J7030